=== PATIENT | female | born 1960 | race Caucasian/White ===

== ENCOUNTER → 2020-04-06 10:29 | Outpatient (BNVA) | payer OTHER, SELFPAY | PROVIDERS: PCP Nurse Practitioner Family; Referring Provider Nurse Practitioner Family; Visit Provider Internal Medicine Endocrinology, Diabetes & Metabolism | DX: E11.65 Type 2 diabetes mellitus with hyperglycemia (principal); E11.3559 Type 2 diabetes mellitus with stable proliferative diabetic retinopathy, unspecified eye; E11.21 Type 2 diabetes mellitus with diabetic nephropathy; I10 Essential (primary) hypertension; E78.5 Hyperlipidemia, unspecified; E66.9 Obesity, unspecified; E55.9 Vitamin D deficiency, unspecified; Z79.4 Long term (current) use of insulin | CPT/HCPCS: 99212 ==

== ENCOUNTER → 2020-04-19 14:17 | Outpatient (BNVA) | payer OTHER, SELFPAY | PROVIDERS: PCP Nurse Practitioner Family; Referring Provider Nurse Practitioner Family; Visit Provider Dietitian, Registered | DX: Z76.89 Persons encountering health services in other specified circumstances (principal) ==

== ENCOUNTER 2020-06-28 13:34 | Outpatient (REF) | payer OTHER, SELFPAY ==
--- NOTE | 2020-06-28 13:38 | XR_ITS ---
EXAMINATION: XR ELBOW, LEFT CLINICAL INFORMATION: Trauma, pain left elbow. COMPARISON: Radiographs left elbow 04/16/2013 TECHNIQUE: AP, lateral, and oblique views of the left elbow. FINDINGS: There is no fracture, dislocation, or elbow capsular effusion. Normal bony mineralization. No joint narrowing or erosive change. There is borderline lateral epicondylar spur and a punctate mineralization near triceps insertion olecranon similar to prior study. XR/XR elbow LT min 3V IMPRESSION: 1. No fracture, effusion, or joint narrowing. 2. Borderline lateral epicondylar spur. 3. Punctate mineralization distal triceps similar to 2013.
== END 2020-06-28 13:35 | disposition home or self-care (01) ==
LOC: HO.HMGCX 13:34
PROVIDERS: PCP Nurse Practitioner Family; Visit Provider Nurse Practitioner Family
DX: S59.902A Unspecified injury of left elbow, initial encounter (principal); X58.XXXA Exposure to other specified factors, initial encounter; Y93.9 Activity, unspecified; Y92.9 Unspecified place or not applicable; Y99.8 Other external cause status
CPT/HCPCS: 73080

== ENCOUNTER → 2020-07-03 13:36 | Outpatient (BNVA) | payer OTHER, SELFPAY | PROVIDERS: PCP Nurse Practitioner Family; Visit Provider Internal Medicine Cardiovascular Disease | DX: I25.10 Atherosclerotic heart disease of native coronary artery without angina pectoris (principal) | CPT/HCPCS: 93005; 99212 ==

== ENCOUNTER → 2020-10-22 13:47 | Outpatient (BNVA) | payer OTHER, SELFPAY | PROVIDERS: PCP Nurse Practitioner Family; Visit Provider Dietitian, Registered | DX: E11.21 Type 2 diabetes mellitus with diabetic nephropathy (principal) | CPT/HCPCS: 97803 ==

== ENCOUNTER → 2020-12-07 10:30 | Outpatient (BNVA) | payer OTHER, SELFPAY | PROVIDERS: PCP Nurse Practitioner Family; Visit Provider Internal Medicine Endocrinology, Diabetes & Metabolism | DX: E11.65 Type 2 diabetes mellitus with hyperglycemia (principal); E11.3559 Type 2 diabetes mellitus with stable proliferative diabetic retinopathy, unspecified eye; E11.21 Type 2 diabetes mellitus with diabetic nephropathy; E78.5 Hyperlipidemia, unspecified; E66.9 Obesity, unspecified; E55.9 Vitamin D deficiency, unspecified; Z79.4 Long term (current) use of insulin | CPT/HCPCS: 82947; 99212 ==

== ENCOUNTER 2021-01-22 | Outpatient (REF) | payer OTHER, SELFPAY | END 2021-01-22 00:01 | disposition home or self-care (01) | LOC: HO.LNP | PROVIDERS: Visit Provider Nurse Practitioner Family | DX: Z13.89 Encounter for screening for other disorder (principal) ==

== ENCOUNTER 2021-01-23 14:38 | Outpatient (REF) | payer OTHER, SELFPAY | END 2021-01-23 14:39 | disposition home or self-care (01) | LOC: HO.LNP 14:38 | PROVIDERS: Visit Provider Nurse Practitioner Family | DX: R10.9 Unspecified abdominal pain (principal) | CPT/HCPCS: 87086 ==

== ENCOUNTER → 2021-02-27 11:43 | Outpatient (BNVA) | payer OTHER, SELFPAY | PROVIDERS: PCP Nurse Practitioner Family; Visit Provider Dietitian, Registered | DX: E11.21 Type 2 diabetes mellitus with diabetic nephropathy (principal) | CPT/HCPCS: 97803 ==

== ENCOUNTER → 2021-03-27 10:36 | Outpatient (BNVA) | payer OTHER, SELFPAY | PROVIDERS: PCP Nurse Practitioner Family; Visit Provider Nurse Practitioner Gerontology | DX: E11.65 Type 2 diabetes mellitus with hyperglycemia (principal); E11.3559 Type 2 diabetes mellitus with stable proliferative diabetic retinopathy, unspecified eye; E11.21 Type 2 diabetes mellitus with diabetic nephropathy; E78.5 Hyperlipidemia, unspecified; E55.9 Vitamin D deficiency, unspecified; E66.9 Obesity, unspecified; Z79.4 Long term (current) use of insulin | CPT/HCPCS: 82947; 83036; 99212 ==

== ENCOUNTER 2021-03-27 11:42 | Outpatient (REF) | payer OTHER, SELFPAY ==
[2021-03-27 14:32] LABS: Creatinine Urine 78.68 mg/dL; Microalbum/Creatinine Ratio Ur 208.4 ug/mg cr
[2021-03-27 14:49] LABS: Alanine Aminotransferase 27 U/L (0-31); Albumin Level 4.4 g/dL (3.5-5.0); Alkaline Phosphatase 76 U/L (39-117); Anion Gap 13 (12-20); Aspartate Amino Transferase 14 U/L (5-31); Bilirubin Total 0.4 mg/dL (0.0-1.0); Blood Urea Nitrogen 11 mg/dL (9-16); Calcium 9.5 mg/dL (8.4-10.2); Carbon Dioxide 23 mmol/L (22-29); Chloride 105 mmol/L (96-108); Cholesterol 96 mg/dL; Estimated Glomerular Filt Rate > 60; Glucose Fasting 177 mg/dL (60-99); HDL Cholesterol 30 mg/dL; LDL Cholesterol Calculated 47 mg/dl; Potassium 4.2 mmol/L (3.3-5.1); Sodium 137 mmol/L (135-145); Triglycerides 95 mg/dL
[2021-03-27 14:57] LABS: Free T4 (Free Thyroxine) 0.91 ng/dL (0.71-1.85); Vitamin B12 329 pg/mL (200-900); Vitamin D 25-OH Total 34.5 ng/mL (>30)
[2021-03-28 07:56] LABS: LDL Cholesterol Direct 43 mg/dL (<100)
== END 2021-03-27 11:43 | disposition home or self-care (01) ==
LOC: HO.10HDL 11:42
PROVIDERS: Internal Medicine Endocrinology, Diabetes & Metabolism; Absent Provider Nurse Practitioner Family; Visit Provider Nurse Practitioner Gerontology
DX: E11.65 Type 2 diabetes mellitus with hyperglycemia (principal); R10.9 Unspecified abdominal pain; E55.9 Vitamin D deficiency, unspecified
CPT/HCPCS: 36415; 80053; 80061; 82043; 82306; 82607; 83721; 84439; 84443; 87086

== ENCOUNTER 2021-04-05 11:19 | Outpatient (REF) | payer OTHER, SELFPAY ==
--- NOTE | ~2021-04-05 | MM_ITS ---
EXAMINATION: MM SCREENING DIGITAL BREAST TOMOSYNTHESIS, BILATERAL CLINICAL INFORMATION: Screening. Asymptomatic. The lifetime risk of breast cancer based on the Tyrer-Cuzick Model is 4%. COMPARISON: Mammography: 12/07/2018, 11/23/2017, 11/10/2016 TECHNIQUE: Digital breast tomosynthesis is performed in both the craniocaudal and mediolateral oblique views along with computer-aided detection (CAD). Synthesized 2D images are generated from the tomosynthesis. FINDINGS: The breasts are heterogeneously dense, which may obscure small masses (ACR BI-RADS breast composition Category c). There are no significant masses, abnormal calcifications, or other abnormalities. Breast tissue composition borders on average fibroglandular. Parenchymal pattern is similar to prior exams. The skin contours are smooth. No significant changes. MM/MM tomosynthesis screening BI IMPRESSION: No mammographic evidence of malignancy. ASSESSMENT: BI-RADS 2: Benign RECOMMENDATION: Routine annual mammography screening. This patient's information was entered into a reminder system with a target due date for their next mammogram.
== END 2021-04-05 11:20 | disposition home or self-care (01) ==
LOC: HO.MAMMO 11:19
PROVIDERS: PCP Nurse Practitioner Family; Visit Provider Obstetrics & Gynecology
DX: Z12.31 Encounter for screening mammogram for malignant neoplasm of breast (principal)
CPT/HCPCS: 77063; 77067

== ENCOUNTER → 2021-06-04 11:57 | Outpatient (BNVA) | payer OTHER, SELFPAY | PROVIDERS: PCP Nurse Practitioner Family; Visit Provider Dietitian, Registered | DX: E11.21 Type 2 diabetes mellitus with diabetic nephropathy (principal) | CPT/HCPCS: 97803 ==

== ENCOUNTER → 2021-07-09 13:39 | Outpatient (BNVA) | payer OTHER, SELFPAY | PROVIDERS: PCP Nurse Practitioner Family; Referring Provider Nurse Practitioner Family; Visit Provider Internal Medicine Cardiovascular Disease | DX: I25.10 Atherosclerotic heart disease of native coronary artery without angina pectoris (principal); I10 Essential (primary) hypertension; Z79.82 Long term (current) use of aspirin; Z79.899 Other long term (current) drug therapy | CPT/HCPCS: 93005; 99212 ==

== ENCOUNTER → 2021-07-17 11:32 | Outpatient (BNVA) | payer OTHER, SELFPAY | PROVIDERS: PCP Nurse Practitioner Family; Referring Provider Nurse Practitioner Family; Visit Provider Physician Assistant | DX: Z12.11 Encounter for screening for malignant neoplasm of colon (principal); K21.9 Gastro-esophageal reflux disease without esophagitis | CPT/HCPCS: 99202 ==

== ENCOUNTER → 2021-07-19 10:37 | Outpatient (BNVA) | payer OTHER, SELFPAY | PROVIDERS: PCP Nurse Practitioner Family; Visit Provider Nurse Practitioner Gerontology | DX: E11.65 Type 2 diabetes mellitus with hyperglycemia (principal); E11.21 Type 2 diabetes mellitus with diabetic nephropathy; E11.3559 Type 2 diabetes mellitus with stable proliferative diabetic retinopathy, unspecified eye; E78.5 Hyperlipidemia, unspecified; E66.9 Obesity, unspecified; E55.9 Vitamin D deficiency, unspecified; E04.9 Nontoxic goiter, unspecified; Z79.4 Long term (current) use of insulin; Z68.32 Body mass index [BMI] 32.0-32.9, adult | CPT/HCPCS: 82947; 83036; 99212 ==

== ENCOUNTER 2021-08-22 12:20 | Outpatient (REF) | payer OTHER, SELFPAY ==
--- NOTE | ~2021-08-22 | US_ITS ---
EXAMINATION: US THYROID CLINICAL INFORMATION: Nontoxic goiter, unspecified. COMPARISON: Ultrasound soft tissue head/neck 01/06/2017. TECHNIQUE: Linear transducer grayscale and color Doppler examination with attention to the region of the thyroid. FINDINGS: SIZE: Measurements of the thyroid lobes and nodules are given in sagittal, anteroposterior and transverse dimensions respectively. Right Thyroid Lobe: 3.84 x 2.38 x 1.41 cm, volume 6.73 mL. Parenchyma: The gland echotexture is heterogeneous. Thyroid vascularity is normal. Left Thyroid Lobe: 3.69 x 1.20 x 1.21 cm, volume 2.80 mL. Parenchyma: The gland echotexture is homogeneous. Thyroid vascularity is normal. Isthmus: 0.48 cm in maximum AP dimension. Estimated total number of nodules greater than or equal to 1 cm: 0. 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 Location: Right superior. Size: 0.80 x 0.48 x 0.77 cm, volume 0.15 mL. Nodule characteristics: Composition: Spongiform (0). Echogenicity: Anechoic (0). Shape: Not taller than wide (0). Margins: Smooth (0). Echogenic Foci: None (0). ACR TI-RADS total points: 0 ACR TI-RADS category: 1 NODES: Small nodes less than 0.79 cm in transverse dimension in bilateral neck. US/US thyroid IMPRESSION: Enlarged right thyroid gland. Nonsuspicious subcentimeter right upper pole nodule. ACR TI-RADS RECOMMENDATION REFERENCE: Ultrasound-guided fine-needle aspiration, followup ultrasound, no further follow up. * TR1 (0 point) and TR 2 (2 points): No FNA or follow up * TR3 (3 points): FNA if more than or equal to 2.5 cm in maximum dimension, followup ultrasound in 1, 3 and 5 years if 1.5 to 2.4 cm in maximum dimension. * TR4 (4-6 points): FNA if more than or equal to 1.5 cm in maximum dimension, followup ultrasound in 1, 2, 3 and 5 years if 1 to 1.4 cm in maximum dimension. * TR5 (more than or equal to 7 points): FNA if more than or equal to 1 cm in maximum dimension, followup ultrasound every year for 5 years if 0.5 to 0.9 cm in maximum dimension. * TR3, TR4 or TR5 nodules that are below the size threshold for follow up receive no follow up.
== END 2021-08-22 12:21 | disposition home or self-care (01) ==
LOC: HO.HMGCX 12:20
PROVIDERS: PCP Nurse Practitioner Family; Visit Provider Nurse Practitioner Gerontology
DX: E04.9 Nontoxic goiter, unspecified (principal)
CPT/HCPCS: 76536

== ENCOUNTER 2021-11-05 07:15 | Day surgery (SDC) | payer OTHER, SELFPAY ==
[2021-10-30 15:32] VITALS: BMI 32.5
--- NOTE | 2021-11-04 08:15 | HO.ANESPROP2 ---
Documented by User: Alme Dickinson NP 11/04/21 08:18 HPI - Anesthesia Eval Consult details Narrative: 61yo F for Upper Endoscopy and Colonoscopy Stable 07/2021 at yearly routine cardiac visit [facility] Active Problems Active Problems: All Active Problems (Updated 08/27/21 @ 14:29 by Hernán Underwood MD) Rash (Acute) Low back pain (Acute) Goiter (Acute) Chronic GERD (Acute) HTN (hypertension) (Acute) Screening for colon cancer (Acute) Left flank pain (Acute) Strain of cervical portion of trapezius muscle (Acute) CAD (coronary artery disease) (Acute) Elbow injury (Acute) Vitamin D deficiency (Acute) Obesity (BMI 30-39.9) (Acute) Dyslipidemia (Acute) 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 (Acute) Diabetic nephropathy associated with type 2 diabetes mellitus (Acute) Stable proliferative diabetic retinopathy (Acute) Diabetes type 2, uncontrolled (Acute) Dry both ear canals (Acute) Past Medical History Medical History Bursitis of both shoulders CAD (coronary artery disease) Diabetes Diabetes type 2, uncontrolled Diabetic nephropathy associated with type 2 diabetes mellitus Dyslipidemia HPV (human papilloma virus) infection HTN (hypertension) 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 Migraines Obesity (BMI 30-39.9) Osteoarthritis Pulmonary nodules Stable proliferative diabetic retinopathy Strain of cervical portion of trapezius muscle Tobacco abuse Vitamin D deficiency Family History Family History Father Diabetes mellitus Myocardial infarction Mother Unknown family medical history Maternal Grandmother No problems noted. Maternal Grandfather Unknown family medical history Paternal Grandfather Unknown family medical history Paternal Grandmother Unknown family medical history Paternal Aunt Ovarian cancer Surgical History Surgical History H/O colonoscopy History of section History of hysterectomy History of surgery Social History Social History Housing: House Alcohol intake: current Patient Tobacco Use Status: Current everyday Tobacco user Tobacco use type: Cigarette Cigarettes Per Day: 4 e-Cigarette/Vaping Use: Never Used Advance Directives: No Advance Directives Information Provided: Yes Current occupational status: unemployed Meds Allergies Allergy/AdvReac Type Severity Reaction Status Date / Time hydrocortisone Allergy Rash Verified 11/01/21 13:33 Home Medications Medication Instructions Recorded Confirmed Last Taken Type blood-glucose meter (FreeStyle 03/27/21 07/17/21 Unknown History Lite Meter) Exam Exam Date and Time: November 04, 2021 0815 Height,Weight and Vital Signs: Height 5 ft Weight 75.75 kg Pertinent Lab Results Pertinent Lab Results: Laboratory Tests 01/06/20 03/27/21 12:28 12:00 WBC 4.7 L Hgb 12.4 Hct 40.7 Plt Count 148 L Sodium 137 Potassium 4.2 Chloride 105 Carbon Dioxide 23 BUN 11 Creatinine 0.69 Narrative Narrative: EKG 07/2021 normal sinus rhythm normal EKG at 77 beats per minute Assessment and Plan Assessment Anesthesia Assessment: Chart Reviewed Documented by User: Gena Barron MD 11/05/21 08:41 [facility] Past Medical History Medical History Bursitis of both shoulders CAD (coronary artery disease) Diabetes Diabetes type 2, uncontrolled Diabetic nephropathy associated with type 2 diabetes mellitus Dyslipidemia HPV (human papilloma virus) infection HTN (hypertension) 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 Maternal Grandfather Unknown family medical history Paternal Grandfather Unknown family medical history Paternal Grandmother Unknown family medical history Paternal Aunt Ovarian cancer Surgical History Surgical History H/O colonoscopy History of section History of hysterectomy History of surgery History of Problems with Anesthesia: No Social History Social History Housing: House Alcohol intake: current Patient Tobacco Use Status: Current everyday Tobacco user Tobacco use type: Cigarette Cigarettes Per Day: 4 e-Cigarette/Vaping Use: Never Used Advance Directives: No Advance Directives Information Provided: Yes Current occupational status: unemployed Meds Allergies Allergy/AdvReac Type Severity Reaction Status Date / Time hydrocortisone Allergy Rash Verified 11/01/21 13:33 Home Medications Medication Instructions Recorded Confirmed Last Taken Type blood-glucose meter (FreeStyle 03/27/21 07/17/21 Unknown History Lite Meter) Exam Airway Mallampati Class: II TM Dist: >3cm Neck ROM: Full Loose/Missing/Broken Teeth: Yes, Upper and Lower Heart: RRR Lungs: CTA Assessment and Plan Final Anesthetic Review History of Problems with Anesthesia: No NPO: Yes ASA Class: III Final Preanesthetic Review: Meds/Allgs Chart Reviewed, Consent Obtained/Reviewed and Anes Risks/Benef Reviewed Patient Risk: Intermediate Procedure Risk: Intermediate Anesthetic Plan Anesthetic Plan: MAC: Disposition: Standard PACU
[2021-11-05 07:59] LABS: Glucose, Whole Blood 211 mg/dL (60-115)
[2021-11-05 08:01] VITALS: BP 176/69; PULSE 67; RESP 18; TEMP 36.3; O2SAT 97
--- NOTE | 2021-11-05 08:35 | P.HPSUR_ITS ---
Pre-Procedural Eval Section A Date of Service: 11/05/21 Section B Chief Complaint: screening,reflux Relevant Family History (Specify if Yes): No Relevant Social History: Tobacco Use Present Medications: see Short Stay Collaborative assessment Medical History: Significant History (Bursitis of both shoulders CAD (coronary artery disease) Diabetes Diabetes type 2, uncontrolled Diabetic nephropathy associated with type 2 diabetes mellitus Dyslipidemia HPV (human papilloma virus) infection HTN (hypertension) long-term (current) use of insulin Migraines Obesity (BMI 30-39.9) Osteo) History of Previous Operations: Relevant previous surgery/procedure and date(s) (H/O colonoscopy History of section History of hysterectomy History of surgery) Allergies: Allergies Allergy/AdvReac Type Severity Reaction Status Date / Time hydrocortisone Allergy Rash Verified 11/01/21 13:33 Review of Systems Sugical H&P ROS: Negative: Constitution, Cardiovascular, Respiratory, Neurological, Psychiatric, Hem-Onc, Allergic/Immunologic, Gastrointestinal, Genitourinary, Musculoskeletal, Integumentary, Endocrine and Eyes/Ears/Nose/Throat Exam Surgical H&P Exam: Normal: HEENT, Normal: Heart, Normal: Lungs, Normal: Extr emities, Normal: Abdomen, Normal: Skin and Normal: Neurological Plan Diagnosis/Plan: Unchanged I have reviewed the history and physical and performed a pertinent physical examination on my patient. No changes have occurred unless specified.
--- NOTE | 2021-11-05 08:36 | P.BOP_ITS ---
Brief Operative Note Date of Service: 11/05/21 Pre-op diagnosis: GERD Post-op diagnosis: same Procedure: see op note Surgeon: Felipe Tobar MD Anesthesia: MAC Was an Clinical Trial Data Manager used for this Procedure?: No Estimated blood loss (mL): 0 Condition: stable Disposition: PACU
--- NOTE | 2021-11-05 08:37 | W.PM.OPN ---
Operative Note Operative Note Date of Service: 11/05/21 Narrative: Procedure Description: EGD Indication: GERD Anesthesia: MAC FLEXIBLE TRANSORAL UPPER GASTROINTESTINAL ENDOSCOPY UPPER ENDOSCOPY Consent: Indications for the procedure and potential complications of bleeding, perforation, reaction to medications and missed diagnosis were discussed with the patient and informed consent was obtained. Instrument: Olympus GIF H 190 J mid size upper endoscope Monitoring: Vital signs and clinical assessment, continuous EKG monitoring, Pulse oximetry, Carbon Dioxide monitoring and blood pressure monitoring were done throughout the procedure. Procedure: The patient was placed in the left lateral decubitis position and pre-procedure medications were administered and a bite block was placed. The endoscope was inserted into the mouth and advanced under direct vision to the third part of duodenum. A careful inspection was made as the upper endoscope was withdrawn including a retroflexed examination of the proximal stomach; Findings and interventions are described below. Findings: Larynx:normal Esophagus: GE junction at 37 cm, diaphragm hiatus at 37 cm, no varices or esophagitis, possible short segment barretts, bx taken from GEJ and from distal and proximal esophagus in separate jars Stomach: Patchy gastric erythema. Biopsies were obtained. Grade 2 flap valve on retroflexed examination of the cardia. Duodenum: Normal bulb and descending duodenum, bx taken Intervention: Biopsies as noted above Impression/Findings: gastritis, possible H pylori possible barretts PLAN: await bx if h pylori pos then treat
[2021-11-05 09:03] VITALS: BP 123/54; PULSE 66; RESP 16; TEMP 36.2; O2SAT 100
[2021-11-05 09:18] VITALS: BP 117/66; PULSE 70; RESP 16; TEMP 36.4; O2SAT 96
[2021-11-05] MEDS: Lactated Ringers 1,000 ML 100 ML IVCONT (09:28)
== END 2021-11-05 10:27 | disposition home or self-care (01) ==
PROVIDERS: PCP Nurse Practitioner Family; Visit Provider Internal Medicine Gastroenterology
PROC: (CPT 43239; principal; 2021-11-05 08:50)
DX: K21.9 Gastro-esophageal reflux disease without esophagitis (principal); K29.50 Unspecified chronic gastritis without bleeding; K44.9 Diaphragmatic hernia without obstruction or gangrene; I25.10 Atherosclerotic heart disease of native coronary artery without angina pectoris; I10 Essential (primary) hypertension; E78.5 Hyperlipidemia, unspecified; E11.21 Type 2 diabetes mellitus with diabetic nephropathy; E11.3559 Type 2 diabetes mellitus with stable proliferative diabetic retinopathy, unspecified eye; E55.9 Vitamin D deficiency, unspecified; Z79.4 Long term (current) use of insulin; Z79.82 Long term (current) use of aspirin; Z79.899 Other long term (current) drug therapy; Z88.8 Allergy status to other drugs, medicaments and biological substances; F17.210 Nicotine dependence, cigarettes, uncomplicated
CPT/HCPCS: 43239; 82947; 88305; 88342

== ENCOUNTER 2021-11-14 10:21 | Outpatient (REF) | payer OTHER, SELFPAY ==
--- NOTE | ~2021-11-14 | XR_ITS ---
EXAMINATION: XR KNEE, LEFT CLINICAL INFORMATION: Pain left knee. COMPARISON: None TECHNIQUE: Four views of the left knee. FINDINGS: There is loss of tricompartment joint space with periapical spurring in the lateral and patellofemoral compartments. There is mild suprapatellar joint effusion with anterior superior patellar enthesophyte. No visible acute fracture, dislocation or lytic process seen. No bony erosive changes seen. XR/XR knee LT 4V IMPRESSION: Degenerative arthritic changes involving the tricompartment. Mild suprapatellar joint effusion. No acute fracture or dislocation seen.
== END 2021-11-14 10:22 | disposition home or self-care (01) ==
LOC: HO.HMGCX 10:21
PROVIDERS: Visit Provider Nurse Practitioner Family
DX: M25.562 Pain in left knee (principal)
CPT/HCPCS: 73564

== ENCOUNTER → 2021-12-03 12:20 | Outpatient (BNVA) | payer OTHER, SELFPAY | PROVIDERS: PCP Nurse Practitioner Family; Visit Provider Dietitian, Registered | DX: E11.21 Type 2 diabetes mellitus with diabetic nephropathy (principal); Z79.4 Long term (current) use of insulin; Z71.3 Dietary counseling and surveillance | CPT/HCPCS: 97803 ==

== ENCOUNTER 2022-01-23 13:00 | Outpatient (RCR) | payer OTHER, SELFPAY ==
--- NOTE | 2021-12-19 13:48 | MHC.PT.EP ---
[facility] [place] Office [place] Office [place] Office [address] Edgar Osborne [address] [phone] F: [phone] F: [phone] F: [phone] F: [phone] Physical Therapy Plan of Care Date of Evaluation: Date of Surgery: n/a Diagnosis: pain in L knee Assessment: Patient is a 61 year old female presenting to PT with complaints of pain in pain in her L knee. Pt reports onset of pain began 2 years ago due to possibly over stretching it. She presents today with impairments in pain, knee ROM, knee strength, hip strength. Pt's current occupation is none, with baseline physical activities including ADLs, ambulation, and stair negotiation. Pt expresses jail goal of reducing pain, and is motivated to work towards this in PT. Clinical presentation today is most consistent with signs and sx associated with chronic knee pain and pt will benefit from skilled PT to address the following problems and impairments noted upon evaluation: pain, knee ROM, knee strength, hip strength. These problems limit the patient with the following functional activities: ambulation, ADLs, stair negotiation. The prescribed treatment plan of care is medically necessary. Co-morbidities of CAD, T2DM, HTN, hx L hip surgery for leg length discrepancy in [place] at age 7 which is severely limiting her hip ROM were identified and taken into considerations of plan of care. Pt was educated on HEP, role of PT, prognosis, POC. Frequency and Duration: The patient will be seen 2 x week x 4 weeks Short Term Goals: Pt will demonstrate reduced pain to <4/10 in 2 weeks for improved QOL. Pt will demonstrate improved hip strength in abd by 1/3 MMT to 4/5 in 2 weeks for improved lumbopelvic stability. Pt will demonstrate improved knee MMT by 1/3 grade in 2 weeks. Group Home Goals: Pt will demonstrate improved LEFI score by 9 points in 4 weeks for improved functional mobility. Pt will demonstrate ability to negotiate stairs with min pain in 4 weeks for improved access to her home. Pt will demonstrate improved pain with ambulation in 4 weeks for improved access to the community. Treatment Plan: Modalities to reduce pain, spasms and effusion. Manual therapy to restore motion and function. Therapeutic exercise to improve strength and flexibility. Neuromuscular re-education for posture and balance. Therapeutic activities to return to functional activities of daily living. Electronically signed by: Mirna Dukes PT, DPT, ATC Please sign and return to therapist. Thank you for your referral.
--- NOTE | 2022-01-23 13:52 | MHC.PT.DC ---
[facility] [place] Office [place] Office [place] Office [address] Edgar Osborne [address] [phone] F: [phone] F: [phone] F: [phone] F: [phone] Physical Therapy Discharge Report Diagnosis: pain in L knee Date of Surgery: n/a Date of Evaluation: 12/19/21 Date of Discharge: 01/23/22 Treatments to Date: 9 Cancellations to Date: 1 No Shows to Date: 1 Discharge Status: Independent with HEP Recommend MD Follow-up Discharge Summary: Pt continues to be limited by pain more so in the back vs the knee but the knee is also continuing to give her problems. She has made some progress towards her goals but continues with functional limitations especially on the stairs. At this point appears pt has reached a plateau as there has been no new progress recently in terms of the knee. She does have underlying hip problems that are likely contributing to her knee and back pain. Discussed with pt recommendation to follow up with ortho to see if there is anything further they can do for her as we have maximized all benefits of skilled PT at this time. Pt is in agreement with this plan. Advised continuation of HEP as she has made some strength gains to this point. Electronically signed by: Mirna Dukes, PT, DPT, ATC Please sign and return to therapist. Thank you for your referral.
== END 2022-01-23 13:53 | disposition home or self-care (01) ==
LOC: HO.PTCHIC 13:00
PROVIDERS: PCP Nurse Practitioner Family; Visit Provider Nurse Practitioner Family
DX: M25.562 Pain in left knee (principal)
CPT/HCPCS: 97110; 97140; 97162

== ENCOUNTER 2022-02-11 10:50 | Outpatient (REF) | payer OTHER, SELFPAY ==
[2022-02-11 13:45] LABS: MANUAL DIFF FLAG NO
[2022-02-11 13:52] LABS: Appearance Urine Clear; Color Urine Yellow; Glucose Urine UA >=1000 mg/dL (Negative); Leukocyte Esterase Urine Negative (Negative); Nitrite Urine Negative (Negative); PH 6.5 (5.0-9.0); Specific Gravity - Urine 1.025 (1.005-1.025); UMIC TRIGGER UACC YES; Urine Blood Negative (Negative); Urine Ketones Negative (Negative); Urine Protein 30 (1+) mg/dL (Neg-Trace)
[2022-02-11 13:55] LABS: Bacteria Urine Trace (None Seen); Hyaline Casts Urine 0-2 /LPF (0-2); RBC Urine 0-2 /HPF (0-2); WBC Urine 0-5 /HPF (0-5)
[2022-02-11 13:59] LABS: Basophils Percent Auto 0.7 % (0-2); Eosinophils Absolute Auto 0.2 X10*3/uL (0.0-0.4); Eosinophils Percent Auto 3.6 % (0-4); Hematocrit 38.7 % (37.0-47.0); Hemoglobin 12.5 g/dl (12.0-16.0); Lymphocytes Percent Auto 47.1 % (20-40); Mean Corpuscular HGB Conc 32.3 g/dl (31.0-35.0); Mean Corpuscular Hemoglobin 25.8 pg (27.0-33.0); Mean Platelet Volume 12.6 fL (9.4-12.3); Monocytes Absolute Auto 0.4 X10*3/uL (0.1-1.2); Monocytes Percent Auto 8.6 % (2-11); Neutrophils Absolute Auto 1.7 x10*3/uL (2.0-8.3); Platelet Count 168 X10*3/uL (160-400); Red Blood Count 4.84 X10*6/uL (4.20-5.50); Red Cell Distribution Width 13.9 % (11.0-16.0); White Blood Count 4.2 X10*3/uL (4.8-10.8)
[2022-02-11 14:00] LABS: Estimated Average Glucose 243 mg/dL; Hemoglobin A1c % 10.1 %
[2022-02-11 14:04] LABS: Alanine Aminotransferase 32 U/L (0-31); Albumin Level 4.1 g/dL (3.5-5.0); Alkaline Phosphatase 80 U/L (39-117); Anion Gap 12 (12-20); Aspartate Amino Transferase 15 U/L (5-31); Bilirubin Total 0.2 mg/dL (0.0-1.0); Blood Urea Nitrogen 12 mg/dL (9-16); Calcium 9.2 mg/dL (8.4-10.2); Carbon Dioxide 27 mmol/L (22-29); Chloride 104 mmol/L (96-108); Cholesterol 124 mg/dL; Estimated Glomerular Filt Rate > 60; Glucose Fasting 299 mg/dL (60-99); HDL Cholesterol 32 mg/dL; LDL Cholesterol Calculated 64 mg/dl; Sodium 139 mmol/L (135-145); Total Protein 6.7 g/dL (6.5-8.0); Triglycerides 140 mg/dL
[2022-02-11 14:16] LABS: Creatinine Urine 58.68 mg/dL; Microalbum/Creatinine Ratio Ur 247.1 ug/mg cr
[2022-02-11 14:29] LABS: TSH reflex Free T4 2.09 uIU/mL (0.32-4.0)
== END 2022-02-11 10:51 | disposition home or self-care (01) ==
LOC: HO.HMGCLDS 10:50
PROVIDERS: PCP Nurse Practitioner Family; Visit Provider Nurse Practitioner Family
DX: E11.65 Type 2 diabetes mellitus with hyperglycemia (principal)
CPT/HCPCS: 36415; 80053; 80061; 81001; 82043; 83036; 84443; 85025

== ENCOUNTER 2022-04-07 11:30 | Outpatient (REF) | payer OTHER, SELFPAY ==
--- NOTE | ~2022-04-07 | MM_ITS ---
EXAMINATION: MM SCREENING DIGITAL BREAST TOMOSYNTHESIS, BILATERAL CLINICAL INFORMATION: Screening. Asymptomatic. COMPARISON: Mammography: 04/05/2021, 04/09/2019, 11/23/2017 TECHNIQUE: Digital breast tomosynthesis is performed in both the craniocaudal and mediolateral oblique views along with computer-aided detection (CAD). Synthesized 2D images are generated from the tomosynthesis. FINDINGS: The breasts are heterogeneously dense, which may obscure small masses (ACR BI-RADS breast composition Category c). Breast tissue composition borders on average fibroglandular. Parenchymal pattern is similar to prior studies. There are no significant masses, abnormal calcifications, or other abnormalities. Axilla and skin contours are unremarkable. No significant changes. MM/MM tomosynthesis screening BI IMPRESSION: No mammographic evidence of malignancy. ASSESSMENT: BI-RADS 1: Negative RECOMMENDATION: Routine annual mammography screening. This patient's information was entered into a reminder system with a target due date for their next mammogram.
== END 2022-04-07 11:31 | disposition home or self-care (01) ==
LOC: HO.MAMMO 11:30
PROVIDERS: PCP Nurse Practitioner Family; Visit Provider Nurse Practitioner Family
DX: Z12.31 Encounter for screening mammogram for malignant neoplasm of breast (principal)
CPT/HCPCS: 77063; 77067

== ENCOUNTER 2022-04-28 11:00 | Outpatient (RCR) | payer OTHER, SELFPAY ==
--- NOTE | 2022-04-03 11:04 | MHC.PT.EP ---
[facility] [place] Office [place] Office [place] Office [address] Edgar Osborne [address] [phone] F: [phone] F: [phone] F: [phone] F: [phone] Physical Therapy Plan of Care Date of Evaluation: Date of Surgery: none Diagnosis: low back pain Assessment: Patient is a 61 year old R handed female who presents with s/s consistent with low back pain. She does not work but does like to stay active and take care of the house. She does have help with cleaning and food. Patient past medical history includes chronic back pain and hip surgery at 7 yo with significant residual impairment. Current impairments include pain, posture, ROM, strength, activity tolerance and functional mobility. Functional limitations include decreased ability to sleep, walk, stand, transfer and be on feet for more than a few minutes. Patient is motivated with good rehab potential. Skilled PT will address impairments and functional limitations in order to achieve goals. Frequency and Duration: The patient will be seen 2x/week for 5 weeks Short Term Goals: I with HEP - 2 weeks Able to amb with cane - optimal mechanics - 3 weeks Family Practice Doctor Goals: LE strength 4-/5 grossly - 5 weeks Able to walk > 5 minutes without increased pain - 5 weeks Oswestry 50% or less - 5 weeks Treatment Plan: Modalities to reduce pain, spasms and effusion. Manual therapy to restore motion and function. Therapeutic exercise to improve strength and flexibility. Neuromuscular re-education for posture and balance. Therapeutic activities to return to functional activities of daily living. Electronically signed by: Caio Galloway, PT Please sign and return to therapist. Thank you for your referral.
--- NOTE | 2022-08-08 08:29 | MHC.PT.DC ---
[facility] [place] Office [place] Office [place] Office [address] Edgar Osborne [address] [phone] F: [phone] F: [phone] F: [phone] F: [phone] Physical Therapy Discharge Report Diagnosis: low back pain Date of Surgery: none Date of Evaluation: 04/03/22 Date of Discharge: 05/25/22 Treatments to Date: 4 Cancellations to Date: No Shows to Date: Discharge Status: Independent with HEP Discharge Summary: She is very weak in L quads and glutes and fatigues easily with exercises. I educated her that L hip weakness and limitations are causing compensation in low back which is contributing to L sided LBP. I gave her a 3/8 heel lift in L shoe as she has a gel lift/heel cup which I told her was not supportive enough and this made her gait compensations less. Electronically signed by: Caio Galloway PT Please sign and return to therapist. Thank you for your referral.
== END 2022-08-13 09:01 | disposition home or self-care (01) ==
LOC: HO.PTCHIC 11:00
PROVIDERS: PCP Nurse Practitioner Family; Visit Provider Nurse Practitioner Family
DX: M54.50 Low back pain, unspecified (principal)
CPT/HCPCS: 97110; 97116; 97162

== ENCOUNTER 2022-07-02 10:05 | Outpatient (REF) | payer OTHER, SELFPAY ==
--- NOTE | ~2022-07-02 | XR_ITS ---
EXAMINATION: XR KNEE AP STANDING X-ray left knee CLINICAL INFORMATION: Knee pain COMPARISON: X-ray left knee 11/14/2021 TECHNIQUE: AP bilateral standing view of the knees was obtained. 1 skyline view left knee FINDINGS: Left knee: Moderate-severe medial compartment joint space narrowing, marginal osteophytes. Mild degenerative varus. Marginal osteophytes in the lateral compartment. Prominent marginal osteophytes in the patellofemoral compartment with mild joint space loss. No acute fracture or dislocation. Right knee: There is a medial and lateral compartment joint space narrowing, small marginal osteophytes. XR/XR knee standing BI IMPRESSION: Left knee: Tricompartment osteoarthritis. Moderate-severe medial compartment arthritis. Interval worsening from previous. Right knee: Mild osteoarthritis
--- NOTE | ~2022-07-02 | XR_ITS ---
EXAMINATION: XR KNEE AP STANDING X-ray left knee CLINICAL INFORMATION: Knee pain COMPARISON: X-ray left knee 11/14/2021 TECHNIQUE: AP bilateral standing view of the knees was obtained. 1 skyline view left knee FINDINGS: Left knee: Moderate-severe medial compartment joint space narrowing, marginal osteophytes. Mild degenerative varus. Marginal osteophytes in the lateral compartment. Prominent marginal osteophytes in the patellofemoral compartment with mild joint space loss. No acute fracture or dislocation. Right knee: There is a medial and lateral compartment joint space narrowing, small marginal osteophytes. XR/XR knee LT 1V IMPRESSION: Left knee: Tricompartment osteoarthritis. Moderate-severe medial compartment arthritis. Interval worsening from previous. Right knee: Mild osteoarthritis
== END 2022-07-02 10:06 | disposition home or self-care (01) ==
LOC: HO.HOSX 10:05
PROVIDERS: Visit Provider Physician Assistant
DX: M17.12 Unilateral primary osteoarthritis, left knee (principal); M25.561 Pain in right knee
CPT/HCPCS: 20610; 73560; 73565; 99202; J1020

== ENCOUNTER 2022-07-07 09:06 | Outpatient (REF) | payer OTHER, SELFPAY ==
[2022-07-07 11:18] LABS: MANUAL DIFF FLAG NO
[2022-07-07 11:37] LABS: Basophils Percent Auto 0.8 % (0-2); Eosinophils Absolute Auto 0.2 X10*3/uL (0.0-0.4); Eosinophils Percent Auto 2.9 % (0-4); Hematocrit 41.1 % (37.0-47.0); Hemoglobin 12.8 g/dl (12.0-16.0); Imm Gran Abs Auto 0.01 X10*3/uL (0.00-0.03); Imm Gran Pct Auto 0.2 % (0.0-0.4); Lymphocytes Absolute Auto 2.4 X10*3/uL (1.2-4.9); Lymphocytes Percent Auto 45.8 % (20-40); Mean Corpuscular HGB Conc 31.1 g/dl (31.0-35.0); Mean Corpuscular Hemoglobin 25.6 pg (27.0-33.0); Mean Corpuscular Volume 82.2 fL (80.0-98.0); Mean Platelet Volume 12.6 fL (9.4-12.3); Monocytes Absolute Auto 0.5 X10*3/uL (0.1-1.2); Monocytes Percent Auto 8.9 % (2-11); Neutrophils Absolute Auto 2.1 x10*3/uL (2.0-8.3); Neutrophils Percent Auto 41.4 % (45-73); Platelet Count 185 X10*3/uL (160-400); Red Cell Distribution Width 14.3 % (11.0-16.0); White Blood Count 5.2 X10*3/uL (4.8-10.8)
[2022-07-07 12:04] LABS: Estimated Average Glucose 237 mg/dL; Hemoglobin A1c % 9.9 %
[2022-07-07 12:06] LABS: Alanine Aminotransferase 25 U/L (0-31); Albumin Level 4.1 g/dL (3.5-5.0); Alkaline Phosphatase 79 U/L (39-117); Anion Gap 10 (12-20); Aspartate Amino Transferase 16 U/L (5-31); Bilirubin Total 0.3 mg/dL (0.0-1.0); Blood Urea Nitrogen 12 mg/dL (9-16); Calcium 9.1 mg/dL (8.4-10.2); Carbon Dioxide 26 mmol/L (22-29); Chloride 108 mmol/L (96-108); Cholesterol 116 mg/dL; Estimated Glomerular Filt Rate > 60; Glucose Fasting 138 mg/dL (60-99); HDL Cholesterol 35 mg/dL; LDL Cholesterol Calculated 59 mg/dl; Potassium 3.9 mmol/L (3.3-5.1); Sodium 140 mmol/L (135-145); Total Protein 6.6 g/dL (6.5-8.0); Triglycerides 110 mg/dL
[2022-07-07 12:13] LABS: Appearance Urine Clear; Color Urine Yellow; Glucose Urine UA Negative (Negative); Leukocyte Esterase Urine Trace (Negative); Nitrite Urine Negative (Negative); UMIC TRIGGER UACC YES; Urine Blood Negative (Negative); Urine Ketones Negative (Negative); Urine Protein 30 (1+) mg/dL (Neg-Trace)
[2022-07-07 12:19] LABS: Bacteria Urine None Seen (None Seen); Hyaline Casts Urine 0-2 /LPF (0-2); RBC Urine 0-2 /HPF (0-2); WBC Urine 0-5 /HPF (0-5)
[2022-07-07 12:26] LABS: TSH reflex Free T4 3.29 uIU/mL (0.32-4.0)
== END 2022-07-07 09:07 | disposition home or self-care (01) ==
LOC: HO.HMGCLDS 09:06
PROVIDERS: Nurse Practitioner Gerontology; PCP Nurse Practitioner Family; Visit Provider Nurse Practitioner Family
DX: E11.65 Type 2 diabetes mellitus with hyperglycemia (principal); E04.9 Nontoxic goiter, unspecified
CPT/HCPCS: 36415; 80053; 80061; 81001; 81003; 83036; 84443; 85025

== ENCOUNTER → 2022-08-01 10:31 | Outpatient (BNVA) | payer OTHER, SELFPAY | PROVIDERS: PCP Nurse Practitioner Family; Visit Provider Internal Medicine Gastroenterology | DX: Z11.0 Encounter for screening for intestinal infectious diseases (principal); E11.65 Type 2 diabetes mellitus with hyperglycemia; E11.21 Type 2 diabetes mellitus with diabetic nephropathy; E11.3559 Type 2 diabetes mellitus with stable proliferative diabetic retinopathy, unspecified eye; I10 Essential (primary) hypertension; E78.5 Hyperlipidemia, unspecified; E55.9 Vitamin D deficiency, unspecified; F17.210 Nicotine dependence, cigarettes, uncomplicated; Z79.4 Long term (current) use of insulin | CPT/HCPCS: Q3014 ==

== ENCOUNTER 2022-08-15 14:09 | Outpatient (REF) | payer OTHER, SELFPAY ==
--- NOTE | ~2022-08-15 | CT_ITS ---
EXAMINATION: LUNG CANCER SCREENING CT CHEST WITHOUT CONTRAST CLINICAL INFORMATION: Current smoker with 42 pack year history COMPARISON: 05/08/2015 TECHNIQUE: Multidetector volumetric CT imaging of the chest was obtained noncontrast using low dose screening CT technique. Axial thin section 0.625 mm reformations in soft tissue and lung windows were obtained. Sagittal and coronal reformations were obtained. Axial MIP images were also created and reviewed. This CT examination was performed using dose optimization techniques as appropriate, variously including the following: *Automated exposure control *Adjustment of mA and/or kV according to patient size (this includes techniques or standardized protocols for targeted exams where dose is matched to indication/reason for exam; i.e. extremities or head) *Use of iterative reconstruction technique TOTAL EXAM DLP: 50 mGy-cm. FINDINGS: PULMONARY NODULES: No suspicious pulmonary nodules. There are a few stable scattered pulmonary nodules measuring 4 mm or less in mean diameter (see cruz images). LUNGS / PLEURA: Mild emphysema. Diffuse mild bronchial wall thickening without bronchiectasis. No pleural effusion or pneumothorax. MEDIASTINUM / PABLO: Heart normal in size without pericardial effusion. Great vessels normal caliber. No lymphadenopathy. Coronary calcifications present. Imaged thyroid gland unremarkable. CHEST WALL / AXILLA: Unremarkable. UPPER ABDOMEN: Included portions grossly unremarkable allowing for limitations in technique. OSSEOUS STRUCTURES: No acute or suspicious osseous abnormalities. CT/CT lung screening IMPRESSION: * No evidence of pulmonary malignancy. * There are no pulmonary nodules that meet criteria for short interval follow-up at this time. ASSESSMENT: Lung RADS category: 2. Benign appearance or behavior. Nodules with a very low likelihood of becoming a clinically active cancer due to size or lack of growth. Continue annual screening with low-dose CT in 12 months. Probability of malignancy less than 1%. INCIDENTAL FINDINGS (S CATEGORY): None. RECOMMENDATION: Follow up low dose CT chest in 1 year.
== END 2022-08-15 14:10 | disposition home or self-care (01) ==
LOC: HO.CT 14:09
PROVIDERS: Visit Provider Physician Assistant Medical
DX: Z12.2 Encounter for screening for malignant neoplasm of respiratory organs (principal); F17.210 Nicotine dependence, cigarettes, uncomplicated
CPT/HCPCS: 71271; G0296

== ENCOUNTER 2022-09-11 12:25 | Outpatient (REF) | payer OTHER, SELFPAY ==
[2022-09-13 15:22] LABS: H Pylori Breath Test Positive (Negative)
== END 2022-09-11 12:26 | disposition home or self-care (01) ==
LOC: HO.LNP 12:25
PROVIDERS: Visit Provider Internal Medicine Gastroenterology
DX: Z01.810 Encounter for preprocedural cardiovascular examination (principal); I10 Essential (primary) hypertension; I25.10 Atherosclerotic heart disease of native coronary artery without angina pectoris; M17.12 Unilateral primary osteoarthritis, left knee; E11.9 Type 2 diabetes mellitus without complications; F17.210 Nicotine dependence, cigarettes, uncomplicated; Z11.0 Encounter for screening for intestinal infectious diseases; Z79.899 Other long term (current) drug therapy
CPT/HCPCS: 83013; 93005; 99211; 99212

== ENCOUNTER → 2022-09-29 11:53 | Outpatient (BNVA) | payer OTHER, SELFPAY | PROVIDERS: PCP Nurse Practitioner Family; Visit Provider Dietitian, Registered | DX: E11.21 Type 2 diabetes mellitus with diabetic nephropathy (principal) | CPT/HCPCS: 97803 ==

== ENCOUNTER 2022-11-06 08:54 | Outpatient (REF) | payer OTHER, SELFPAY ==
[2022-11-07 12:26] LABS: H Pylori Breath Test Positive (Negative)
== END 2022-11-06 08:55 | disposition home or self-care (01) ==
LOC: HO.LNP 08:54
PROVIDERS: PCP Nurse Practitioner Family; Referring Provider Nurse Practitioner Family; Visit Provider Internal Medicine Gastroenterology
DX: Z11.0 Encounter for screening for intestinal infectious diseases (principal)
CPT/HCPCS: 83013; 99211

== ENCOUNTER 2022-11-13 10:22 | Outpatient (REF) | payer OTHER, SELFPAY ==
--- NOTE | ~2022-11-13 | XR_ITS ---
EXAMINATION: XR SHOULDER, RIGHT CLINICAL INFORMATION: Pain COMPARISON: None available. TECHNIQUE: Three views of the right shoulder. FINDINGS: Bone alignment is normal. No fracture or dislocation. Mild arthritis at the acromioclavicular joint. The humeral joint is normal. Small osteophyte and soft tissue calcification at the greater tuberosity. XR/XR shoulder RT min 2V IMPRESSION: Degenerative changes.
== END 2022-11-13 10:23 | disposition home or self-care (01) ==
LOC: HO.HOSX 10:22
PROVIDERS: PCP Nurse Practitioner Family; Visit Provider Physician Assistant
DX: M19.011 Primary osteoarthritis, right shoulder (principal); M75.81 Other shoulder lesions, right shoulder
CPT/HCPCS: 20610; 73030; 99202; J1020

== ENCOUNTER 2023-04-02 09:49 | Outpatient (AMB) | payer OTHER, SELFPAY ==
--- NOTE | 2023-04-02 10:00 | A.OFFPC_ITS ---
Vital Signs 04/02/23 10:02 Height 5 ft Weight 167 lb BMI 32.6 BP 148/74 H Blood Pressure Location Lt brachial Position Sitting Pulse 98 Pulse Source Pulse Oximeter Pulse Oximetry (%) 97 Oxygen Delivery Method Room Air Intake Visit Reasons: 3-4M follow up Allergies hydrocortisone Allergy (Verified 04/02/23 10:05) Rash Tobacco use date assessed: 04/02/23 Dental Screening Dental Screen Date: 04/02/23 Did you have a dental visit in the last 12 months?: Yes Did you have a dental problem in the last 6 months where you did not have access to dental care?: No Was dental information given to patient?: Patient has dentist HPI 3-4M follow up HPI Details Pt is a diabetic, on a statin. Due for A1C and microalbumin. Denies polyuria, polydipsia, and neuropathy. Pt denies any signs and symptoms of hypoglycemia and does know how to correct it. Pt reports that her blood sugar has been around 130. Labs have been ordered, highly encouraged pt to have these drawn. Pt has an upcoming appointment with endo. Will start irbesartan due to elevated BP and renal protection. 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 Maternal Grandfather Unknown family medical history Paternal Grandfather Unknown family medical history Paternal Grandmother Unknown family medical history Paternal Aunt Ovarian cancer Social History Housing: House Alcohol intake: current Patient Tobacco Use Status: Current everyday Tobacco user Tobacco use type: Cigarette Cigarettes Per Day: 6 Years Smoked: (onset 30yo, 1ppd x 32yrs, now 6-7cig/day, 30pyh) e-Cigarette/Vaping Use: Never Used Second Hand Smoke Exposure: No Current occupational status: unemployed Cognitive needs: No Hearing needs: No Vision needs: No Questionnaire Thrive Questionnaire Date Thrive assessed: 07/03/22 AUDIT C Alcohol Use Questionnaire (AUDIT-C) 1. How often do you have a drink containing alcohol?: Never 3. How often do you have six or more drinks on one occasion?: Never Total Score: 0 Score Reviewed/Action Taken: Yes RUDOLPH-7 AMB Questionnaire RUDOLPH-7 Date RUDOLPH - 7 assessed: 07/03/22 Source: Developed by Drs. Bryson Roca, Siri Ray, Jay Simms and colleagues, with an educational toby from [employer]. Review of Systems Const Reports as per HPI Physical exam (Primary Care) Vital Signs: Last Vital Signs Pulse 98 04/02/23 10:02 BP 148/74 H 04/02/23 10:02 Pulse Ox 79 L 04/02/23 10:02 Oxygen Delivery Method Room Air 04/02/23 10:02 BMI result Body Mass Index 32.6 Tobacco/Smoking Status: Tobacco use Status Tobacco use date assessed 04/02/23 04/02/23 10:06 Patient Tobacco Use Status Current everyday Tobacco 04/02/23 10:06 Tobacco use type Cigarette 04/02/23 10:06 e-Cigarette/Vaping Use Never Used 04/02/23 10:06 Thrive Assessment: Date of Thrive Assessment Date Thrive assessed 07/03/22 04/02/23 10:06 Const General: cooperative Nutritional Appearance: obese Orientation/consciousness: patient oriented x3 Resp Effort & Inspection: normal respiratory effort Auscultation: clear to auscultation bilaterally Cardio Rate: regular rate Rhythm: regular rhythm Heart sounds: S1 normal heart sound present and S2 normal heart sound present Neuro General: patient oriented x3 Extrem Other: bilat feet: + sensation with use of monofilament, feet intact Psych Appearance: grossly normal Mental Status: mental status grossly normal Speech and movement: Normal speech and movement present Affect: normal affect Attitude: cooperative Thought process: Normal thought process present Thought content: Normal thought content present Insight: Good insight present (Psych) Judgement: Good judgement present (Psych) Immunizations pneumoc 20-prabhu conj-dip cr(PF) 0.5 mL IM syringe Performing Provider: REGINA Ibrahim Performing Location: [facility] Administered by: PIETRO Toledo on 04/02/23 10:41 Dose Route Admin Location Dispensed Lot Number Expiration Date NDC Audio Engineer 0.5 mL IM Left Deltoid 0.5 mL [id number] 12/31/23 [employer] VIS Given Date VIS Provided VIS Publication Date 04/02/23 Single Vaccine 21 Eligibility Eligibility Date Funding Source Not VFC Eligible 04/02/23 Private Assessment and Plan Assessment & Plan (1) Diabetes type 2, uncontrolled: Comment: (IDDM2 - nephropathy, retinopathy) Code(s): E11.65 - Type 2 diabetes mellitus with hyperglycemia Plan: Labs ordered Plan The patient agreed to the use of a medical records field technician for this encounter. Scribed for REGINA Sotelo by Marybeth Queen medical records field technician, on 04/02/2023 at 10:10 EST. Orders: Orders Microalbumin, Random (w Creat) Today E11.65 - Type 2 diabetes mellitus with hyperglycemia Pneumococcal 20 Immunization Today Z23 - Encounter for immunization Medications: New irbesartan 75 mg PO DAILY 90 tabs 0RF Coding Level of Care Code Est Pt Level 3 (78453) Diagnoses Diabetes type 2, uncontrolled E11.65
[2023-04-02 10:02] VITALS: BP 148/74; PULSE 98; O2SAT 97; BMI 32.6
== END 2023-04-02 11:22 | disposition home or self-care (01) ==
PROVIDERS: PCP Nurse Practitioner Family; Visit Provider Nurse Practitioner Family
DX: Z23 Encounter for immunization (principal); E11.65 Type 2 diabetes mellitus with hyperglycemia
CPT/HCPCS: 90471; 90677; 99213

== ENCOUNTER 2023-04-07 10:20 | Outpatient (REF) | payer OTHER, SELFPAY ==
[2023-04-07 13:22] LABS: Appearance Urine Clear; Color Urine Yellow; Glucose Urine UA Negative (Negative); Leukocyte Esterase Urine Negative (Negative); Nitrite Urine Negative (Negative); PH 7.5 (5.0-9.0); Urine Blood Negative (Negative); Urine Ketones Negative (Negative); Urine Protein Trace mg/dL (Neg-Trace)
[2023-04-07 13:30] LABS: MANUAL DIFF FLAG NO
[2023-04-07 13:43] LABS: Basophils Percent Auto 0.9 % (0-2); Eosinophils Absolute Auto 0.2 X10*3/uL (0.0-0.4); Eosinophils Percent Auto 4.4 % (0-4); Hematocrit 40.1 % (37.0-47.0); Hemoglobin 12.4 g/dl (12.0-16.0); Imm Gran Abs Auto 0.01 X10*3/uL (0.00-0.03); Imm Gran Pct Auto 0.2 % (0.0-0.4); Lymphocytes Absolute Auto 2.1 X10*3/uL (1.2-4.9); Lymphocytes Percent Auto 46.8 % (20-40); Mean Corpuscular HGB Conc 30.9 g/dl (31.0-35.0); Mean Corpuscular Hemoglobin 25.5 pg (27.0-33.0); Mean Corpuscular Volume 82.3 fL (80.0-98.0); Mean Platelet Volume 12.2 fL (9.4-12.3); Monocytes Absolute Auto 0.3 X10*3/uL (0.1-1.2); Neutrophils Absolute Auto 1.9 x10*3/uL (2.0-8.3); Neutrophils Percent Auto 40.7 % (45-73); Platelet Count 185 X10*3/uL (160-400); Red Blood Count 4.87 X10*6/uL (4.20-5.50); White Blood Count 4.6 X10*3/uL (4.8-10.8)
[2023-04-07 13:59] LABS: Estimated Average Glucose 189 mg/dL; Hemoglobin A1c % 8.2 % (<6.0)
[2023-04-07 14:07] LABS: Alanine Aminotransferase 29 U/L (0-31); Alkaline Phosphatase 74 U/L (39-117); Anion Gap 11 (12-20); Aspartate Amino Transferase 16 U/L (5-31); Bilirubin Total 0.3 mg/dL (0.0-1.0); Blood Urea Nitrogen 12 mg/dL (9-16); Calcium 9.5 mg/dL (8.4-10.2); Carbon Dioxide 27 mmol/L (22-29); Chloride 108 mmol/L (96-108); Cholesterol 111 mg/dL (<200); Estimated Glomerular Filt Rate > 60; Glucose Fasting 130 mg/dL (60-99); HDL Cholesterol 30 mg/dL (>40); LDL Cholesterol Calculated 55 mg/dL (<100); Potassium 4.1 mmol/L (3.3-5.1); Sodium 142 mmol/L (135-145); Total Protein 7.1 g/dL (6.5-8.0); Triglycerides 132 mg/dL (<150)
[2023-04-07 14:12] LABS: TSH reflex Free T4 1.84 uIU/mL (0.32-4.0)
[2023-04-07 14:21] LABS: Creatinine Urine 69.71 mg/dL
== END 2023-04-07 10:21 | disposition home or self-care (01) ==
LOC: HO.HMGCLDS 10:20
PROVIDERS: PCP Nurse Practitioner Family; Visit Provider Nurse Practitioner Family
DX: E11.65 Type 2 diabetes mellitus with hyperglycemia (principal)
CPT/HCPCS: 36415; 80053; 80061; 81003; 82043; 82570; 83036; 84443; 85025

== ENCOUNTER 2023-04-09 11:09 | Outpatient (AMB) | payer OTHER, SELFPAY ==
[2023-04-09 11:20] VITALS: BMI 31.2
--- NOTE | 2023-04-09 11:20 | A.OFFVIS_ITS ---
Intake VS Expanded 04/09/23 11:20 Height 5 ft Weight 159 lb 13.362 oz BMI 31.2 Intake Visit Reasons: T2DM Allergies hydrocortisone Allergy (Verified 04/02/23 10:05) Rash HPI Nutrition Presentation Details Pt presents for MNT follow up for T2DM A1c at 8.2% (04/2023) Pt reports needing new glucometer and complains of pain in finger tips when monitoring glucose Meal pattern 11- 12 coffee with cream and diet sugar with 5 crackers and tuna fish with light jones 4-6 pm : chicken and potatoes or salad and chicken with olive oil and vinegar, water 8 pm snack on banana or yogurt Pt has questions regarding carbohydrates sources of foods food frequency fruits: 1-2/d vegetables: 3 x/wk protein : 6-8 oz/d dairy: 0-1/d starches > 15 /d fluids:water, coffee, diet soda : 32 oz/d MVI: taking Vit D DMMeds: metformin 1000 mg twice/d Lantus 40 units/d Trulicity 1.5mg/wk Most Recent Diabetes Results: Microalb/Creat Ratio 76.0 ug/mg cr (<30) H 04/07/23 Cholesterol 111 mg/dL (<200) 04/07/23 HDL Cholesterol 30 mg/dL (>40) L 04/07/23 Triglycerides 132 mg/dL (<150) 04/07/23 Creatinine 0.61 mg/dL (0.5-1.4) 04/07/23 Blood Urea Nitrogen 12 mg/dL (9-16) 04/07/23 Sodium 142 mmol/L (135-145) 04/07/23 Potassium 4.1 mmol/L (3.3-5.1) 04/07/23 Chloride 108 mmol/L (96-108) 04/07/23 Carbon Dioxide 27 mmol/L (22-29) 04/07/23 Calcium 9.5 mg/dL (8.4-10.2) 04/07/23 AST 16 U/L (5-31) 04/07/23 ALT 29 U/L (0-31) 04/07/23 Total Protein 7.1 g/dL (6.5-8.0) 04/07/23 Albumin 4.0 g/dL (3.5-5.0) 04/07/23 [facility] Medical History Cataracts, bilateral Nicotine dependence, cigarettes, uncomplicated History of endometrial cancer CAD (coronary artery disease) Vitamin D deficiency Obesity (BMI 30-39.9) Dyslipidemia [facility]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 Maternal Grandfather Unknown family medical history Paternal Grandfather Unknown family medical history Paternal Grandmother Unknown family medical history Paternal Aunt Ovarian cancer Social History Housing: House Alcohol intake: current Patient Tobacco Use Status: Current everyday Tobacco user Tobacco use type: Cigarette Cigarettes Per Day: 6 Years Smoked: (onset 30yo, 1ppd x 32yrs, now 6-7cig/day, 30pyh) e-Cigarette/Vaping Use: Never Used Second Hand Smoke Exposure: No Current occupational status: unemployed Cognitive needs: No Hearing needs: No Vision needs: No Assessment & Plan Assessment & Plan (1) Diabetic nephropathy associated with type 2 diabetes mellitus: Code(s): E11.21 - Type 2 diabetes mellitus with diabetic nephropathy Plan: Review diabetic meal planning concepts, carbohydrates sources of foods and its relationship to BG Pt will benefit from glucose sensor for self assessment, may recommend freestyle bill 3 kit. BW: 78 kg est kcal needs as per 25 kcal/kg bw: : 1950 -500 =1450 kcal/d (40% carb, 30% fat, 30% prot) est fluid needs as per 25 ml/kg bw: 1950 ml/d. Rec fiber: increase to 8-10 g per day and gradually increase to 25 g/d 35 g as tolerated Rec Na: < 1500 2000 mg /d Educate patient on: (R= Reviewed, V = verbalizes understanding N/R= Needs review N/A= not applicable) * Food sources of carbohydrates and serving adequate serving sizes : R V * Difference between complex carbohydrates and simple carbohydrates, role of fiber: R V * lean protein sources of foods: R * Differences between fats (MUFA/PUFA/saturated fats, trans fats) and food sources of various fats: R * Food sources of sodium and salt and healthy modifications for heart health and kidney health: R * How to interpret food labels: R * Healthy Plate method concept: R,V * Physical activity: benefits and precaution: R * Review chronic complications of uncontrolled diabetes : R Patient Instructions: Work on reducing your carbs at meal to 30-45g following healthy plate method Reduce on carb as snack to 15 g instead of 30 g , example 1 fruit with peanut butter instead of 2 fruits with peanut butter keep a food record and bring to your follow up Coding Level of Care Code Nutr Indiv Subseq (40102) Diagnoses Diabetic nephropathy associated with type 2 diabetes mellitus E11.21 Time Spent (min) 30
== END 2023-04-09 11:42 | disposition home or self-care (01) ==
PROVIDERS: PCP Nurse Practitioner Family; Visit Provider Dietitian, Registered
DX: E11.21 Type 2 diabetes mellitus with diabetic nephropathy (principal)

== ENCOUNTER → 2023-04-09 11:09 | Outpatient (BNVA) | payer OTHER, SELFPAY | PROVIDERS: PCP Nurse Practitioner Family; Visit Provider Dietitian, Registered | DX: E11.21 Type 2 diabetes mellitus with diabetic nephropathy (principal) | CPT/HCPCS: 97803 ==

== ENCOUNTER 2023-04-10 10:43 | Outpatient (REF) | payer OTHER, SELFPAY ==
--- NOTE | ~2023-04-10 | MM_ITS ---
EXAMINATION: MM SCREENING DIGITAL BREAST TOMOSYNTHESIS, BILATERAL CLINICAL INFORMATION: Screening. Asymptomatic. COMPARISON: Mammography: 04/07/2022, 04/05/2021, 04/09/2019, 11/23/2017 TECHNIQUE: Digital breast tomosynthesis is performed in both the craniocaudal and mediolateral oblique views along with computer-aided detection (CAD). Synthesized 2D images are generated from the tomosynthesis. FINDINGS: The breasts are heterogeneously dense, which may obscure small masses (ACR BI-RADS breast composition Category c). There are no suspicious masses, suspicious grouped calcifications, or areas of architectural distortion in either breast. The parenchymal pattern is stable from prior exams. MM/MM tomosynthesis screening BI IMPRESSION: No mammographic evidence of malignancy. ASSESSMENT: BI-RADS BI-RADS 1 - Negative RECOMMENDATION: Routine annual mammography screening. 1 year F/U This examination should not preclude the clinical evaluation of a suspicious palpable abnormality. This patient's information was entered into a reminder system with a target due date for their next mammogram.
== END 2023-04-10 10:44 | disposition home or self-care (01) ==
LOC: HO.MAMMO 10:43
PROVIDERS: PCP Nurse Practitioner Family; Visit Provider Nurse Practitioner Family
DX: Z12.31 Encounter for screening mammogram for malignant neoplasm of breast (principal)
CPT/HCPCS: 77063; 77067

== ENCOUNTER → 2023-04-10 11:45 | Outpatient (BNV) | payer OTHER, SELFPAY | PROVIDERS: PCP Nurse Practitioner Family; Visit Provider Radiology Diagnostic Radiology | DX: Z12.31 Encounter for screening mammogram for malignant neoplasm of breast (principal) | CPT/HCPCS: 77063; 77067 ==

== ENCOUNTER 2023-04-20 08:55 | Outpatient (AMB) | payer OTHER, SELFPAY ==
--- NOTE | 2023-04-20 08:59 | A.OFFVIS_ITS ---
Intake Intake Visit Reasons: ov- left knee pain Intake Note: Areli is a 62 year old female who presents today for a follow up of left knee, last injection 07/02/22. Patient reports last injection provided her some relief and is requesting to repeat injection. Finds little relief with Tylenol and Motrin. States glucose level is 104. Allergies hydrocortisone Allergy (Verified 04/20/23 09:14) Rash HPI ov- left knee pain HPI Details 62-year-old female [facility] knee pain. She had her last injection on 07/02/22 which provided her relief for about 3 months. She is interested in repeating the injection. She finds mild relief with Tylenol and Motrin. She has a history of diabetes. Her sugar level is 104 this morning. 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 Maternal Grandfather Unknown family medical history Paternal Grandfather Unknown family medical history Paternal Grandmother Unknown family medical history Paternal Aunt Ovarian cancer Housing: House Alcohol intake: current Patient Tobacco Use Status: Current everyday Tobacco user Tobacco use type: Cigarette Cigarettes Per Day: 6 Years Smoked: (onset 30yo, 1ppd x 32yrs, now 6-7cig/day, 30pyh) e-Cigarette/Vaping Use: Never Used Second Hand Smoke Exposure: No Current occupational status: unemployed Cognitive needs: No Hearing needs: No Vision needs: No Review of Systems Const All systems reviewed & are unremarkable except as noted in HPI and below Physical Exam Extrem Other: Left knee: Skin intact, no erythema or joint effusion. Tenderness along the medial and lateral joint line. Full ROM with crepitus. Negative Augustine?s. No ligamentous laxity. NVI. Office Procedures Joint Injection/Drain Joint Injection/Drain Primary Site: left knee Prep: site was prepped using aseptic technique, ethochloride spray was applied and injection warnings given Injected: 40 mg of, 80 mg of, with 8 mL of, 1% plain lidocaine and in the joint Approach Used: anterolateral Procedure: The patient tolerated the procedure well and there was some relief with the local anesthesia Coding 85007 - Glenohumeral/Tronchanteric Bursa/Intraarticular Procedure code (CPT) selection complete Assessment & Plan Assessment & Plan (1) Osteoarthritis of left knee: Code(s): M17.12 - Unilateral primary osteoarthritis, left knee Qualifiers: Osteoarthritis type: primary Qualified Code(s): M17.12 - Unilateral primary osteoarthritis, left knee Plan We discussed options today which include steroid injection. They did consent to move forward with the left knee injection, which was tolerated well. I recommended rest, ice and elevation and OTC anti-inflammatories PRN for discomfort. We also discussed their diabetes and the effect the steroid can have on their blood glucose levels; therefore, they will continue to monitor these very closely over the next 72 hours. If there are any concerns, they should report to the ED immediately. Patient Instructions: Scribed for Michaelle Block PA-C, by Matty Moore chief medical officer, on 04/20/2023 at 10:45 AM LISANDRO. Michaelle Bridges PA-C, have personally reviewed and agree with the information entered by the scribe. Coding Level of Care Code Est Pt Level 3 (49325) Diagnoses Primary osteoarthritis of left knee M17.12 Osteoarthritis type: primary CPT Codes Coding - Joint 7: 58574 - Glenohumeral/Tronchanteric Bursa/Intraarticular ([id number])
== END 2023-04-20 09:28 | disposition home or self-care (01) ==
PROVIDERS: PCP Nurse Practitioner Family; Visit Provider Physician Assistant
DX: M17.12 Unilateral primary osteoarthritis, left knee (principal)
CPT/HCPCS: 20610; 99213

== ENCOUNTER → 2023-04-20 08:55 | Outpatient (BNVA) | payer OTHER, SELFPAY | PROVIDERS: PCP Nurse Practitioner Family; Visit Provider Physician Assistant | DX: M17.12 Unilateral primary osteoarthritis, left knee (principal) | CPT/HCPCS: 20610; 99212; J1020 ==

== ENCOUNTER 2023-05-14 09:03 | Outpatient (AMB) | payer OTHER, SELFPAY ==
[2023-05-14 10:35] VITALS: BMI 33.2
--- NOTE | 2023-05-14 10:35 | MHC.AMNUTRGE ---
Intake VS Expanded 05/14/23 10:35 Height 5 ft Weight 169 lb 15.622 oz BMI 33.2 Intake Visit Reasons: 4 WEEKS/CONFIRMED Allergies hydrocortisone Allergy (Verified 04/20/23 09:14) Rash HPI Nutrition Presentation Details Pt present for MNT f/u for T2DM Pt brought her glucometer and her 14 day BG average at 128 mg/dL. Patient is monitoring in the fasting state only and fasting blood glucose ranges from 94 to 189 mg/dL. Patient reports choosing soft foods, typically starchy foods. Pt has dental screws in place but no denture snapped in place. Searches incorporating in diet: rice/pastas/mashed potatoes, root vegetables: fritters with ground beef/pork added , cereals (hot/cold) with 1% milk ,pancakes made with eggs protein foods: eggs, ground beef/pork added in fritters, beans (mixed in rice) fruits: 0-1/d dairy: in coffee , not including cheese/yogurt/ice cream vegetables: 0-1 serving/d beverages: water, diet sodas/reg soda/soup physical activity: none additional to daily life activities etoh: denies smoking: denies TXP-Mtdnuat-Dw.Jeor Equation Height 5 ft Weight 170 lb Resting Metabolic Rate 1251.88 Calculated Activity Level Sedentary Calories Needed to Maintain Weight 1502.26 Most Recent Diabetes Results: Microalb/Creat Ratio 76.0 ug/mg cr (<30) H 04/07/23 Cholesterol 111 mg/dL (<200) 04/07/23 HDL Cholesterol 30 mg/dL (>40) L 04/07/23 Triglycerides 132 mg/dL (<150) 04/07/23 Creatinine 0.61 mg/dL (0.5-1.4) 04/07/23 Blood Urea Nitrogen 12 mg/dL (9-16) 04/07/23 Sodium 142 mmol/L (135-145) 04/07/23 Potassium 4.1 mmol/L (3.3-5.1) 04/07/23 Chloride 108 mmol/L (96-108) 04/07/23 Carbon Dioxide 27 mmol/L (22-29) 04/07/23 Calcium 9.5 mg/dL (8.4-10.2) 04/07/23 AST 16 U/L (5-31) 04/07/23 ALT 29 U/L (0-31) 04/07/23 Total Protein 7.1 g/dL (6.5-8.0) 04/07/23 Albumin 4.0 g/dL (3.5-5.0) 04/07/23 [facility] Medical History Cataracts, bilateral Nicotine dependence, cigarettes, uncomplicated History of endometrial cancer CAD (coronary artery disease) Vitamin D deficiency Obesity (BMI 30-39.9) Dyslipidemia [facility] (current) use of insulin Diabetic nephropathy associated with type 2 diabetes mellitus Stable proliferative diabetic retinopathy Diabetes type 2, uncontrolled Osteoarthritis HPV (human papilloma virus) infection HTN (hypertension) Surgical History History of colonoscopy History of esophagogastroduodenoscopy (EGD) History of hysterectomy History of section History of surgery Family History Father Diabetes mellitus Myocardial infarction Mother Unknown family medical history Maternal Grandmother No problems noted. Maternal Grandfather Unknown family medical history Paternal Grandfather Unknown family medical history Paternal Grandmother Unknown family medical history Paternal Aunt Ovarian cancer Social History Housing: House Alcohol intake: current Patient Tobacco Use Status: Current everyday Tobacco user Tobacco use type: Cigarette Cigarettes Per Day: 6 Years Smoked: (onset 30yo, 1ppd x 32yrs, now 6-7cig/day, 30pyh) e-Cigarette/Vaping Use: Never Used Second Hand Smoke Exposure: No Current occupational status: unemployed Cognitive needs: No Hearing needs: No Vision needs: No Assessment & Plan Assessment & Plan (1) Diabetic nephropathy associated with type 2 diabetes mellitus: Code(s): E11.21 - Type 2 diabetes mellitus with diabetic nephropathy Plan: wt: 77 kg Est kcal needs as per MSJ: 1500- 250 = 1250 (40% carb, 30% protein/fat) Est fluid needs as per 30 ml/d: 2300 ml/d Est prot per day as per 1 g/kg bw: 77g/d Recommend fiber intake : 8-10 g per day and gradually increase to 25-28 g per day for women and 35-38 g for men or as tolerated Recommend sodium intake per day : less than 2000 mg Educated patient on: ( R = reviewed V = verbalizes understanding N/R = needs review N/A = not applicable Food sources of carbohydrate, adequate serving sizes and its role in various health conditions: R ,V Differences between complex carbohydrates a simple carbohydrates, role of fiber in diet: R ,V Differences between types of fats and role in diet (mono on saturated fat fatty acids, saturated fatty acids, trans fats): R V Food sources of sodium in salt and healthy modifications for heart health in kidney health: NR Healthy plate method concept: R V Physical activity: Benefits a precaution: R V Hypoglycemia protocol (rule of 15): V Dietary prevention of Hyperglycemia: R V monitor your blood sugar 2 hours after a meal (blood sugar goal less than 180 , 2 hours after the meal ): V Patient Instructions: Reduce on portion of starches and combine with protein foods - choose soft protein foods 2- 3 oz serving at meal (3 meals/day) (eggs, cottage cheese, fish, ground poultry/beef, protein shakes ) Drink water with meals, keep hydrated Coding Level of Care Code Nutr Indiv Subseq (54285) Diagnoses Diabetic nephropathy associated with type 2 diabetes mellitus E11.21 Time Spent (min) 30
[2023-05-19 12:06] VITALS: BMI 33.2
== END 2023-05-14 11:04 | disposition home or self-care (01) ==
PROVIDERS: PCP Nurse Practitioner Family; Visit Provider Dietitian, Registered
DX: E11.21 Type 2 diabetes mellitus with diabetic nephropathy (principal)

== ENCOUNTER → 2023-05-14 09:03 | Outpatient (BNVA) | payer OTHER, SELFPAY | PROVIDERS: PCP Nurse Practitioner Family; Visit Provider Dietitian, Registered | DX: E11.21 Type 2 diabetes mellitus with diabetic nephropathy (principal) | CPT/HCPCS: 97803 ==

== ENCOUNTER 2023-06-24 08:28 | Outpatient (AMB) | payer OTHER, SELFPAY ==
--- NOTE | 2023-06-24 08:30 | A.OFFVIS_ITS ---
Intake Vital Signs 06/24/23 08:36 Height 5 ft Weight 170 lb BMI 33.2 Intake Visit Reasons: ov- left knee Euflexxa #1 Intake Note: Areli a 63 year old female presents today for a left knee Euflexxa injection #1. Allergies hydrocortisone Allergy (Verified 06/24/23 08:36) Rash HPI ov- left knee Euflexxa #1 HPI Details 63-year-old female who returns to the [facility] today for left knee Euflexxa gel injection #1. 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 Maternal Grandfather Unknown family medical history Paternal Grandfather Unknown family medical history Paternal Grandmother Unknown family medical history Paternal Aunt Ovarian cancer Social History Housing: House Alcohol intake: current Patient Tobacco Use Status: Current everyday Tobacco user Tobacco use type: Cigarette Cigarettes Per Day: 6 Years Smoked: (onset 30yo, 1ppd x 32yrs, now 6-7cig/day, 30pyh) e-Cigarette/Vaping Use: Never Used Second Hand Smoke Exposure: No Current occupational status: unemployed Cognitive needs: No Hearing needs: No Vision needs: No Review of Systems Const All systems reviewed & are unremarkable except as noted in HPI and below Physical Exam Vital Signs: BMI result Body Mass Index 33.2 Extrem Other: Left knee: Skin intact, no erythema or joint effusion. Tenderness along the medial and lateral joint line. Full ROM with crepitus. Negative Augustine?s. No ligamentous laxity. NVI. Office Procedures Joint Injection/Drain Joint Injection/Drain Details: euflexxa left knee Primary Site: left knee Prep: site was prepped using aseptic technique, ethochloride spray was applied and injection warnings given Injected: in the joint Approach Used: anterolateral Procedure: The patient tolerated the procedure well Coding 17388 - Glenohumeral/Tronchanteric Bursa/Intraarticular Procedure code (CPT) selection complete Assessment & Plan Assessment & Plan (1) Osteoarthritis of left knee: Code(s): M17.12 - Unilateral primary osteoarthritis, left knee Qualifiers: Osteoarthritis type: primary Qualified Code(s): M17.12 - Unilateral primary osteoarthritis, left knee Plan We discussed options today which include Euflexxa gel injection. They did consent to move forward with the left knee Euflexxa gel injection #1, which was tolerated well. I recommended rest, ice and elevation and OTC anti- inflammatories PRN for discomfort. She will follow-up in 1 week for Euflexxa gel injection #2. Patient Instructions: Scribed for Michaelle Block PA-C, by Matty Moore certified medical records coder, on 06/24/2023 at 9:45 AM EST. I, Michaelle Block PA-C, have personally reviewed and agree with the information entered by the scribe. Coding Level of Care Code Procedure Only Diagnoses Primary osteoarthritis of left knee M17.12 Osteoarthritis type: primary CPT Codes Coding - Joint 7: 84564 - Glenohumeral/Tronchanteric Bursa/Intraarticular ([id number])
[2023-06-24 08:36] VITALS: BMI 33.2
== END 2023-06-24 09:17 | disposition home or self-care (01) ==
PROVIDERS: PCP Nurse Practitioner Family; Visit Provider Physician Assistant
DX: M17.12 Unilateral primary osteoarthritis, left knee (principal)
CPT/HCPCS: 20610

== ENCOUNTER → 2023-06-24 08:28 | Outpatient (BNVA) | payer OTHER, SELFPAY | PROVIDERS: PCP Nurse Practitioner Family; Visit Provider Physician Assistant | DX: M17.12 Unilateral primary osteoarthritis, left knee (principal) | CPT/HCPCS: 20610; J7323 ==

== ENCOUNTER 2023-07-01 09:03 | Outpatient (AMB) | payer OTHER, SELFPAY ==
--- NOTE | 2023-07-01 09:07 | A.OFFVIS_ITS ---
Intake Intake Visit Reasons: ov- left knee Euflexxa #2 Intake Note: Pt presents to the office today for a left knee euflexxa injection. Pt states the last injection helped a little bit with the pain. Pt states she does get occasional swelling but elevates her leg as much as she can. Allergies hydrocortisone Allergy (Verified 07/01/23 09:07) Rash HPI ov- left knee Euflexxa #2 HPI Details 63-year-old female who returns to the [facility] today for left knee Euflexxa gel injection #2. 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 Maternal Grandfather Unknown family medical history Paternal Grandfather Unknown family medical history Paternal Grandmother Unknown family medical history Paternal Aunt Ovarian cancer Social History Housing: House Alcohol intake: current Patient Tobacco Use Status: Current everyday Tobacco user Tobacco use type: Cigarette Cigarettes Per Day: 6 Years Smoked: (onset 30yo, 1ppd x 32yrs, now 6-7cig/day, 30pyh) e-Cigarette/Vaping Use: Never Used Second Hand Smoke Exposure: No Current occupational status: unemployed Cognitive needs: No Hearing needs: No Vision needs: No Review of Systems Const All systems reviewed & are unremarkable except as noted in HPI and below Physical Exam Extrem Other: Left knee: Skin intact, no erythema or joint effusion. Tenderness along the medial and lateral joint line. Full ROM with crepitus. Negative Augustine?s. No ligamentous laxity. NVI. Office Procedures Joint Injection/Drain Joint Injection/Drain Details: euflexxa left knee Primary Site: left knee Prep: site was prepped using aseptic technique, ethochloride spray was applied and injection warnings given Injected: in the joint Approach Used: anterolateral Procedure: The patient tolerated the procedure well Coding 07697 - Glenohumeral/Tronchanteric Bursa/Intraarticular Procedure code (CPT) selection complete Assessment & Plan Assessment & Plan (1) Osteoarthritis of left knee: Code(s): M17.12 - Unilateral primary osteoarthritis, left knee Qualifiers: Osteoarthritis type: primary Qualified Code(s): M17.12 - Unilateral primary osteoarthritis, left knee Plan We discussed options today which include Euflexxa gel injection. They did consent to move forward with the left knee Euflexxa gel injection #2, which was tolerated well. I recommended rest, ice and elevation and OTC anti- inflammatories PRN for discomfort.She will see us back in 1 week for Euflexxa gel injection #3. Patient Instructions: Scribed for Michaelle Block PA-C, by Matty Moore medical field representative, on 07/01/2023 at 9:30 AM EST. IMichaelle PA-C, have personally reviewed and agree with the information entered by the scribe. Coding Level of Care Code Procedure Only Diagnoses Primary osteoarthritis of left knee M17.12 Osteoarthritis type: primary CPT Codes Coding - Joint 7: 02530 - Glenohumeral/Tronchanteric Bursa/Intraarticular ([id number])
== END 2023-07-01 09:19 | disposition home or self-care (01) ==
PROVIDERS: PCP Nurse Practitioner Family; Visit Provider Physician Assistant
DX: M17.12 Unilateral primary osteoarthritis, left knee (principal)
CPT/HCPCS: 20610

== ENCOUNTER → 2023-07-01 09:03 | Outpatient (BNVA) | payer OTHER, SELFPAY | PROVIDERS: PCP Nurse Practitioner Family; Visit Provider Physician Assistant | DX: M17.12 Unilateral primary osteoarthritis, left knee (principal) | CPT/HCPCS: 20610; J7323 ==

== ENCOUNTER 2023-07-23 07:32 | Outpatient (AMB) | payer OTHER, SELFPAY ==
[2023-07-23 07:35] VITALS: BP 136/76; PULSE 81; O2SAT 97; BMI 33.4
--- NOTE | 2023-07-23 07:35 | MHC.PC.OV ---
Vital Signs 07/23/23 07:35 Height 5 ft Weight 171 lb BMI 33.4 BP 136/76 Blood Pressure Location Lt brachial Position Sitting Pulse 81 Pulse Source Pulse Oximeter Pulse Oximetry (%) 97 Oxygen Delivery Method Room Air Intake Visit Reasons: PE Intake Note: Pt is here today for PE. Allergies hydrocortisone Allergy (Verified 07/23/23 07:48) Rash Medication List - Last Reconciled 07/23/23 by Nahum Camarena, CAR [employer]- albuterol sulfate 90 mcg/actuation (Ventolin HFA) 2 puffs inhalation Q4-6H PRN 30 days Alcohol Pads (alcohol swabs) 1 pad topically; NS aspirin 81 mg PO DAILY blood sugar diagnostic (FreeStyle Lite Strips) As directed 3 times a day blood-glucose meter (FreeStyle Lite Meter kit) diabetes tid testing blood-glucose sensor (FreeStyle Kaveh 3 Sensor device) tid testing cetirizine (All Day Allergy (cetirizine)) 10 mg PO DAILY 30 days cholecalciferol (vitamin D3) (Vitamin D3) 50 mcg PO DAILY dulaglutide (Trulicity) 1.5 mg (0.5 mL) subcut QWEEK ibuprofen 800 mg PO TID PRN insulin glargine (Lantus Solostar U-100 Insulin) 40 units (0.4 mL) subcut QPM irbesartan 75 mg PO DAILY metformin 1,000 mg PO BID metoprolol succinate ER 50 mg PO DAILY omeprazole 20 mg PO BID 30 days peg-electrolyte soln 420 gram 240 mL PO Q10M pen needle, diabetic (BD Ultra-Fine Elise Pen Needle) As directed to inject insulin daily rosuvastatin 40 mg PO DAILY Tobacco use date assessed: 07/23/23 Dental Screening Dental Screen Date: 07/23/23 Did you have a dental visit in the last 12 months?: No Did you have a dental problem in the last 6 months where you did not have access to dental care?: No Was dental information given to patient?: Patient declined HPI PE HPI Details Pt is here for a PE. Will order labs. Colon screen is scheduled. Mammo is up to date. Pt is a diabetic, on an ARB and a statin. Last A1C was 8.2, due for repeat. Microalbumin is up to date. Denies polyuria, polydipsia, and neuropathy. Pt denies any signs and symptoms of hypoglycemia and does know how to correct it. She reports that her blood sugar recently was 117. Pt will be seeing endo. Pt has been referred to nephrology due to elevated microalbumin. Pt c/o left hand and wrist pain. Will order XRs. Pt has lung crackles on exam. Will order chest XR. Pt follows up with podiatry. 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 Maternal Grandfather Unknown family medical history Paternal Grandfather Unknown family medical history Paternal Grandmother Unknown family medical history Paternal Aunt Ovarian cancer Social History Housing: House Alcohol intake: current Patient Tobacco Use Status: Current everyday Tobacco user Tobacco use type: Cigarette Cigarettes Per Day: 6 Years Smoked: (onset 30yo, 1ppd x 32yrs, now 6-7cig/day, 30pyh) e-Cigarette/Vaping Use: Never Used Second Hand Smoke Exposure: No Current occupational status: unemployed Cognitive needs: No Hearing needs: No Vision needs: No Questionnaire PHQ-9 Over the last 2 weeks, how often have you been bothered by any of the following problems? 1. Little interest or pleasure in doing things: several days 2. Feeling down, depressed, or hopeless: not at all 3. Trouble falling or staying asleep, or sleeping too much: not at all 4. Feeling tired or having little energy: not at all 5. Poor appetite or overeating: not at all 6. Feeling bad about yourself - or that you are a failure or have let yourself or your family down: not at all 7. Trouble concentrating on things, such as reading the newspaper or watching television: not at all 8. Moving or speaking so slowly that other people could have noticed. Or the opposite - being so fidgety or restless that you have been moving around a lot more than usual: not at all 9. Thoughts that you would be better off or of hurting yourself in some way: not at all Total score: 1 Depression Screening Interpretation: Negative Depression Screening Done: Yes 27462 - PHQ-9 Billing: Yes Source: Developed by Drs. Bryson Roca, Siri Ray, Jay Simms and colleagues, with an educational toby from [employer]. Thrive Questionnaire Date Thrive assessed: 07/23/23 I am a: Patient What is your living situation today?: I have a steady place to live Within the past 12 months, did the food you bought not last and you didn't have the money to get more?: Never true Within the past 12 months, did you worry whether your food would run out before you got money to buy more?: Never true Do you have trouble paying for medicines?: No Do you have trouble getting transportation to medical appointments?: No Do you have trouble paying your heating and electricity bill?: No Do you have trouble taking care of your child, family member or friend?: No Do you have trouble with day-to-day activities such as bathing, preparing meals, shopping, managing finances, etc.?: No Are you currently unemployed and looking for a job?: No Are you interested in more education?: No Currently or been in a relationship where the following occur: no concerns reported THRIVE Score: 0 AUDIT C Alcohol Use Questionnaire (AUDIT-C) 1. How often do you have a drink containing alcohol?: Never 3. How often do you have six or more drinks on one occasion?: Never Total Score: 0 RUDOLPH-7 AMB Questionnaire RUDOLPH-7 Date RUDOLPH - 7 assessed: 07/23/23 Feeling nervous, anxious, or on edge: 0 = Not at all Not being able to stop or control worryin = Not at all Worrying too much about different things: 0 = Not at all Trouble relaxin = Not at all Being so restless that it is hard to sit still: 0 = Not at all Becoming easily annoyed or irritable: 0 = Not at all Feeling afraid as if something awful might happen: 0 = Not at all Total RUDOLPH-7 score (0-4 normal; 5-9 mild; 10-14 moderate; 15-21 severe): 0 Source: Developed by Drs. Bryson Roca, Siri Ray, Jay Simms and colleagues, with an educational toby from [employer]. RUDOLPH-7 Assessment Billing RUDOLPH-7 Assessment Tool: RUDOLPH-7 Assessment 57136 Review of Systems Const Denies chills and Denies fever(s) Eyes Denies blurry vision ENT Denies vertigo, Denies dizziness and Denies sore throat Card Denies chest pain at rest, Denies chest pain with activity, Denies diaphoresis, Denies dyspnea and Denies dyspnea on exertion Resp Denies cough, Denies dyspnea, Denies dyspnea on exertion and Denies wheezing GI Denies abdominal pain, Denies melena, Denies hematochezia, Denies constipation, Denies diarrhea and Denies loose stools Denies hematuria Musc Denies numbness and Denies tingling Skin/Breast Denies lesions Neuro Denies vertigo, Denies dizziness, Denies numbness and Denies tingling Psych Denies anxiety, Denies depression, Denies homicidal ideation, Denies suicidal ideation and Denies other (substance abuse) Aller/Immun Denies wheezing Physical exam (Primary Care) Vital Signs: Last Vital Signs Pulse 81 07/23/23 07:35 BP 136/76 07/23/23 07:35 Pulse Ox 97 07/23/23 07:35 Oxygen Delivery Method Room Air 07/23/23 07:35 BMI result Body Mass Index 33.4 Tobacco/Smoking Status: Tobacco use Status Tobacco use date assessed 07/23/23 07/23/23 07:38 Patient Tobacco Use Status Current everyday Tobacco 07/23/23 07:38 Tobacco use type Cigarette 07/23/23 07:38 e-Cigarette/Vaping Use Never Used 07/23/23 07:38 Depression Screening Interpretation: Negative Thrive Assessment: Date of Thrive Assessment Date Thrive assessed 07/03/22 07/23/23 07:38 Currently or been in a relationship where the following occur: no concerns reported Const General: cooperative Nutritional Appearance: obese Orientation/consciousness: patient oriented x3 HENMT Head: Yes normal to inspection, Yes normocephalic and Yes atraumatic Ears: TM's normal bilaterally Eyes General: appearance normal, both eyes and all related structures Alignment and Position: alignment normal and position normal Neck Neck: Yes normal visual inspection and Yes no lymphadenopathy Thyroid: Thyroid normal Resp Effort & Inspection: normal respiratory effort Auscultation: crackles on the right (faint) at the base and wheezes throughout Cardio Rate: regular rate Rhythm: regular rhythm Heart sounds: S1 normal heart sound present, S2 normal heart sound present and no murmurs GI Palpation (GI): Soft to palpation and nontender Auscultation: normal bowel sounds Skin Rashes: no rashes Neuro General: patient oriented x3, moves all extremities, no focal motor deficits and deep tendon reflexes 2+ bilaterally Romberg Test: Negative Extrem Other: left hand 3rd finger PIP joint slightly swollen with more distal finger deviation, bilat feet: + sensation with use of monofilament, oncyhomycosis to right big toenail, feet intact, generalized left wrist discomfort with radial and ulnar deivation, no pain with wrist flexion and extension Psych Appearance: grossly normal Mental Status: mental status grossly normal Speech and movement: Normal speech and movement present Affect: normal affect Attitude: cooperative Thought process: Normal thought process present Thought content: Normal thought content present Insight: Good insight present (Psych) Judgement: Good judgement present (Psych) Assessment and Plan Assessment & Plan (1) Diabetes type 2, uncontrolled: Code(s): E11.65 - Type 2 diabetes mellitus with hyperglycemia Plan: Labs ordered, including a1c (2) Encounter for routine adult physical exam with abnormal findings: Code(s): Z00.01 - Encounter for general adult medical examination with abnormal findings Plan: Labs ordered (3) Left hand pain: Code(s): M79.642 - Pain in left hand Plan: XR ordered (4) Left wrist pain: Code(s): M25.532 - Pain in left wrist Plan: XR ordered (5) Lung crackles: Code(s): R09.89 - Other specified symptoms and signs involving the circulatory and respiratory systems Plan: Chest XR ordered (6) Vitamin D deficiency: Code(s): E55.9 - Vitamin D deficiency, unspecified Plan: Labs ordered Plan The patient agreed to the use of a medical support specialist for this encounter. Scribed for Nahum Camarena, [facility]- by Marybeth Queen medical support specialist, on 07/23/2023 at 07:45 EST. Orders: Orders Complete Blood Count Auto Diff Today E11.65 - Type 2 diabetes mellitus with hyperglycemia, Z00.00 - Encounter for general adult medical examination without abnormal findings TSH reflex Free T4 Today E11.65 - Type 2 diabetes mellitus with hyperglycemia, Z00.00 - Encounter for general adult medical examination without abnormal findings UA CC w/rflx Micro + Cult Today E11.65 - Type 2 diabetes mellitus with hyperglycemia, Z00.00 - Encounter for general adult medical examination without abnormal findings XR hand LT 2V Today M25.532 - Pain in left wrist, M79.642 - Pain in left hand Comprehensive [place]. Panel Fast Today E11.65 - Type 2 diabetes mellitus with hyperglycemia, Z00.00 - Encounter for general adult medical examination without abnormal findings Lipid Panel Today E11.65 - Type 2 diabetes mellitus with hyperglycemia, Z00.00 - Encounter for general adult medical examination without abnormal findings XR wrist LT 2V Today M25.532 - Pain in left wrist, M79.642 - Pain in left hand XR chest 2V Today R09.89 - Other specified symptoms and signs involving the circulatory and respiratory systems XR DEXA axial skeleton Today E55.9 - Vitamin D deficiency, unspecified Vitamin D 25-OH Total Today E55.9 - Vitamin D deficiency, unspecified Medications: New prednisone 40 mg (2 x 20 mg) PO DAILY 5 days 10 tabs 0RF Refilled blood sugar diagnostic (FreeStyle Lite Strips) As directed 3 times a day 100 ea 11RF E11.65 - Type 2 diabetes mellitus with hyperglycemia cholecalciferol (vitamin D3) (Vitamin D3) 50 mcg PO DAILY 90 caps 1RF E55.9 - Vitamin D deficiency, unspecified Coding Level of Care Code Est Pt Prev Care 40-64y(22940) Diagnoses Diabetes type 2, uncontrolled E11.65 Encounter for routine adult physical exam with abnormal findings Z00.01 Left hand pain M79.642 Left wrist pain M25.532 Lung crackles R09.89 Vitamin D deficiency E55.9 Additional Codes RUDOLPH-7 Assessment Billing - RUDOLPH-7 Assessment Tool: RUDOLPH-7 Assessment 59301 ([id number])
== END 2023-07-23 08:13 | disposition home or self-care (01) ==
PROVIDERS: Visit Provider Nurse Practitioner Family
DX: Z00.01 Encounter for general adult medical examination with abnormal findings (principal); E11.65 Type 2 diabetes mellitus with hyperglycemia; M79.642 Pain in left hand; M25.532 Pain in left wrist; R09.89 Other specified symptoms and signs involving the circulatory and respiratory systems; E55.9 Vitamin D deficiency, unspecified
CPT/HCPCS: 99214; 99396

== ENCOUNTER 2023-07-23 08:16 | Outpatient (REF) | payer OTHER, SELFPAY ==
--- NOTE | ~2023-07-23 | XR_ITS ---
EXAMINATION: XR CHEST CLINICAL INFORMATION: Other specified symptoms and signs involving the circulatory system. COMPARISON: Chest x-ray March 01, 2018 TECHNIQUE: 2 views of the chest were obtained. FINDINGS: Cardiac silhouette is normal in size. The lungs are well aerated. There is no lobar consolidation. No pleural effusion or pneumothorax. Mild degenerative changes of the spine. XR/XR chest 2V IMPRESSION: No acute pulmonary pathology.
--- NOTE | ~2023-07-23 | XR_ITS ---
EXAMINATION: XR HAND/WRIST, LEFT CLINICAL INFORMATION: Pain. COMPARISON: Radiographs dated 09/12/2015. TECHNIQUE: PA, lateral, and oblique views of the left hand and wrist. FINDINGS: Bony alignment and mineralization are normal. There is a neutral ulnar variance. There is very mild osteoarthritic change of the interphalangeal joint of the thumb. There is mild osteoarthritic change of the second and fourth distal interphalangeal joints, and there is moderate osteoarthritic change of the third and fifth distal interphalangeal joints. There is mild osteoarthritic change of the first carpometacarpal joint. No fracture or dislocation is seen. The proximal and distal carpal rows are intact. No focal soft tissue swelling, gas or foreign body is seen. XR/XR hand wrist LT IMPRESSION: There are multi-focal osteolytic changes of the left hand and wrist, as detailed. No fracture or dislocation is seen. There is no abnormal bone erosion.
[2023-07-23 11:18] LABS: MANUAL DIFF FLAG NO
[2023-07-23 11:31] LABS: Basophils Percent Auto 0.2 % (0-2); Eosinophils Absolute Auto 0.2 X10*3/uL (0.0-0.4); Eosinophils Percent Auto 3.8 % (0-4); Hemoglobin 11.7 g/dl (12.0-16.0); Imm Gran Abs Auto 0.01 X10*3/uL (0.00-0.03); Imm Gran Pct Auto 0.2 % (0.0-0.4); Lymphocytes Absolute Auto 2.1 X10*3/uL (1.2-4.9); Lymphocytes Percent Auto 50.1 % (20-40); Mean Corpuscular HGB Conc 30.8 g/dl (31.0-35.0); Mean Corpuscular Hemoglobin 25.6 pg (27.0-33.0); Mean Corpuscular Volume 83.2 fL (80.0-98.0); Mean Platelet Volume 12.6 fL (9.4-12.3); Monocytes Absolute Auto 0.4 X10*3/uL (0.1-1.2); Monocytes Percent Auto 8.5 % (2-11); Neutrophils Absolute Auto 1.6 x10*3/uL (2.0-8.3); Neutrophils Percent Auto 37.2 % (45-73); Platelet Count 151 X10*3/uL (160-400); Red Blood Count 4.57 X10*6/uL (4.20-5.50); Red Cell Distribution Width 14.5 % (11.0-16.0); White Blood Count 4.2 X10*3/uL (4.8-10.8)
[2023-07-23 11:38] LABS: Appearance Urine Clear; Color Urine Yellow; Glucose Urine UA Negative (Negative); Leukocyte Esterase Urine Negative (Negative); Nitrite Urine Negative (Negative); Specific Gravity - Urine >= 1.030 (1.005-1.025); UMIC TRIGGER UACC YES; Urine Blood Negative (Negative); Urine Ketones Trace mg/dL (Negative); Urine Protein 30 (1+) mg/dL (Neg-Trace)
[2023-07-23 11:44] LABS: Bacteria Urine Trace (None Seen); Hyaline Casts Urine 0-2 /LPF (0-2); RBC Urine 0-2 /HPF (0-2); WBC Urine 0-5 /HPF (0-5)
[2023-07-23 11:55] LABS: Alanine Aminotransferase 26 U/L (0-31); Alkaline Phosphatase 75 U/L (39-117); Anion Gap 11 (12-20); Aspartate Amino Transferase 14 U/L (5-31); Bilirubin Total 0.3 mg/dL (0.0-1.0); Blood Urea Nitrogen 17 mg/dL (9-16); Calcium 8.9 mg/dL (8.4-10.2); Carbon Dioxide 25 mmol/L (22-29); Chloride 108 mmol/L (96-108); Cholesterol 115 mg/dL (<200); Estimated Glomerular Filt Rate > 60; Glucose Fasting 111 mg/dL (60-99); HDL Cholesterol 28 mg/dL (>40); LDL Cholesterol Calculated 60 mg/dL (<100); Potassium 3.8 mmol/L (3.3-5.1); Sodium 140 mmol/L (135-145); Total Protein 6.8 g/dL (6.5-8.0); Triglycerides 139 mg/dL (<150)
[2023-07-23 12:12] LABS: TSH reflex Free T4 2.67 uIU/mL (0.32-4.0); Vitamin D 25-OH Total 44.5 ng/mL (>30)
== END 2023-07-23 08:17 | disposition home or self-care (01) ==
LOC: HO.HMGCX 08:16
PROVIDERS: PCP Nurse Practitioner Family; Visit Provider Nurse Practitioner Family
DX: Z00.00 Encounter for general adult medical examination without abnormal findings (principal); E11.65 Type 2 diabetes mellitus with hyperglycemia; E55.9 Vitamin D deficiency, unspecified; R09.89 Other specified symptoms and signs involving the circulatory and respiratory systems; M25.532 Pain in left wrist; M79.642 Pain in left hand; D64.9 Anemia, unspecified
CPT/HCPCS: 36415; 71046; 73110; 73130; 80053; 80061; 81001; 82306; 84443; 85025

== ENCOUNTER 2023-07-27 11:46 | Outpatient (AMB) | payer OTHER, SELFPAY ==
[2023-07-27 11:59] VITALS: BMI 33.4
--- NOTE | 2023-07-27 11:59 | A.OFFVIS_ITS ---
Intake Vital Signs 07/27/23 11:59 Height 5 ft Weight 171 lb BMI 33.4 Intake Visit Reasons: ov- Left knee Euflexxa injection #3 Intake Note: Areli a 63 year old female presents today for bilateral knee Euflexxa injection #3. Allergies hydrocortisone Allergy (Verified 07/27/23 11:59) Rash HPI ov- Left knee Euflexxa injection #3 HPI Details 63-year-old female who returns to the [facility] today for left knee Euflexxa gel injection #3. 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 Maternal Grandfather Unknown family medical history Paternal Grandfather Unknown family medical history Paternal Grandmother Unknown family medical history Paternal Aunt Ovarian cancer Social History Housing: House Alcohol intake: current Patient Tobacco Use Status: Current everyday Tobacco user Tobacco use type: Cigarette Cigarettes Per Day: 6 Years Smoked: (onset 30yo, 1ppd x 32yrs, now 6-7cig/day, 30pyh) e-Cigarette/Vaping Use: Never Used Second Hand Smoke Exposure: No Current occupational status: unemployed Cognitive needs: No Hearing needs: No Vision needs: No Review of Systems Const All systems reviewed & are unremarkable except as noted in HPI and below Physical Exam Vital Signs: BMI result Body Mass Index 33.4 Extrem Other: Left knee: Skin intact, no erythema or joint effusion. Tenderness along the medial and lateral joint line. Full ROM with crepitus. Negative Augustine?s. No ligamentous laxity. NVI. Office Procedures Joint Injection/Drain Joint Injection/Drain Details: left knee euflexxa Primary Site: left knee Prep: site was prepped using aseptic technique, ethochloride spray was applied and injection warnings given Injected: in the joint Approach Used: anterolateral Procedure: The patient tolerated the procedure well and there was some relief with the local anesthesia Coding 20289 - Glenohumeral/Tronchanteric Bursa/Intraarticular Procedure code (CPT) selection complete Assessment & Plan Assessment & Plan (1) Osteoarthritis of left knee: Code(s): M17.12 - Unilateral primary osteoarthritis, left knee Qualifiers: Osteoarthritis type: primary Qualified Code(s): M17.12 - Unilateral primary osteoarthritis, left knee Plan We discussed options today which include Euflexxa gel injection. They did consent to move forward with the left knee Euflexxa gel injection #3, which was tolerated well. I recommended rest, ice and elevation and OTC anti- inflammatories PRN for discomfort. If symptoms persist or worsens over the next 6-8 weeks, patient will contact the office, otherwise follow-up as needed. Patient Instructions: Scribed for Michaelle Block PA-C, by Matty Moore medical appointment clerk, on 07/27/2023 at 12:45 PM EST. I, Michaelle Block PA-C, have personally reviewed and agree with the information entered by the scribe. Coding Level of Care Code Procedure Only Diagnoses Primary osteoarthritis of left knee M17.12 Osteoarthritis type: primary CPT Codes Coding - Joint 7: 74768 - Glenohumeral/Tronchanteric Bursa/Intraarticular ([id number])
== END 2023-07-27 13:01 | disposition home or self-care (01) ==
PROVIDERS: PCP Nurse Practitioner Family; Visit Provider Physician Assistant
DX: M17.12 Unilateral primary osteoarthritis, left knee (principal)
CPT/HCPCS: 20610

== ENCOUNTER → 2023-07-27 11:46 | Outpatient (BNVA) | payer OTHER, SELFPAY | PROVIDERS: PCP Nurse Practitioner Family; Visit Provider Physician Assistant | DX: M17.12 Unilateral primary osteoarthritis, left knee (principal) | CPT/HCPCS: 20610; J7323 ==

== ENCOUNTER 2023-08-11 10:42 | Outpatient (REF) | payer OTHER, SELFPAY ==
--- NOTE | ~2023-08-11 | MM_ITS ---
EXAMINATION: BONE DENSITOMETRY CLINICAL INDICATION: Vitamin D deficiency, unspecified. COMPARISON: This is the patient's baseline examination. TECHNIQUE: Using a [employer] DXA System (software version: 13.1) manufactured by [employer], dual-energy x-ray absorptiometry was performed of the lumbar spine and right hip. The images are of good technical quality. Summary results are attached. FINDINGS: RIGHT FEMUR, NECK: BMD 1.035 g/cm2, Z-score 1.1, T-score 0.0, normal. RIGHT FEMUR, TOTAL: BMD 1.095 g/cm2, Z-score 1.5, T-score 0.7, normal. AP SPINE L1-L4: BMD 1.215 g/cm2, Z-score 1.1, T-score 0.3, normal. IDENTIFIED RISK FACTORS: Early menopause, bilateral oophorectomy, osteoporosis, secondary osteoporosis, tobacco use (current smoker). HISTORY OF FRACTURE: None listed. MEDICATIONS: Vitamin D. MM/XR DEXA axial skeleton IMPRESSION: 1. DIAGNOSIS: Normal bone density based on the lowest T-score value of 0.0 in the femoral neck applying World Health Organization criteria. 2. 10-YEAR FRACTURE RISK PREDICTION, FRAX: According to the guidelines, FRAX calculation should only be performed on patients in the osteopenia bone density category. Therefore, FRAX was not performed on this patient. 3. Treatment Recommendations: NOF guidelines recommend consideration for treatment in postmenopausal women and men age 50 and older presenting with the following: -A hip or vertebral (clinical or morphometric) fracture. -T-score less than or equal to -2.5 at the femoral neck or spine after appropriate evaluation to exclude secondary causes. -Low bone mass at the hip or spine and a 10-year fracture probability by FRAX of greater than or equal to 3% for hip fracture or greater than or equal to 20% for major osteoporotic fracture based on the [place] adapted WHO algorithm. 4. Other Recommendations: All treatment decisions require clinical judgment and consideration of individual patient factors, including patient preferences, comorbidities, previous drug use, risk factors not captured in the FRAX model (e.g. frailty, falls, vitamin D deficiency, increased bone turnover, interval significant decline in bone density) and possible under or overestimation of fracture risk by FRAX. FUTURE SCAN RECOMMENDATION: People with diagnosed cases of osteoporosis or at high risk for fracture should have regular bone mineral density tests. For patients eligible for Medicare, routine testing is allowed once every 2 years. The testing frequency can be increased to one year for patients who have rapidly progressing disease, those who are receiving or discontinuing medical therapy to restore bone mass, or have additional risk factors.
== END 2023-08-11 10:43 | disposition home or self-care (01) ==
LOC: HO.MAMMO 10:42
PROVIDERS: PCP Nurse Practitioner Family; Visit Provider Nurse Practitioner Family
DX: Z13.820 Encounter for screening for osteoporosis (principal); Z78.0 Asymptomatic menopausal state; E55.9 Vitamin D deficiency, unspecified
CPT/HCPCS: 77080

== ENCOUNTER 2023-08-13 06:15 | Day surgery (SDC) | payer OTHER, SELFPAY ==
[2023-06-23 15:17] VITALS: BMI 32.6
[2023-08-13 06:59] VITALS: BP 147/73; PULSE 77; TEMP 36.2; O2SAT 96; BMI 33.2
[2023-08-13 07:11] LABS: Glucose, Whole Blood 125 mg/dL (60-115)
[2023-08-13] MEDS: Lactated Ringers 1,000 ML 50 ML IVCONT (07:49)
--- NOTE | 2023-08-13 08:11 | P.HPSUR_ITS ---
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 Migraines Obesity (BMI 30-39.9) Osteo) History of Previous Operations: Relevant previous surgery/procedure and date(s) ( H/O colonoscopy History of section History of hysterectomy History of surgery) Allergies: Allergies Allergy/AdvReac Type Severity Reaction Status Date / Time hydrocortisone Allergy Rash Verified 07/27/23 11:59 Review of Systems Sugical H&P ROS: Negative: Constitution, Cardiovascular, Respiratory, Neurological, Psychiatric, Hem-Onc, Allergic/Immunologic, Gastrointestinal, Genitourinary, Musculoskeletal, Integumentary, Endocrine and Eyes/Ears/Nose/Throat Exam Surgical H&P Exam: Normal: HEENT, Normal: Heart, Normal: Lungs, Normal: Extremities, Normal: Abdomen, Normal: Skin and Normal: Neurological Plan Diagnosis/Plan: Unchanged I have reviewed the history and physical and performed a pertinent physical examination on my patient. No changes have occurred unless specified. Time Spent With Patient Time: Total time managing care of this patient today ____ minutes.
--- NOTE | 2023-08-13 08:12 | P.OP_ITS ---
Operative Note Operative Note Date of Service: 08/13/23 Narrative: Operative Information Procedure Description: Colonoscopy Indication: screening Anesthesia: MAC COLONOSCOPY Instrument: Olympus variable stiffness pediatric scope 190L Colonoscopy Monitoring: Vital signs and clinical assessment, continuous EKG monitoring, Pulse oximetry, Carbon Dioxide monitoring and blood pressure monitoring were done throughout the procedure. Colon withdrawal time was 8 minutes. Procedure: The patient was placed in the left lateral decubitis position and pre-procedure medications were administered. After a digital rectal examination of the ano-rectum, the video colonoscope was inserted into the rectum and advanced through the colon to the cecum/TI. The colonoscope was slowly withdrawn in a retrograde panoramic fashion and the colon mucosa was carefully examined including a retroflexed view of the rectum. Findings and interventions are described below. Procedure Difficulty: easy Findings: Terminal Ileum-normal Cecum:normal Ascending Colon: normal Transverse Colon -normal Descending Colon:normal Sigmoid Colon: normal Rectum: Retroflexion with small internal hemorrhoids seen, grade I Anorectum - normal Intervention: none Colon preparation: [place] Bowel Preparation Scale Right colon; 2 Transverse colon: 2 Left colon; 2 (0 = Unprepared colon segment with mucosa not seen due to solid stool that cannot be cleared. 1 = Portion of mucosa of the colon segment seen, but other areas of the colon segment not well seen due to staining, residual stool and/or opaque liquid. 2 = Minor amount of residual staining, small fragments of stool and/or opaque liquid, but mucosa of colon segment seen well. 3 = Entire mucosa of colon segment seen well with no residual staining, small fragments of stool or opaque liquid) Impression and Post Procedure Diagnosis: internal hemorrhoids Plan: High fiber diet leaflet Avoid straining at stool, epsom salts and sitz bath, anusol supps or cream Repeat Colonoscopy in 10 years or earlier if clinically indicated Above findings were reviewed with the patient and relevant handouts were provided if indicated.
--- NOTE | 2023-08-13 08:16 | HO.ANESPROP2 ---
HPI - Anesthesia Eval Consult details Narrative: 63 yo female patient for Colonoscopy Anesthesia Pre-Procedure Meds Is the patient on any of the following meds?: Dulaglutide (Trulicity) (Last dose 2 weeks ago) If Yes to any meds - educate patient: Pt education - increased risk of aspiration PMFSH Active Problems Active Problems: All Active Problems (Updated 08/13/23 @ 08:17 by Alissa Whalen MD) Hand arthritis (Acute) Arthritis, wrist (Acute) Anemia (Acute) Lung crackles (Acute) Left hand pain (Acute) Left wrist pain (Acute) Encounter for routine adult physical exam with abnormal findings (Acute) Physical exam (Acute) Tendinitis of right rotator cuff (Acute) Osteoarthritis of right acromioclavicular joint (Acute) Sprain of cervical neck (Acute) Postmenopausal (Acute) CAD (coronary artery disease) (Acute) HTN (hypertension) (Acute) Dyslipidemia (Acute) Diabetes type 2, uncontrolled (Acute) Diabetic nephropathy associated with type 2 diabetes mellitus (Acute) 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 (Acute) Stable proliferative diabetic retinopathy (Acute) Nicotine dependence, cigarettes, uncomplicated (Acute) History of endometrial cancer (Acute) Chronic GERD (Acute) Goiter (Acute) Microalbuminuria (Acute) Leukopenia (Acute) Osteoarthritis of left knee (Acute) Migraines (Acute) Vitamin D deficiency (Acute) Obesity (BMI 30-39.9) (Acute) Past Medical History Medical History Cataracts, bilateral Nicotine dependence, cigarettes, uncomplicated History of endometrial cancer CAD (coronary artery disease) Vitamin D deficiency Obesity (BMI 30-39.9) 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 Maternal Grandfather Unknown family medical history Paternal Grandfather Unknown family medical history Paternal Grandmother Unknown family medical history Paternal Aunt Ovarian cancer Family history of problems with anesthesia: No Surgical History Surgical History History of colonoscopy History of esophagogastroduodenoscopy (EGD) History of hysterectomy History of section History of surgery History of Problems with Anesthesia: No Social History Social History Housing: House Alcohol intake: current Patient Tobacco Use Status: Current everyday Tobacco user Tobacco use type: Cigarette Cigarettes Per Day: 2 Years Smoked: (onset 30yo, 1ppd x 32yrs, now 6-7cig/day, 30pyh) e-Cigarette/Vaping Use: Never Used Second Hand Smoke Exposure: No Current occupational status: unemployed Cognitive needs: No Hearing needs: No Vision needs: No Meds Allergies Allergy/AdvReac Type Severity Reaction Status Date / Time hydrocortisone Allergy Rash Verified 07/27/23 11:59 Active Medications: Current Medications Lactated Ringer's (Lr) 1,000 mls @ 50 mls/hr IVCONT .Q20H [place] Last Admin: 08/13/23 07:49 Dose: 50 mls/hr Home Medications Medication Instructions Recorded Confirmed Last Taken Type peg-electrolyte solution 420 gram 240 ml PO Q10M 09/11/22 08/13/23 Unknown History oral solution Exam Height,Weight and Vital Signs: Height 5 ft Weight 77.111 kg Last Vital Signs Temp 97.2 F 08/13/23 06:59 Pulse 77 08/13/23 06:59 BP 147/73 H 08/13/23 06:59 Pulse Ox 96 08/13/23 06:59 O2 Del Method Room Air 08/13/23 06:59 Pertinent Lab Results Pertinent Lab Results: Laboratory Tests 08/13/23 06:58 POC Glucose 125 H Airway Mallampati Class: II TM Dist: >3cm Neck ROM: Full Loose/Missing/Broken Teeth: Yes (Edentulous. Posts in place but teeth not in) Heart: RRR Lungs: CTAB Assessment and Plan Assessment Anesthesia Assessment: Anesthesia Plan Discussed and Chart Reviewed Final Anesthetic Review Family History of Problems with Anesthesia: No History of Problems with Anesthesia: No NPO: Yes ASA Class: III Final Preanesthetic Review: No Changes in Pt Med Stat, Meds/Allgs Chart Reviewed, Consent Obtained/Reviewed and Anes Risks/Benef Reviewed Patient Risk: Intermediate Procedure Risk: Low Assessment/Block/Sedation in SS: Assess/Block/Sedation-SS Anesthetic Plan Anesthetic Plan: MAC: and TIVA Disposition: Standard PACU
[2023-08-13 08:50] VITALS: BP 104/53; PULSE 73; RESP 16; TEMP 36.1; O2SAT 98
[2023-08-13 09:05] VITALS: BP 151/58; PULSE 83; RESP 18; TEMP 36.1; O2SAT 98
== END 2023-08-13 09:28 | disposition home or self-care (01) ==
PROVIDERS: PCP Nurse Practitioner Family; Visit Provider Internal Medicine Gastroenterology
PROC: 0DJD8ZZ Inspection of Lower Intestinal Tract, Via Natural or Artificial Opening Endoscopic (ICD-10-PCS; CPT 45378; principal; 2023-08-13 08:30)
DX: Z12.11 Encounter for screening for malignant neoplasm of colon (principal); K64.0 First degree hemorrhoids; I10 Essential (primary) hypertension; E78.5 Hyperlipidemia, unspecified; I25.10 Atherosclerotic heart disease of native coronary artery without angina pectoris; E55.9 Vitamin D deficiency, unspecified; E11.21 Type 2 diabetes mellitus with diabetic nephropathy; E11.3599 Type 2 diabetes mellitus with proliferative diabetic retinopathy without macular edema, unspecified eye; Z85.42 Personal history of malignant neoplasm of other parts of uterus; Z90.710 Acquired absence of both cervix and uterus; Z79.4 Long term (current) use of insulin; Z79.85 Long-term (current) use of injectable non-insulin antidiabetic drugs; Z79.899 Other long term (current) drug therapy; Z88.8 Allergy status to other drugs, medicaments and biological substances; F17.210 Nicotine dependence, cigarettes, uncomplicated; Z98.890 Other specified postprocedural states
CPT/HCPCS: G0121; 82947; J2704

== ENCOUNTER → 2023-08-13 06:15 | Outpatient (BNV) | payer OTHER, SELFPAY | PROVIDERS: PCP Nurse Practitioner Family; Visit Provider Internal Medicine Gastroenterology | DX: Z12.11 Encounter for screening for malignant neoplasm of colon (principal); K64.0 First degree hemorrhoids | CPT/HCPCS: G0121 ==

== ENCOUNTER 2023-08-17 12:58 | Outpatient (AMB) | payer OTHER, SELFPAY ==
--- NOTE | 2023-08-17 13:08 | A.OFFVIS_ITS ---
Intake VS Expanded 08/17/23 13:09 Height 5 ft Weight 170 lb 13.732 oz BMI 33.4 Intake Visit Reasons: T1DM Allergies hydrocortisone Allergy (Verified 07/27/23 11:59) Rash HPI Nutrition Presentation Details Pt presents for MNT for T2M Pt did not bring glucometer to this appt, Pt reports her bg in the fasting state ranges from 100-140 mg/dl , not monitoring after meals. food frequency fruit: 1-2/d fish: 0-2x/m ve-1x/wk- reports often times going to waste milk: cheese mostly fried foods: using air fryer fluids: water 16 oz/d, coffee 1 x/d, seldom soda reg physical activity: daily life activities smoking: denies etoh: denies RAW-Nyyatrj-Jc.Jeor Equation Height 5 ft Weight 171 lb Resting Metabolic Rate 1256.41 Calculated Activity Level Sedentary Calories Needed to Maintain Weight 1507.69 Diagnosis Nutrition problem #1 overweight/obesity As related to (etiology) #1 diagnosis As evidenced by (sign/symptom) #1 high BMI (33.4 on 07/2023) Most Recent Diabetes Results: Cholesterol 115 mg/dL (<200) 07/23/23 HDL Cholesterol 28 mg/dL (>40) L 07/23/23 Triglycerides 139 mg/dL (<150) 07/23/23 Creatinine 0.64 mg/dL (0.5-1.4) 07/23/23 Blood Urea Nitrogen 17 mg/dL (9-16) H 07/23/23 Sodium 140 mmol/L (135-145) 07/23/23 Potassium 3.8 mmol/L (3.3-5.1) 07/23/23 Chloride 108 mmol/L (96-108) 07/23/23 Carbon Dioxide 25 mmol/L (22-29) 07/23/23 Calcium 8.9 mg/dL (8.4-10.2) 07/23/23 AST 14 U/L (5-31) 07/23/23 ALT 26 U/L (0-31) 07/23/23 Total Protein 6.8 g/dL (6.5-8.0) 07/23/23 Albumin 4.0 g/dL (3.5-5.0) 07/23/23 [facility] Medical History Cataracts, bilateral Nicotine dependence, cigarettes, uncomplicated History of endometrial cancer CAD (coronary artery disease) Vitamin D deficiency Obesity (BMI 30-39.9) Dyslipidemia 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 Maternal Grandfather Unknown family medical history Paternal Grandfather Unknown family medical history Paternal Grandmother Unknown family medical history Paternal Aunt Ovarian cancer Social History Housing: House Alcohol intake: current Patient Tobacco Use Status: Current everyday Tobacco user Tobacco use type: Cigarette Cigarettes Per Day: 2 Years Smoked: (onset 30yo, 1ppd x 32yrs, now 6-7cig/day, 30pyh) e-Cigarette/Vaping Use: Never Used Second Hand Smoke Exposure: No Current occupational status: unemployed Cognitive needs: No Hearing needs: No Vision needs: No Assessment & Plan Assessment & Plan (1) Diabetic nephropathy associated with type 2 diabetes mellitus: Code(s): E11.21 - Type 2 diabetes mellitus with diabetic nephropathy Plan: wt: 77 kg (07/2023) Est kcal needs as per MSJ: 1500- (40% carb, 30% protein/fat) Est fluid needs as per 30 ml/d: 2300 ml/d Est prot per day as per 1 g/kg bw: 77g/d Recommend fiber intake : 8-10 g per day and gradually increase to 25-28 g per day for women and 35-38 g for men or as tolerated Recommend sodium intake per day : less than 2000 mg Educated patient on: ( R = reviewed V = verbalizes understanding N/R = needs review N/A = not applicable * Food sources of carbohydrate, adequate serving sizes and its role in various health conditions: R ,V * Differences between complex carbohydrates a simple carbohydrates, role of fiber in diet: R ,V * Differences between types of fats and role in diet (mono on saturated fat fatty acids, saturated fatty acids, trans fats): R V * Food sources of sodium in salt and healthy modifications for heart health in kidney health: R * Healthy plate method concept: R V * Physical activity: Benefits a precaution: R V * Hypoglycemia protocol (rule of 15): V * Dietary prevention of Hyperglycemia: R V * monitor your blood sugar 2 hours after a meal (blood sugar goal less than 180 , 2 hours after the meal ): V Patient Instructions: Reduce foods high in salt (pastries/chips/highly processed foods - sausages/bologna and similar) Have salad ( spinach, peppers, cucumbers, carrots, Kale, asparagus beets , at lunch 4 times a week with 3-4 oz lean protein, with applecider vinegar and olive oil monitor your blood sugar fasting and 2 hours after a meal - ADA goal 80-130 in the fasting schwarz and 2 hours after eating 80-180, unless otherwise specified by your Dr., discuss results with your doctor Coding Level of Care Code Nutr Indiv Subseq (26712) Diagnoses Diabetic nephropathy associated with type 2 diabetes mellitus E11.21 Time Spent (min) 30
[2023-08-17 13:09] VITALS: BMI 33.4
[2023-08-19 09:12] VITALS: BMI 33.4
== END 2023-08-17 13:43 | disposition home or self-care (01) ==
PROVIDERS: PCP Nurse Practitioner Family; Visit Provider Dietitian, Registered
DX: E11.21 Type 2 diabetes mellitus with diabetic nephropathy (principal)

== ENCOUNTER → 2023-08-17 12:58 | Outpatient (BNVA) | payer OTHER, SELFPAY | PROVIDERS: PCP Nurse Practitioner Family; Visit Provider Dietitian, Registered | DX: E11.21 Type 2 diabetes mellitus with diabetic nephropathy (principal); I10 Essential (primary) hypertension | CPT/HCPCS: 97803 ==

== ENCOUNTER 2023-08-24 09:32 | Outpatient (AMB) | payer OTHER, SELFPAY ==
[2023-08-24 11:08] VITALS: BP 138/62; PULSE 82; TEMP 36.4; O2SAT 98; BMI 33.1
--- NOTE | 2023-08-24 11:08 | AM.OFFWIN_ITS ---
Intake Vital Signs 08/24/23 11:08 Height 5 ft Weight 169 lb 4 oz BMI 33.1 BP 138/62 Blood Pressure Location Lt brachial Position Sitting Pulse 82 Pulse Source Pulse Oximeter Temp 97.6 F Temp Source Oral Pulse Oximetry (%) 98 Oxygen Delivery Method Room Air Intake Visit Reasons: EP Back Spasm, LT hand swelling Intake Note: Pt presents to the office today for back spasms and left hand swelling. Pt states she has been having left hand sweeling for the past 2 weeks with no known injury and she states her back spasms started in her lower back a few days ago. She states she did have a colnoscopy on 08/20/23 and isnt sure if that has been causing her back spasms since she hasnt had a bowel movement since then. Patient Tobacco Use Status: Current everyday Tobacco user Allergies hydrocortisone Allergy (Verified 08/24/23 11:13) Rash HPI HPI Comments History of Present Illness Details Patient presents to the walk-in today for sick visit Reports 2 days of bilateral lower back pain, denies inciting injury or trauma Pain worse with movement bending, twisting Denies symptoms PFSH Medical History Cataracts, bilateral Nicotine dependence, cigarettes, uncomplicated History of endometrial cancer CAD (coronary artery disease) Vitamin D deficiency Obesity (BMI 30-39.9) Dyslipidemia FCI (current) use of insulin Diabetic nephropathy associated with type 2 diabetes mellitus Stable proliferative diabetic retinopathy Diabetes type 2, uncontrolled Osteoarthritis HPV (human papilloma virus) infection HTN (hypertension) Surgical History History of colonoscopy History of esophagogastroduodenoscopy (EGD) History of hysterectomy History of section History of surgery Family History Father Diabetes mellitus Myocardial infarction Mother Unknown family medical history Maternal Grandmother No problems noted. Maternal Grandfather Unknown family medical history Paternal Grandfather Unknown family medical history Paternal Grandmother Unknown family medical history Paternal Aunt Ovarian cancer Social History Housing: House Alcohol intake: current Patient Tobacco Use Status: Current everyday Tobacco user Tobacco use type: Cigarette Cigarettes Per Day: 2 Years Smoked: (onset 30yo, 1ppd x 32yrs, now 6-7cig/day, 30pyh) e-Cigarette/Vaping Use: Never Used Second Hand Smoke Exposure: No Current occupational status: unemployed Cognitive needs: No Hearing needs: No Vision needs: No Review of Systems Const All systems reviewed & are unremarkable except as noted in HPI and below Physical Exam Vital Signs: Last Vital Signs Temp 97.6 F 08/24/23 11:08 Pulse 82 08/24/23 11:08 BP 138/62 08/24/23 11:08 Pulse Ox 98 08/24/23 11:08 Oxygen Delivery Method Room Air 08/24/23 11:08 BMI result Body Mass Index 33.1 General: awake, alert, oriented. Answers questions appropriately. Fully engaged in examination. Skin: warm, dry, intact HEENT: Normocephalic. Hearing intact. Cardiac: External chest normal in appearance. Respiratory: No cough, audible wheezing or stridor. Abdomen: without gross distension. MS: No obvious swelling or deformities. Able to transition from sit to stand unassisted. Ambulates with bilaterally normal heel strike and toe off Facet loading positive Tenderness to palpation bilateral lumbar musculature Decreased range of motion with reported pain increase SLR negative bilaterally Neurological: Oriented to person, place, time and situation. Thought process intact. Psychiatric: Appropriate mood and affect. Good judgment and insight. Results Reviewed Results Reviewed: X-ray lumbar spine independently reviewed: Negative for fracture. (patient with known left hip fusion performed at the age of 77 years old) Assessment & Plan Assessment & Plan (1) Strain of lumbar paraspinal muscle: Code(s): S39.012A - Strain of muscle, fascia and tendon of lower back, initial encounter (2) Lumbar spondylosis: Code(s): M47.816 - Spondylosis without myelopathy or radiculopathy, lumbar region Plan X-ray lumbar spine independently reviewed, negative for fracture History, physical exam and provocative testing consistent with lumbar muscle strain and lumbar spondylosis Ibuprofen 600 mg p.o. q.8 hours as needed Cyclobenzaprine 5 mg p.o. 3 times daily as needed, patient advised on cautions for use Follow up with primary care doctor or return to the walk-in for any new or worse madai symptoms All questions and concerns were answered, patient agrees with the plan Orders: Orders XR lumbar spine 4V min Today M54.9 - Dorsalgia, unspecified Medications: New ibuprofen 600 mg PO Q8H PRN 45 tabs 0RF pain cyclobenzaprine 5 mg PO TID PRN 30 tabs 0RF muscle spasm Coding Level of Care Code Est Pt Level 3 (20228) Diagnoses Strain of lumbar paraspinal muscle S39.012A Lumbar spondylosis M47.816
== END 2023-08-24 14:56 | disposition home or self-care (01) ==
PROVIDERS: PCP Nurse Practitioner Family; Visit Provider Registered Nurse Emergency
DX: S39.012A Strain of muscle, fascia and tendon of lower back, initial encounter (principal); M47.816 Spondylosis without myelopathy or radiculopathy, lumbar region
CPT/HCPCS: 99213

== ENCOUNTER 2023-08-24 12:26 | Outpatient (REF) | payer OTHER, SELFPAY ==
--- NOTE | ~2023-08-24 | XR_ITS ---
EXAMINATION: XR LUMBOSACRAL SPINE WITH OBLIQUES CLINICAL INFORMATION: Back pain. COMPARISON: CT abdomen and pelvis of 09/28/2014. MR lumbar spine 02/15/2014. Comparison made with report only for radiographs of the pelvis of 09/08/2013. TECHNIQUE: 5 views of the lumbar spine. FINDINGS: Mild leftward curvature of the lumbar spine. Degenerative changes in the imaged lower thoracic spine. Surgical clips in the pelvis. Severe deformity of the only partially imaged left hip. Similar findings present on CT scan of 09/28/2014 and pelvic radiographs of 09/08/2013 characteristic of diffuse left hip joint. Moderate degenerative changes in the bilateral sacroiliac joints. Facet arthritis in the lower lumbar spine. Atherosclerotic aortoiliac calcifications. Grade 1 anterolisthesis of L3 on L4. Moderate multilevel lumbar spondylosis was moderate loss of disc space height at L3-L4, and L4-L5. Straightening of the normal lumbar lordosis. XR/XR lumbar spine 4V min IMPRESSION: 1. Moderate multilevel lumbar spondylosis with grade 1 anterolisthesis of L3 on L4. 2. Facet arthritis in the lower lumbar spine. 3. Severe deformity of the partially imaged left hip. Similar findings present on CT scan of 09/28/2014 and pelvic radiographs of 09/08/2013 characteristic of fusion of left hip joint and could be evaluated with dedicated images if there was clinical indication. This study was presented today 08/24/2023 for interpretation. Stat results provided at this time as requested by referring provider.
== END 2023-08-24 12:27 | disposition home or self-care (01) ==
LOC: HO.HMGCX 12:26
PROVIDERS: PCP Nurse Practitioner Family; Visit Provider Registered Nurse Emergency
DX: M54.9 Dorsalgia, unspecified (principal)
CPT/HCPCS: 72110

== ENCOUNTER 2023-09-23 09:00 | Outpatient (AMB) | payer OTHER, SELFPAY ==
--- NOTE | 2023-09-23 09:21 | A.OFFVIS_ITS ---
Vital Signs 09/23/23 09:42 Height 5 ft Weight 165 lb BMI 32.2 Intake Visit Reasons: Newprob-Left wrist/hand pain Intake Note: Shakira is a 63 year old hand dominant female who presents today for a evaluation of her left wrist/hand pain. Patient reports ongoing pain for a month. She states that she doesn't have any strength in her left hand. Patient expresses having swelling. Pain is worse at night. She describes when she has her hand down she feels a tingling sensation. Allergies hydrocortisone Allergy (Verified 09/23/23 09:42) Rash Medication List - Last Reconciled 09/23/23 by Angelina Pepe MD albuterol sulfate 90 mcg/actuation (Ventolin HFA) 2 puffs inhalation Q4-6H PRN 30 days Alcohol Pads (alcohol swabs) 1 pad topically; NS aspirin 81 mg PO DAILY blood sugar diagnostic (FreeStyle Lite Strips) As directed 3 times a day blood-glucose meter (FreeStyle Lite Meter kit) diabetes tid testing blood-glucose sensor (FreeStyle Kaveh 3 Sensor device) tid testing cetirizine (All Day Allergy (cetirizine)) 10 mg PO DAILY 30 days cholecalciferol (vitamin D3) (Vitamin D3) 50 mcg PO DAILY cyclobenzaprine 5 mg PO TID PRN dulaglutide (Trulicity) 1.5 mg (0.5 mL) subcut QWEEK ibuprofen 600 mg PO Q8H PRN ibuprofen 800 mg PO TID PRN insulin glargine (Lantus Solostar U-100 Insulin) 40 units (0.4 mL) subcut QPM irbesartan 75 mg PO DAILY metformin 1,000 mg PO BID metoprolol succinate ER 50 mg PO DAILY omeprazole 20 mg PO BID 30 days peg-electrolyte soln 420 gram 240 mL PO Q10M pen needle, diabetic (BD Ultra-Fine Elise Pen Needle) As directed to inject insulin daily rosuvastatin 40 mg PO DAILY HPI Comments Details: Left wrist pain for one month only. Didn't fall. With finger swelling bilateral, finger pain. Worse with actvities. Described as throbbing. Denies muchn numbness. Can't open the door due to pain. Tingling left hand at night. ROS - knee pain Rash on legs, hands itchy - used OTC hydrocortisone History of osteoporosis. Family history of arthritis, cannot recall if RA. Cousin of lupus. Treatment done so far: NSAIDs, tylenol PFSH Medical History Cataracts, bilateral Nicotine dependence, cigarettes, uncomplicated History of endometrial cancer CAD (coronary artery disease) Vitamin D deficiency Obesity (BMI 30-39.9) Dyslipidemia correction (current) use of insulin Diabetic nephropathy associated with type 2 diabetes mellitus Stable proliferative diabetic retinopathy Diabetes type 2, uncontrolled Osteoarthritis HPV (human papilloma virus) infection HTN (hypertension) Surgical History History of colonoscopy History of esophagogastroduodenoscopy (EGD) History of hysterectomy History of section History of surgery Family History Father Diabetes mellitus Myocardial infarction Mother Unknown family medical history Maternal Grandmother No problems noted. Maternal Grandfather Unknown family medical history Paternal Grandfather Unknown family medical history Paternal Grandmother Unknown family medical history Paternal Aunt Ovarian cancer Social History Housing: House Alcohol intake: current Patient Tobacco Use Status: Current everyday Tobacco user Tobacco use type: Cigarette Cigarettes Per Day: 2 Years Smoked: (onset 30yo, 1ppd x 32yrs, now 6-7cig/day, 30pyh) e-Cigarette/Vaping Use: Never Used Second Hand Smoke Exposure: No Current occupational status: unemployed Cognitive needs: No Hearing needs: No Vision needs: No Review of Systems Const All systems reviewed & are unremarkable except as noted in HPI and below Physical Exam Vital Signs: BMI result Body Mass Index 32.2 Constitutional: Patient appears to be in no acute distress, well nourished and well developed. MSK: Inspection reveals appropriate head and neck positioning. No pain with palpation over the neck musculature. Cervical ROM was full. Spurling's sign negative. Bilateral shoulder ROM WNL. No ligamentous laxity or crepitance. No increased effusion. Hawkin's test is negative. No deformity noted. Finger swelling all digits, bilateral. Tender left wrist. Tender left 1st IP joint and rest of PIP joints. No intrinsic hand weakness noted. No atrophy noted. Pinky test negative. Carpal compression test negative. Tinel sign negative. Strength is 5/5 in all muscle groups tested. No increased tone noted. Neurological: Neurologic examination of the upper and lower extremities was nonfocal with intact sensation, muscle stretch reflexes and without focal motor deficits . Rausch?s negative bilaterally. Gait is non-antalgic without loss of balance. Results Reviewed Results Reviewed: I independently reviewed the results of the following: Left hand x-ray did not show erosions that I could see. Lucency noted. Ordering Physician: Nahum Caamrena Date of Service: 07/23/23 Procedure(s): XR hand wrist LT Accession Number(s): [id number] cc: Nahum Camraena~ EXAMINATION: XR HAND/WRIST, LEFT CLINICAL INFORMATION: Pain. COMPARISON: Radiographs dated 09/12/2015. TECHNIQUE: PA, lateral, and oblique views of the left hand and wrist. FINDINGS: Bony alignment and mineralization are normal. There is a neutral ulnar variance. There is very mild osteoarthritic change of the interphalangeal joint of the thumb. There is mild osteoarthritic change of the second and fourth distal interphalangeal joints, and there is moderate osteoarthritic change of the third and fifth distal interphalangeal joints. There is mild osteoarthritic change of the first carpometacarpal joint. No fracture or dislocation is seen. The proximal and distal carpal rows are intact. No focal soft tissue swelling, gas or foreign body is seen. XR/XR hand wrist LT IMPRESSION: There are multi-focal osteolytic changes of the left hand and wrist, as detailed. No fracture or dislocation is seen. There is no abnormal bone erosion. I reviewed records from the following: Pain management sees her for back pain PCP notes Orthopedic notes, sees her for left knee pain status post Euflexxa injection Assessment & Plan Assessment & Plan (1) Joint pain: Code(s): M25.50 - Pain in unspecified joint Category: Medical (2) Finger swelling: Code(s): M79.89 - Other specified soft tissue disorders Category: Medical Plan I am concerned that finger swelling is out of proportion for just osteoarthrit is. We will check lab work specifically TUAN and RF. Considering Rheumatology referral if any of those are positive. We will refer her to OT. We will provide left wrist splint today. To wear mostly at night. We will schedule EMG to rule out Carpal Tunnel Syndrome although low suspicion. Assessment and plan discussed with patient, and patient was agreeable. All questions were answered thoroughly. Angelina Pepe MD, LUCIO Board Certified, [place] Board of Physical Medicine and Rehabilitation (ABPMR) Board Certified, [place] Board of Electrodiagnostic Medicine (ABEM) Orders: Orders Rheumatoid Factor Today M25.50 - Pain in unspecified joint NE nerve conduction velocity Today M25.50 - Pain in unspecified joint TUAN Reflex Titer and Pattern Today M25.50 - Pain in unspecified joint NE electromyogram (EMG) Today M25.50 - Pain in unspecified joint OT Evaluation and Treatment Today M25.50 - Pain in unspecified joint Coding Level of Care Code New Pt Level 4 (95450) Diagnoses Joint pain M25.50 Finger swelling M79.89
[2023-09-23 09:42] VITALS: BMI 32.2
== END 2023-09-23 10:12 | disposition home or self-care (01) ==
PROVIDERS: PCP Nurse Practitioner Family; Visit Provider Physical Medicine & Rehabilitation
DX: M25.50 Pain in unspecified joint (principal); M79.89 Other specified soft tissue disorders
CPT/HCPCS: 99204

== ENCOUNTER → 2023-09-23 09:00 | Outpatient (BNVA) | payer OTHER, SELFPAY | PROVIDERS: PCP Nurse Practitioner Family; Visit Provider Physical Medicine & Rehabilitation | DX: M25.50 Pain in unspecified joint (principal); M79.89 Other specified soft tissue disorders | CPT/HCPCS: 99202 ==

== ENCOUNTER 2023-09-28 09:14 | Outpatient (REF) | payer OTHER, SELFPAY ==
--- NOTE | ~2023-09-28 | XR_ITS ---
EXAMINATION: XR WRIST, LEFT CLINICAL INFORMATION: Pain. COMPARISON: Radiographs dated 07/23/2023. TECHNIQUE: PA, lateral, and oblique views of the left wrist. FINDINGS: Bony alignment and mineralization are normal. The proximal and distal carpal rows are intact. No acute fracture or dislocation is seen. There is no unusual degenerative change. A small round, well-corticated ossific density is noted anterior to the radiocarpal joint on the lateral view, consistent with a tendon or bursal calcifications (normal variant). No abnormal bone erosion is seen. There is no focal soft tissue swelling, gas or foreign body. XR/XR wrist LT min 3V IMPRESSION: Unremarkable left wrist.
[2023-09-28 10:20] LABS: MANUAL DIFF FLAG NO
[2023-09-28 10:40] LABS: Basophils Percent Auto 0.7 % (0-2); Eosinophils Absolute Auto 0.1 X10*3/uL (0.0-0.4); Eosinophils Percent Auto 3.1 % (0-4); Hematocrit 38.9 % (37.0-47.0); Hemoglobin 12.4 g/dl (12.0-16.0); Imm Gran Abs Auto 0.01 X10*3/uL (0.00-0.03); Imm Gran Pct Auto 0.2 % (0.0-0.4); Lymphocytes Percent Auto 46.9 % (20-40); Mean Corpuscular HGB Conc 31.9 g/dl (31.0-35.0); Mean Corpuscular Hemoglobin 26.3 pg (27.0-33.0); Mean Corpuscular Volume 82.4 fL (80.0-98.0); Mean Platelet Volume 12.4 fL (9.4-12.3); Monocytes Absolute Auto 0.3 X10*3/uL (0.1-1.2); Monocytes Percent Auto 7.3 % (2-11); Neutrophils Absolute Auto 1.8 x10*3/uL (2.0-8.3); Neutrophils Percent Auto 41.8 % (45-73); Platelet Count 173 X10*3/uL (160-400); Red Blood Count 4.72 X10*6/uL (4.20-5.50); Red Cell Distribution Width 13.5 % (11.0-16.0); White Blood Count 4.3 X10*3/uL (4.8-10.8)
[2023-09-28 10:48] LABS: Appearance Urine Cloudy; Color Urine Yellow; Glucose Urine UA Negative (Negative); Leukocyte Esterase Urine Moderate (2+) (Negative); Nitrite Urine Negative (Negative); UMIC TRIGGER UACC YES; Urine Blood Negative (Negative); Urine Ketones Trace mg/dL (Negative); Urine Protein 30 (1+) mg/dL (Neg-Trace)
[2023-09-28 10:55] LABS: Bacteria Urine 3+ (None Seen); Hyaline Casts Urine 0-2 /LPF (0-2); RBC Urine 0-2 /HPF (0-2); UACC Culture Trigger YES
[2023-09-28 11:19] LABS: Iron 60 mcg/dL (30-160); Percent Iron Saturation 21 % (15-50); Total Iron Binding Capacity 283 mcg/dL (228-428); Unsaturated Iron Binding 223 ug/dL
[2023-09-28 11:36] LABS: Ferritin 83 ng/mL (10-250); Rheumatoid Factor < 13.0 IU/mL (<15.0)
[2023-09-28 11:59] LABS: Folate 10.9 ng/mL (> or = 4.0); Vitamin B12 413 pg/mL (200-900)
[2023-09-29 14:49] LABS: Hematocrit 38.2 % (35.0-45.0); Hemoglobin 12.2 g/dL (11.7-15.5); MCH 25.9 pg (27.0-33.0); MCV 81.1 fL (80.0-100.0); RBC 4.71 Million/uL (3.80-5.10); RDW 13.6 % (11.0-15.0)
[2023-10-01 15:44] LABS: Anti Nuclear Antibody Screen POSITIVE (NEGATIVE)
== END 2023-09-28 09:15 | disposition home or self-care (01) ==
LOC: HO.HMGCX 09:14
PROVIDERS: Physical Medicine & Rehabilitation; PCP Nurse Practitioner Family; Visit Provider Nurse Practitioner Family
DX: D64.9 Anemia, unspecified (principal); M25.532 Pain in left wrist; M79.642 Pain in left hand; E11.65 Type 2 diabetes mellitus with hyperglycemia; R82.90 Unspecified abnormal findings in urine
CPT/HCPCS: 36415; 73110; 81001; 82607; 82728; 82746; 83020; 83540; 85014; 85018; 85025; 85041; 86038; 86039; 86431; 87086

== ENCOUNTER 2023-10-28 12:32 | Outpatient (REF) | payer OTHER, SELFPAY ==
--- NOTE | 2023-10-28 12:36 | EMG_ITS ---
Chief complaint: Left wrist pain, finger swelling Reason for referral: Evaluate for Carpal Tunnel Syndrome Procedure done: Left upper extremity NCS/EMG Precautions and/or limitations: None The limb temperature was monitored continuously and remained between 32-36 degrees C during the performance of the NCS. Nerve Conduction Studies Anti Sensory Summary Table ?Stim Site NR Onset (ms) Norm Onset (ms) Peak (ms) Norm Peak (ms) O-P Amp (?V) Norm O-P Amp Site1 Site2 Delta-0 (ms) Dist (cm) Sarbjit (m/s) Norm Sarbjit (m/s) Left Median Anti Sensory (2nd Digit) Wrist NR <3.6 >10 Wrist 2nd Digit 14.0 Left Radial Anti Sensory (Thumb) Forearm ? 1.5 2.1 <3.1 4.5 Forearm Thumb 1.5 0.0 Left Ulnar Anti Sensory (5th Digit) Wrist ? 2.2 2.7 <3.7 5.4 >15.0 Wrist 5th Digit 2.2 14.0 64 Motor Summary Table ?Stim Site NR Onset (ms) Norm Onset (ms) O-P Amp (mV) Norm O-P Amp iAmp (mV) Amp (1st) (%) Site1 Site2 Delta-0 (ms) Dist (cm) Sarbjit (m/s) Norm Sarbjit (m/s) Left Median Motor (Abd Poll Brev) Wrist NR <3.9 >4.5 Elbow Wrist 0.0 >45 Elbow NR Left Ulnar Motor (Abd Dig Minimi) Wrist ? 2.5 <3.0 5.7 >5 6.2 100.0 B Elbow Wrist 3.0 17.0 57 >45 B Elbow ? 5.5 4.7 5.4 82.5 A Elbow B Elbow 1.9 10.0 53 >45 A Elbow ? 7.4 4.5 5.3 78.9 EMG ?Side Muscle Nerve Root Ins Act Fibs Psw Amp Dur Poly Recrt Int Pat Comment Left 1stDorInt Ulnar C8-T1 Nml Nml Nml Nml Nml 0 Nml Complete Left FlexCarRad Median C6-7 Nml Nml Nml Nml Nml 0 Nml Complete Left Biceps Musculocut C5-6 Nml Nml Nml Nml Nml 0 Nml Complete Left Triceps Radial C6-7-8 Nml Nml Nml Nml Nml 0 Nml Complete Left Deltoid Axillary C5-6 Nml Nml Nml Nml Nml 0 Nml Complete FINDINGS: Left median motor and sensory nerves showed absent response. All other nerves tested were within normal. Concentric needle EMG was performed in selected muscles of the left upper extremity. Study did not reveal signs of electric abnormalities as shown in the table below. IMPRESSION: 1. This is an abnormal study. 2. There is electrodiagnostic evidence for left severe median neuropathy at the wrist, consistent with carpal tunnel syndrome. 3. There is no electrodiagnostic evidence for ulnar neuropathy, brachial plexopathy, or cervical radiculopathy. CLINICAL COMMENT: Referring to Dr. Leyva for consideration of surgery. Also positive TUAN, has upcoming appointment with Rheumatology. Thank you for your kind referral. Angelina Pepe MD, LUCIO Board Certified, [place] Board [employer] Physical [employer] and Rehabilitation (ABPMR) Board Certified, [place] Board of Electrodiagnostic Medicine (ABEM) CODIN [id number] MTDD
== END 2023-10-28 12:33 | disposition home or self-care (01) ==
LOC: HO.NEURO 12:32
PROVIDERS: PCP Nurse Practitioner Family; Visit Provider Physical Medicine & Rehabilitation
DX: M79.601 Pain in right arm (principal); M79.602 Pain in left arm
CPT/HCPCS: 95886; 95909

== ENCOUNTER → 2023-10-28 12:36 | Outpatient (BNV) | payer OTHER, SELFPAY | PROVIDERS: PCP Nurse Practitioner Family; Visit Provider Physical Medicine & Rehabilitation | DX: G56.02 Carpal tunnel syndrome, left upper limb (principal) | CPT/HCPCS: 95886; 95909 ==

== ENCOUNTER 2023-11-10 10:00 | Outpatient (RCR) | payer OTHER, SELFPAY ==
--- NOTE | 2023-10-20 11:47 | MHC.OT.EP ---
[address] [phone] Occupational Therapy Plan of Care Patient Name: Areli Melgar Date of Evaluation: 10/20/23 Diagnosis: Left hand and finger pain Pain Location: 6-10 Left hand and wrist . MF and RF , volar wrist . shooting Pain Score: 10 Pain Scale Used: Numeric (0 - 10) Aggravating Factors: Left hand use, Alleviating Factors: Motrin 600 mg Assessment: Areli is a 63 yo female with a 2 month ho or worsening left hand and wrist pain primarily at MF, RF and distal volar forearm. Today she presents with S+S consistent with a diagnosis for flexor tendon tenosynovitis. Hand Gluer And Slicer strength , hand AROM and left hand function are limited by pain. She will benefit from OT to improve left hand pain , strength and dexterity for increased ease with daily activities Frequency and Duration: The patient will be seen 2x wk x 5 wks Short Term Goals: Demo indep with HEP Demo active digit flexion to palm Left hand use with light bimanual activities Special Procedure Technologist Goals: Report pain free with left hand and wrist AROM Left service station helper to > 25 lb Indep with light ADL and light IADL at prior level of function Quick DASH to < 30 pts with modifications as needed. Treatment Plan: Therapeutic Exercise Therapeutic Activity Home Exercise Program Splinting Patient Education Ultrasound NMES Fluidotherapy Soft Tissue Mobilization Kinesiotaping Electronically Signed By: Rosanna Martino OT CHT CLT Please Sign and return to therapist. Thank you once again for your referral.
--- NOTE | 2023-11-10 10:34 | MHC.OT.DC ---
[address] [phone] F: [phone] Occupational Therapy Discharge Note Patient Name: Areli Melgar Provider: Angelina Pepe Diagnosis: Left hand and finger pain Date of Surgery: Date of Evaluation: 10/20/23 Date of Discharge: 11/10/23 Treatments to Date: 6 Cancellations to Date: 0 No Shows to Date: 1 Discharge Status: Patient Elected to Stop Recommend MD Follow-up Discharge Summary: Pt reports no change in pain, continued high distal ulnar forearm and wrist pain with sub max active digit flexion and with passive D3 passive flexion to DPC. Passive D3 digit flexion to DPC, AROM limited by pain Positive Tinels at carpal wrist and reports of CTS sx improved with night wrist orthosis . Pt also wearing and D3 MCPj flexion block at night for trigger finger sx She reports no significant change in left hand pain or hand use She is independent with her HEP Continued skilled OT not recommended at this time Electronically Signed By: Rosanna Martino OT CHT CLT Reviewed/agree with student documentation: Therapist: Please Sign and return to therapist, thank you for your referral.
== END 2023-11-10 10:35 | disposition home or self-care (01) ==
LOC: HO.OT 10:00
PROVIDERS: PCP Nurse Practitioner Family; Visit Provider Physical Medicine & Rehabilitation
DX: M25.50 Pain in unspecified joint (principal)
CPT/HCPCS: 97035; 97110; 97140; 97166

== ENCOUNTER 2023-12-01 09:39 | Outpatient (AMB) | payer OTHER, SELFPAY ==
--- NOTE | 2023-12-01 10:02 | MHC.OFFVIS ---
Vital Signs 12/01/23 10:25 Height 5 ft Weight 162 lb BMI 31.6 Handedness Right Intake Visit Reasons: OV-CTS, left upper limb-discuss surgery Intake Note: Areli is a 63 year old right hand dominant female who presents today for a new problem visit with complaints of left wrist Carpal Tunnel Syndrome. EMG done on 10/28/23. Patient reports she had past issues with her fingers but about 3 to 4 months ago her symptoms have worsened. She is unable to make a closed fist or bend her fingers, when she does this is causes sharp pain that goes from her finger tips down to the volar aspect of her wrist. She says her numbness and tingling is in the left ring finger, middle finger, and index finger. Her pain worsens at night causing her to be unable to sleep. 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 Her left hand appears swollen today. Denies past surgeries and injuries to the left hand. She would like to discuss possible injection or surgery today. Hx of DM Type 2. Allergies hydrocortisone Allergy (Verified 12/01/23 10:32) Rash HPI HPI OV-CTS, left upper limb-discuss surgery: Details: Areli is a 63 year old right hand dominant Diabetic woman who presents for a NCS review of her left hand numbness. She complains of dense numbness in the left index, middle, and ring fingers. Symptoms worse at night & accompanied by a burning pain. She denies any numbness in her thumb or small finger. She also complains of pain, stiffness, & swelling in her fingers which radiates from her fingertips down into her wrist. her pain is worse with gripping or grasping activities. She says she cannot perform daily activities without her pain & swelling worsening. She says she has been doing OT hand therapy for her stiffness, but this has not been helpful for her. She became tearful when discussing her stiffness & pain today. She smokes cigarettes and has a hx of CAD & DM. She is currently not working. She is TUAN positive and has an appointment with Rheumatology to discuss her results. She denies a recent HgA1c [facility] Medical History (Updated 12/01/23 @ 11:20 by Suhas Hernandez) Carpal tunnel syndrome of left wrist Cataracts, bilateral Nicotine dependence, cigarettes, uncomplicated History of endometrial cancer CAD (coronary artery disease) Vitamin D deficiency Obesity (BMI 30-39.9) Dyslipidemia residential (current) use of insulin Diabetic nephropathy associated with type 2 diabetes mellitus Stable proliferative diabetic retinopathy Diabetes type 2, uncontrolled Osteoarthritis HPV (human papilloma virus) infection HTN (hypertension) Surgical History History of colonoscopy History of esophagogastroduodenoscopy (EGD) History of hysterectomy History of section History of surgery Family History Father Diabetes mellitus Myocardial infarction Mother Unknown family medical history Maternal Grandmother No problems noted. Maternal Grandfather Unknown family medical history Paternal Grandfather Unknown family medical history Paternal Grandmother Unknown family medical history Paternal Aunt Ovarian cancer Social History (Updated 12/01/23 @ 10:34 by PIETRO Stern) Housing: House Alcohol intake: current Patient Tobacco Use Status: Current everyday Tobacco user Tobacco use type: Cigarette Cigarettes Per Day: 2 Years Smoked: (onset 30yo, 1ppd x 32yrs, now 6-7cig/day, 30pyh) e-Cigarette/Vaping Use: Never Used Second Hand Smoke Exposure: No Current occupational status: unemployed and retired Cognitive needs: No Hearing needs: No Vision needs: No Review of Systems Const All systems reviewed & are unremarkable except as noted in HPI and below Physical Exam Vital Signs: BMI result Body Mass Index 31.6 Const General: cooperative, healthy appearing and no acute distress Orientation/consciousness: patient oriented x3 HEENT Head: Yes normocephalic and Yes atraumatic Eyes EOM: EOMs intact bilaterally Resp Effort & Inspection: normal respiratory effort and able to speak in complete sentences Cardio Jugular venous distension: no JVD Skin General skin exam: turgor normal Rashes: no rashes Neuro General: patient oriented x3 Extrem Other: Evaluation of Left Upper Extremity: The patient is alert, oriented, and in no acute distress Neuro: Dense numbness in the index, middle, and ring fingers. Normal sensation to the thumb & small fingers Early thenar wasting No intrinsic wasting Weak APB muscle belly firing Good finger cross Vascular: Cap refill brisk ROM: She could place her hand flat on the table Initially she could bring her fingertips to ~7-8cm from her palm We worked on ROM exercises for more than 15 minutes today in clinic Before leaving clinic she could actively bring her fingers to ~1-2cm from her palm, and passively she could be brought down to touch her palm Skin: No lacerations or abrasions. General: No Ecchymosis. No Erythema or evidence of infection. Nerve Conduction Study: Left-side only IMPRESSION: 1. This is an abnormal study. 2. There is electrodiagnostic evidence for left severe median neuropathy at the wrist, consistent with carpal tunnel syndrome. 3. There is no electrodiagnostic evidence for ulnar neuropathy, brachial plexopathy, or cervical radiculopathy. Angelina Pepe MD, LUCIO 10/28/23 Psych Appearance: grossly normal Affect: normal affect Attitude: cooperative Assessment & Plan Assessment & Plan (1) Stiffness of left hand joint: Code(s): M25.642 - Stiffness of left hand, not elsewhere classified Category: Medical (2) Carpal tunnel syndrome of left wrist: Code(s): G56.02 - Carpal tunnel syndrome, left upper limb Category: Medical (3) Diabetes type 2, uncontrolled: Code(s): E11.65 - Type 2 diabetes mellitus with hyperglycemia Category: Medical Plan Assessment & Plan: 1. Left hand stiffness In all digits I educated her about this condition We worked on ROM exercises for more than 15 minutes today in clinic She will work on ROM exercises at home, 20x daily She reports no improvement from attending OT hand therapy and does not want a new referral for therapy. She became tearful when discussing this and says she did not want to attend hand therapy. She felt like she tried hand therapy and they put her hand in the sand in that it was not helpful. 2. Left carpal tunnel syndrome, severe With dense numbness in the index, middle, and ring fingers Symptoms worse at night, with pain in the volar wrist & forearm I educated her about this condition I discussed operative and non-operative treatment options The patient would like to proceed with surgery. I explained that I am hesitant to proceed with surgery due to the severity of her hand stiffness. I explained that I may cancel this surgery if she has not sufficiently improved her ROM prior to surgery. She expressed understanding The risks and benefits of operative treatment were discussed with the patient and the patient wishes to proceed with surgery. These risks include, but are not limited to risk of damage to blood vessels, nerves, tendons, infection, recurrence, incomplete relief of preoperative symptoms, persistent pain, possible need for further surgery and the risks associated with regional blocks and anesthesia. The plan is to take the patient to the operating room sometime in the next few months for the following procedures: 1. Left carpal tunnel release, under local All of the preoperative paperwork including the consent was reviewed today. All the patient's questions were answered. The patient understands that they will be contacted by our pharmacy scheduler soon to schedule this procedure She denies blood thinners, asthma, lung, kidney issues She has CAD, is a smoker, and is a Diabetic. She does not know her most recent HgA1c. They will need an updated HgA1c that is <8.1% in order to proceed with surgery, and they expressed understanding Scribed for Lisa Leyva MD by Suhas Hernandez, medical sonographer, on 12/01/23 at 11:20 AM, EST. Coding Level of Care Code Est Pt Level 4 (65871) Diagnoses Stiffness of left hand joint M25.642 Carpal tunnel syndrome of left wrist G56.02 Diabetes type 2, uncontrolled E11.65
[2023-12-01 10:25] VITALS: BMI 31.6
== END 2023-12-01 11:28 | disposition home or self-care (01) ==
PROVIDERS: PCP Nurse Practitioner Family; Visit Provider Orthopaedic Surgery
DX: M25.642 Stiffness of left hand, not elsewhere classified (principal); G56.02 Carpal tunnel syndrome, left upper limb; E11.65 Type 2 diabetes mellitus with hyperglycemia
CPT/HCPCS: 99214

== ENCOUNTER → 2023-12-01 09:39 | Outpatient (BNVA) | payer OTHER, SELFPAY | PROVIDERS: PCP Nurse Practitioner Family; Visit Provider Orthopaedic Surgery | DX: M25.642 Stiffness of left hand, not elsewhere classified (principal); G56.02 Carpal tunnel syndrome, left upper limb; E11.65 Type 2 diabetes mellitus with hyperglycemia | CPT/HCPCS: 99212 ==

== ENCOUNTER 2023-12-14 08:01 | Outpatient (REF) | payer OTHER, SELFPAY ==
[2023-12-14 10:06] LABS: MANUAL DIFF FLAG NO
[2023-12-14 10:14] LABS: Appearance Urine Clear; Color Urine Yellow; Glucose Urine UA Negative (Negative); Leukocyte Esterase Urine Small (1+) (Negative); Nitrite Urine Negative (Negative); PH 5.5 (5.0-9.0); UMIC TRIGGER UACC YES; Urine Blood Negative (Negative); Urine Ketones Negative (Negative); Urine Protein Trace mg/dL (Neg-Trace)
[2023-12-14 10:18] LABS: Basophils Percent Auto 0.5 % (0-2); Eosinophils Absolute Auto 0.2 X10*3/uL (0.0-0.4); Hematocrit 38.7 % (37.0-47.0); Imm Gran Abs Auto 0.01 X10*3/uL (0.00-0.03); Imm Gran Pct Auto 0.2 % (0.0-0.4); Lymphocytes Absolute Auto 2.9 X10*3/uL (1.2-4.9); Lymphocytes Percent Auto 46.6 % (20-40); Mean Corpuscular Hemoglobin 25.9 pg (27.0-33.0); Mean Corpuscular Volume 83.6 fL (80.0-98.0); Mean Platelet Volume 12.8 fL (9.4-12.3); Monocytes Absolute Auto 0.5 X10*3/uL (0.1-1.2); Neutrophils Absolute Auto 2.6 x10*3/uL (2.0-8.3); Neutrophils Percent Auto 41.7 % (45-73); Platelet Count 201 X10*3/uL (160-400); Red Blood Count 4.63 X10*6/uL (4.20-5.50); Red Cell Distribution Width 14.4 % (11.0-16.0); White Blood Count 6.3 X10*3/uL (4.8-10.8)
[2023-12-14 10:32] LABS: Bacteria Urine 1+ (None Seen); Hyaline Casts Urine 0-2 /LPF (0-2); RBC Urine 0-2 /HPF (0-2); UACC Culture Trigger YES; WBC Urine 0-5 /HPF (0-5)
[2023-12-14 10:37] LABS: Alanine Aminotransferase 23 U/L (0-31); Albumin Level 4.2 g/dL (3.5-5.0); Alkaline Phosphatase 73 U/L (39-117); Anion Gap 14 (12-20); Aspartate Amino Transferase 16 U/L (5-31); Bilirubin Total 0.3 mg/dL (0.0-1.0); Blood Urea Nitrogen 11 mg/dL (9-16); Calcium 9.1 mg/dL (8.4-10.2); Carbon Dioxide 22 mmol/L (22-29); Chloride 110 mmol/L (96-108); Cholesterol 107 mg/dL (<200); Estimated Glomerular Filt Rate > 60; Glucose Fasting 123 mg/dL (60-99); HDL Cholesterol 30 mg/dL (>40); LDL Cholesterol Calculated 54 mg/dL (<100); Potassium 3.7 mmol/L (3.3-5.1); Sodium 142 mmol/L (135-145); Triglycerides 116 mg/dL (<150)
[2023-12-14 10:56] LABS: TSH reflex Free T4 1.85 uIU/mL (0.32-4.0)
[2023-12-14 11:04] LABS: Estimated Average Glucose 200 mg/dL; Hemoglobin A1c % 8.6 % (<6.0)
== END 2023-12-14 08:02 | disposition home or self-care (01) ==
LOC: HO.HMGCLDS 08:01
PROVIDERS: PCP Nurse Practitioner Family; Visit Provider Nurse Practitioner Family
DX: E11.21 Type 2 diabetes mellitus with diabetic nephropathy (principal); N28.9 Disorder of kidney and ureter, unspecified
CPT/HCPCS: 36415; 80053; 80061; 81001; 81003; 83036; 84443; 85025; 87086

== ENCOUNTER 2023-12-14 14:40 | Outpatient (AMB) | payer OTHER, SELFPAY ==
--- NOTE | 2023-12-14 15:29 | A.OFFPC_ITS ---
Vital Signs 12/14/23 15:30 Height 5 ft 2 in Weight 165 lb BMI 30.2 BP 130/78 Blood Pressure Location Rt brachial Position Sitting Pulse 68 Pulse Source Pulse Oximeter Pulse Oximetry (%) 98 Oxygen Delivery Method Room Air Intake Visit Reasons: 5 month Follow up Intake Note: Patient here for DM f/u. pt would like to know how A1c is still elevated as she has made life style changes. Allergies hydrocortisone Allergy (Verified 12/14/23 15:38) Rash Tobacco use date assessed: 07/23/23 Dental Screening Dental Screen Date: 07/23/23 HPI 5 month Follow up HPI Details diabetes: pt reports morning sugars are around 100. A1C is 8.6, will have her check her sugars BID, randomly throughout the day to see where she is spiking. Pt reports taking all her meds regularly. Will change meds according to other values. Pt is scheduled for a eye exam in December. Pt denies any polyuria, polydipsia, or neuropathy. She understands the s/s of hypoglycemia and how to correct it. 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[facility] Medical History (Updated 12/14/23 @ 15:58 by Nahum Camarena [facility]) Carpal tunnel syndrome of left wrist Cataracts, bilateral Nicotine dependence, cigarettes, uncomplicated History of endometrial cancer CAD (coronary artery disease) Vitamin D deficiency Obesity (BMI 30-39.9) Dyslipidemia 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 Diabetic nephropathy associated with type 2 diabetes mellitus Stable proliferative diabetic retinopathy Diabetes type 2, uncontrolled Osteoarthritis HPV (human papilloma virus) infection HTN (hypertension) Surgical History History of colonoscopy History of esophagogastroduodenoscopy (EGD) History of hysterectomy History of section History of surgery Family History Father Diabetes mellitus Myocardial infarction Mother Unknown family medical history Maternal Grandmother No problems noted. Maternal Grandfather Unknown family medical history Paternal Grandfather Unknown family medical history Paternal Grandmother Unknown family medical history Paternal Aunt Ovarian cancer Social History Housing: House Alcohol intake: current Patient Tobacco Use Status: Current everyday Tobacco user Tobacco use type: Cigarette Cigarettes Per Day: 2 Years Smoked: (onset 30yo, 1ppd x 32yrs, now 6-7cig/day, 30pyh) e-Cigarette/Vaping Use: Never Used Second Hand Smoke Exposure: No Current occupational status: unemployed and retired Cognitive needs: No Hearing needs: No Vision needs: No Questionnaire PHQ-9 Over the last 2 weeks, how often have you been bothered by any of the following problems? 1. Little interest or pleasure in doing things: not at all 2. Feeling down, depressed, or hopeless: not at all 3. Trouble falling or staying asleep, or sleeping too much: several days 4. Feeling tired or having little energy: not at all 5. Poor appetite or overeating: not at all 6. Feeling bad about yourself - or that you are a failure or have let yourself or your family down: not at all 7. Trouble concentrating on things, such as reading the newspaper or watching television: not at all 8. Moving or speaking so slowly that other people could have noticed. Or the opposite - being so fidgety or restless that you have been moving around a lot more than usual: not at all 9. Thoughts that you would be better off or of hurting yourself in some way : not at all Total score: 1 Depression Screening Interpretation: Negative Depression Screening Done: Yes 04266 - PHQ-9 Billing: Yes Source: Developed by Drs. Bryson Roca, Siri Ray, Jay Simms and colleagues, with an educational toby from [employer]. Thrive Questionnaire Date Thrive assessed: 07/23/23 I am a: Patient What is your living situation today?: I have a steady place to live Within the past 12 months, did the food you bought not last and you didn't have the money to get more?: Never true Within the past 12 months, did you worry whether your food would run out before you got money to buy more?: Never true Do you have trouble paying for medicines?: No Do you have trouble getting transportation to medical appointments?: No Do you have trouble paying your heating and electricity bill?: No Do you have trouble taking care of your child, family member or friend?: No Do you have trouble with day-to-day activities such as bathing, preparing meals, shopping, managing finances, etc.?: No Are you currently unemployed and looking for a job?: No Are you interested in more education?: No Please select the resources that you would like help with: Housing/[facility] Currently or been in a relationship where the following occur: No concerns reported THRIVE Score: 0 AUDIT C Alcohol Use Questionnaire (AUDIT-C) 1. How often do you have a drink containing alcohol?: Never Total Score: 0 RUDOLPH-7 AMB Questionnaire RUDOLPH-7 Date RUDOLPH - 7 assessed: 07/23/23 Feeling nervous, anxious, or on edge: 0 = Not at all Not being able to stop or control worryin = Not at all Worrying too much about different things: 0 = Not at all Trouble relaxin = Not at all Being so restless that it is hard to sit still: 0 = Not at all Becoming easily annoyed or irritable: 0 = Not at all Feeling afraid as if something awful might happen: 0 = Not at all Total RUDOLPH-7 score (0-4 normal; 5-9 mild; 10-14 moderate; 15-21 severe): 0 Source: Developed by Drs. Bryson Roca, Siri Rya, Jay Simms and colleagues, with an educational toby from [employer]. RUDOLPH-7 Assessment Billing RUDOLPH-7 Assessment Tool: RUDOLPH-7 Assessment 79811 Physical exam (Primary Care) Vital Signs: Last Vital Signs Pulse 68 12/14/23 15:30 BP 130/78 12/14/23 15:30 Pulse Ox 98 12/14/23 15:30 Oxygen Delivery Method Room Air 12/14/23 15:30 BMI result Body Mass Index 30.2 Tobacco/Smoking Status: Tobacco use Status Tobacco use date assessed 07/23/23 12/14/23 15:30 Patient Tobacco Use Status Current everyday Tobacco 12/14/23 15:30 Tobacco use type Cigarette 12/14/23 15:30 e-Cigarette/Vaping Use Never Used 12/14/23 15:30 PHQ-9: PHQ-9 Score PHQ-9: Total score 1 12/14/23 15:32 Depression Screening Interpretation: Negative Thrive Assessment: Date of Thrive Assessment Date Thrive assessed 07/23/23 12/14/23 15:30 Currently or been in a relationship where the following occur: No concerns reported Const General: cooperative, healthy appearing, comfortable, no acute distress and well developed Resp Effort & Inspection: normal respiratory effort Auscultation: clear to auscultation bilaterally Cardio Rate: regular rate Rhythm: regular rhythm Heart sounds: S1 normal heart sound present and S2 normal heart sound present Extrem Other: + sensation with use of monofilament to feet Psych Appearance: grossly normal Mental Status: mental status grossly normal Speech and movement: Normal speech and movement present Affect: normal affect Attitude: cooperative Thought process: Normal thought process present Insight: Good insight present (Psych) Judgement: Good judgement present (Psych) Assessment and Plan Assessment & Plan (1) Diabetes type 2, uncontrolled: Code(s): E11.65 - Type 2 diabetes mellitus with hyperglycemia Plan: increase trulicity from 3mg to 4.5mg weekly. Will have her take her sugars more often throughout each day to see where she is spiking up. Medications: Changed From dulaglutide 3 mg (0.5 mL) subcut QWEEK 2 mL 1RF E11.65 - Type 2 diabetes mellitus with hyperglycemia To dulaglutide 4.5 mg (0.5 mL) subcut QWEEK 2 mL 1RF E11.65 - Type 2 diabetes mellitus with hyperglycemia Coding Level of Care Code Est Pt Level 3 (89293) Diagnoses Diabetes type 2, uncontrolled E11.65 Additional Codes RUDOLPH-7 Assessment Billing - RUDOLPH-7 Assessment Tool: RUDOLPH-7 Assessment [id number] ([id number])
[2023-12-14 15:30] VITALS: BP 130/78; PULSE 68; O2SAT 98; BMI 30.2
== END 2023-12-14 16:24 | disposition home or self-care (01) ==
PROVIDERS: PCP Nurse Practitioner Family; Visit Provider Nurse Practitioner Family
DX: E11.65 Type 2 diabetes mellitus with hyperglycemia (principal)
CPT/HCPCS: 99213

== ENCOUNTER 2024-01-19 12:07 | Outpatient (AMB) | payer OTHER, SELFPAY ==
--- NOTE | 2024-01-19 12:09 | AM.OFFWIN_ITS ---
Intake Vital Signs 01/19/24 12:10 Height 5 ft 2 in Weight 165 lb BMI 30.2 BP 120/68 Blood Pressure Location Rt brachial Position Sitting Pulse 74 Pulse Source Pulse Oximeter Pulse Oximetry (%) 94 Oxygen Delivery Method Room Air Intake Visit Reasons: EP- Sinus congestion, pressure in nose, sneezing Intake Note: patient here for sinus pressure, cough that have been present for 3-4 days. Patient Tobacco Use Status: Current everyday Tobacco user Allergies hydrocortisone Allergy (Verified 01/19/24 12:11) Rash Do you need a note to return to daycare/school/sports/work: No HPI HPI Comments History of Present Illness Details 63 y/o female patient who presents to [facility] walk in clinic with c/o URI symptoms x 4 days now. Denies fevers, chills, nausea or vomiting. [facility] Medical History (Updated 12/17/23 @ 09:09 by Diana Montiel PA-C) CAD (coronary artery disease) HTN (hypertension) Dyslipidemia Diabetes type 2, uncontrolled Diabetic nephropathy associated with type 2 diabetes mellitus longterm (current) use of insulin Stable proliferative diabetic retinopathy History of endometrial cancer HPV (human papilloma virus) infection Nicotine dependence, cigarettes, uncomplicated Carpal tunnel syndrome of left wrist Cataracts, bilateral Osteoarthritis Vitamin D deficiency Obesity (BMI 30-39.9) Surgical History History of colonoscopy History of esophagogastroduodenoscopy (EGD) History of hysterectomy History of section History of surgery Family History Father Diabetes mellitus Myocardial infarction Mother Unknown family medical history Maternal Grandmother No problems noted. Maternal Grandfather Unknown family medical history Paternal Grandfather Unknown family medical history Paternal Grandmother Unknown family medical history Paternal Aunt Ovarian cancer Social History Housing: House Alcohol intake: current Patient Tobacco Use Status: Current everyday Tobacco user Tobacco use type: Cigarette Cigarettes Per Day: 2 Years Smoked: (onset 30yo, 1ppd x 32yrs, now 6-7cig/day, 30pyh) e-Cigarette/Vaping Use: Never Used Second Hand Smoke Exposure: No Current occupational status: unemployed and retired Cognitive needs: No Hearing needs: No Vision needs: No Review of Systems Const All systems reviewed & are unremarkable except as noted in HPI and below Physical Exam Vital Signs: Last Vital Signs Pulse 74 01/19/24 12:10 BP 120/68 01/19/24 12:10 Pulse Ox 94 01/19/24 12:10 Oxygen Delivery Method Room Air 01/19/24 12:10 BMI result Body Mass Index 30.2 Const General: comfortable and no acute distress Nutritional Appearance: obese Orientation/consciousness: patient oriented x3 HEENT Head: Yes normocephalic Ears: external ears normal and TM abnormal bulging bilateral and with fluid behind the TM bilateral; not erythematous, not perforated and not retracted General nose exam: Abnormal mucous membranes and turbinates present boggy and erythematous and Nasal discharge present Face and sinus: Yes sinuses nontender Mouth: moist mucous membranes Throat: Yes posterior oropharynx normal Resp Effort & Inspection: normal respiratory effort and able to speak in complete sentences Auscultation: clear to auscultation bilaterally, no crackles, no rales, no rhonchi and no wheezes Cardio Heart sounds: S1 normal heart sound present and S2 normal heart sound present Neuro General: patient oriented x3 Assessment & Plan Assessment & Plan (1) Upper respiratory infection: Code(s): J06.9 - Acute upper respiratory infection, unspecified Qualifiers: URI type: unspecified viral URI Qualified Code(s): J06.9 - Acute upper respiratory infection, unspecified Plan: Ordered SARs Rest and hydrate well with fluids Acetaminophen for pain relief Cold and Flu OTC remedies. Orders: Orders SARS-CoV2/FLU/RSV Today J06.9 - Acute upper respiratory infection, unspecified Medications: New oxymetazoline 0.05% (Afrin (oxymetazoline)) 2 sprays intranasal Q12H 3 days PRN 15 mL 0RF nasal congestion J06.9 - Acute upper respiratory infection, unspecified acetaminophen 1,000 mg (2 x 500 mg) PO Q6H PRN 30 caps 0RF pain J06.9 - Acute upper respiratory infection, unspecified Coding Level of Care Code Est Pt Level 3 (02951) Diagnoses Viral upper respiratory tract infection J06.9 URI type: unspecified viral URI Time Spent (min) 15
[2024-01-19 12:10] VITALS: BP 120/68; PULSE 74; O2SAT 94; BMI 30.2
== END 2024-01-19 12:55 | disposition home or self-care (01) ==
PROVIDERS: PCP Nurse Practitioner Family; Visit Provider Nurse Practitioner Family
DX: J06.9 Acute upper respiratory infection, unspecified (principal)
CPT/HCPCS: 99213

== ENCOUNTER 2024-01-19 12:27 | Outpatient (REF) | payer OTHER, SELFPAY ==
[2024-01-19 18:06] LABS: Influenza A PCR NEGATIVE (Negative); Influenza B PCR NEGATIVE (Negative); Resp Syncy Virus RNA Qual PCR NEGATIVE (Negative); SARS COV2 PCR INHOUSE NEGATIVE (Negative)
== END 2024-01-19 12:28 | disposition home or self-care (01) ==
LOC: HO.LAB 12:27
PROVIDERS: Visit Provider Nurse Practitioner Family
DX: J06.9 Acute upper respiratory infection, unspecified (principal)
CPT/HCPCS: 0241U

== ENCOUNTER 2024-03-15 12:38 | Outpatient (AMB) | payer OTHER, SELFPAY ==
--- NOTE | 2024-03-15 12:40 | A.OFFVIS_ITS ---
Vital Signs 03/15/24 12:44 Height 5 ft Weight 165 lb 5.547 oz BMI 32.3 BP 120/78 Blood Pressure Location Rt brachial Position Sitting Pulse 71 Pulse Source Pulse Oximeter Pulse Oximetry (%) 94 Oxygen Delivery Method Room Air Intake Visit Reasons: +TUAN/cm Intake Note: Patient presents for +TUAN. Allergies hydrocortisone Allergy (Verified 01/19/24 12:11) Rash Medication List - Last Reconciled 03/15/24 by Verito Yin MD acetaminophen 1,000 mg (2 x 500 mg) PO Q6H PRN albuterol sulfate 90 mcg/actuation (Ventolin HFA) 2 puffs inhalation Q4-6H PRN 30 days Alcohol Pads (alcohol swabs) 1 pad topically; NS aspirin 81 mg PO DAILY blood sugar diagnostic (FreeStyle Lite Strips) As directed 3 times a day blood-glucose meter (FreeStyle Lite Meter kit) diabetes tid testing blood-glucose sensor (FreeStyle Kaveh 3 Sensor device) tid testing cetirizine (All Day Allergy (cetirizine)) 10 mg PO DAILY 30 days cholecalciferol (vitamin D3) (Vitamin D3) 50 mcg PO DAILY cyclobenzaprine 5 mg PO TID PRN dulaglutide 4.5 mg (0.5 mL) subcut QWEEK ibuprofen 600 mg PO Q8H PRN ibuprofen 800 mg PO TID PRN insulin glargine (Lantus Solostar U-100 Insulin) 40 units (0.4 mL) subcut QPM irbesartan 75 mg PO DAILY metformin 1,000 mg PO BID metoprolol succinate ER 50 mg PO DAILY omeprazole 20 mg PO BID oxymetazoline 0.05% (Afrin (oxymetazoline)) 2 sprays intranasal Q12H PRN 3 days peg-electrolyte soln 420 gram 240 mL PO Q10M pen needle, diabetic (BD Ultra-Fine Elise Pen Needle) As directed to inject insulin daily rosuvastatin 40 mg PO DAILY HPI Comments Details: This is a 63-year-old female who presents for evaluation of bilateral hand pain, more severe on the left and associated positive TUAN. States that he has been having bilateral hand pain, especially at the PIP is and DIP is, especially the left hand most specifically the left 3rd PIP. She was referred by physiatry. She also had EMG/NCV which showed carpal tunnel syndrome. She was referred to hand surgery and surgery was discussed. Patient denies any skin rashes. Denies any unintentional fevers. She is unaware of any family history of an autoimmune rheumatic disease. She is unaware of any history of DVT/PE. Denies history of recurrent miscarriages. 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 Maternal Grandfather Unknown family medical history Paternal Grandfather Unknown family medical history Paternal Grandmother Unknown family medical history Paternal Aunt Ovarian cancer Social History Housing: House Alcohol intake: current Patient Tobacco Use Status: Current everyday Tobacco user Tobacco use type: Cigarette Cigarettes Per Day: 2 Years Smoked: (onset 30yo, 1ppd x 32yrs, now 6-7cig/day, 30pyh) e-Cigarette/Vaping Use: Never Used Second Hand Smoke Exposure: No Current occupational status: unemployed and retired Cognitive needs: No Hearing needs: No Vision needs: No Female Reproductive History Menstrual Total pregnancies: 2 Full term: 2 Review of Systems Const Denies fever(s) GI Reports heartburn Musc Reports arthralgias, Reports joint swelling, Reports limited range of motion and Reports stiffness Physical Exam Vital Signs: Last Vital Signs Pulse 71 03/15/24 12:44 BP 120/78 03/15/24 12:44 Pulse Ox 94 03/15/24 12:44 Oxygen Delivery Method Room Air 03/15/24 12:44 BMI result Body Mass Index 32.3 Const General: cooperative, healthy appearing and comfortable Nutritional Appearance: obese Orientation/consciousness: patient oriented x3 Limitations: no limitations HEENT Head: Yes normocephalic and Yes atraumatic Mouth: moist mucous membranes Resp Effort & Inspection: normal respiratory effort and able to speak in complete sentences Skin General skin exam: no rashes or lesions noted Neuro General: patient oriented x3 Extrem Other: No wrist swelling or tenderness or pain with flexion-extension bilaterally There is mild generalized puffiness of hands and fingers Right hand without any tender or swollen joints Left hand few tender PIP is and DIP is. Especially left 3rd PIP Mildly reduced left finger contraction No flexor tendon tenderness bilaterally Normal nailfold capillaroscopy Assessment & Plan Assessment & Plan (1) Positive TUAN (antinuclear antibody): Code(s): R76.8 - Other specified abnormal immunological findings in serum Category: Medical Plan: This is a 63-year-old female who presents for evaluation of bilateral hand pain and swelling in the context of a positive TUAN 1-80 nucleolar pattern. On exam I think her clinical picture is rather consistent with bilateral hand osteoarthritis with possible superimposed diabetic cheiroarthropathy (diabetic for 30 years) however given positive TUAN nucleolar pattern I will order comprehensive serology to screen for underlying autoimmune rheumatic disease Follow-up in 4 weeks Plan I spent 46 minutes reviewing patient's chart, evaluating patient, ordering diagnostic workup, counseling patient and documenting in the chart Orders: Orders Complement C3 Today M32.9 - Systemic lupus erythematosus, unspecified Erythrocyte Sedimentation Rate Today M32.9 - Systemic lupus erythematosus, unspecified Scleroderma 12 Panel Today M34.9 - Systemic sclerosis, unspecified Anti Extractable Nuclear Ag Today M32.9 - Systemic lupus erythematosus, unspecified Anti DNA DS Antibody Today M32.9 - Systemic lupus erythematosus, unspecified Complement C4 Today M32.9 - Systemic lupus erythematosus, unspecified C Reactive Protein Today M32.9 - Systemic lupus erythematosus, unspecified DNA Double Stranded-Crithidia Today M32.9 - Systemic lupus erythematosus, unspecified Sjogren's Antibodies Today M32.9 - Systemic lupus erythematosus, unspecified Cyclic Citrullinated Peptide Today M25.50 - Pain in unspecified joint Coding Level of Care Code New Pt Level 4 (49934) Diagnoses Positive TUAN (antinuclear antibody) R76.8
[2024-03-15 12:44] VITALS: BP 120/78; PULSE 71; O2SAT 94; BMI 32.3
== END 2024-03-15 13:48 | disposition home or self-care (01) ==
PROVIDERS: PCP Nurse Practitioner Family; Visit Provider Student in an Organized Health Care Education/Training Program
DX: R76.8 Other specified abnormal immunological findings in serum (principal)
CPT/HCPCS: 99204

== ENCOUNTER 2024-03-16 10:53 | Outpatient (AMB) | payer OTHER, SELFPAY ==
[2024-03-16 11:13] VITALS: BMI 32.1
--- NOTE | 2024-03-16 11:13 | MHC.AMNUTRGE ---
VS Expanded 03/16/24 11:13 Height 5 ft Weight 164 lb 3.91 oz BMI 32.1 Intake Visit Reasons: T2DM/CONFIRMED Allergies hydrocortisone Allergy (Verified 01/19/24 12:11) Rash Nutrition Presentation Details: Pt presents for MNT f/u for T2DM Pt reports doing well. Did not bring glucometer to this appt and reports her bg ranges from 120-130s int he fasting state food frequency fruits: 0-1 vex/wk dairy 3-4 x/d fish : 2-3 x/wk starches 18-20 serving/d fried foods 1-2x/m pastries: 0-1/wk physical activity: sedentary etoh/smoking: denies BS Monitoring Most Recent Diabetes Results: Cholesterol 107 mg/dL (<200) 12/14/23 HDL Cholesterol 30 mg/dL (>40) L 12/14/23 Triglycerides 116 mg/dL (<150) 12/14/23 Creatinine 0.64 mg/dL (0.5-1.4) 12/14/23 Blood Urea Nitrogen 11 mg/dL (9-16) 12/14/23 Sodium 142 mmol/L (135-145) 12/14/23 Potassium 3.7 mmol/L (3.3-5.1) 12/14/23 Chloride 110 mmol/L (96-108) H 12/14/23 Carbon Dioxide 22 mmol/L (22-29) 12/14/23 Calcium 9.1 mg/dL (8.4-10.2) 12/14/23 AST 16 U/L (5-31) 12/14/23 ALT 23 U/L (0-31) 12/14/23 Total Protein 7.0 g/dL (6.5-8.0) 12/14/23 Albumin 4.2 g/dL (3.5-5.0) 12/14/23 [facility] Medical History CAD (coronary artery disease) HTN (hypertension) Dyslipidemia Diabetes type 2, uncontrolled Diabetic 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 associated with type 2 diabetes 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 Maternal Grandfather Unknown family medical history Paternal Grandfather Unknown family medical history Paternal Grandmother Unknown family medical history Paternal Aunt Ovarian cancer Social History Housing: House Alcohol intake: current Patient Tobacco Use Status: Current everyday Tobacco user Tobacco use type: Cigarette Cigarettes Per Day: 2 Years Smoked: (onset 30yo, 1ppd x 32yrs, now 6-7cig/day, 30pyh) e-Cigarette/Vaping Use: Never Used Second Hand Smoke Exposure: No Current occupational status: unemployed and retired Cognitive needs: No Hearing needs: No Vision needs: No Assessment & Plan Assessment & Plan (1) Diabetic nephropathy associated with type 2 diabetes mellitus: Code(s): E11.21 - Type 2 diabetes mellitus with diabetic nephropathy Category: Medical Plan: wt: 77 kg (07/2023), 74 kg (03/24) Est kcal needs as per MSJ: 1500- (40% carb, 30% protein/fat) Est fluid needs as per 30 ml/d: 2300 ml/d Est prot per day as per 1 g/kg bw: 77g/d Recommend fiber intake : 8-10 g per day and gradually increase to 25-28 g per day for women and 35-38 g for men or as tolerated Recommend sodium intake per day : less than 2000 mg Educated patient on: ( R = reviewed V = verbalizes understanding N/R = needs review N/A = not applicable Food sources of carbohydrate, adequate serving sizes and its role in various health conditions: R ,V Differences between complex carbohydrates a simple carbohydrates, role of fiber in diet: R ,V Differences between types of fats and role in diet (mono on saturated fat fatty acids, saturated fatty acids, trans fats): R V Food sources of sodium in salt and healthy modifications for heart health in kidney health: R Healthy plate method concept: R V Physical activity: Benefits a precaution: R V Hypoglycemia protocol (rule of 15): V Dietary prevention of Hyperglycemia: R V monitor your blood sugar 2 hours after a meal (blood sugar goal less than 180 , 2 hours after the meal ): V Patient Instructions: Include foods with anti inflammatory properties: seeds, avocado/oats/fruits Continue working on reducing fats (fried foods, amount of butter, creams, pastries Coding Level of Care Code Nutr Indiv Subseq (86447) Diagnoses Diabetic nephropathy associated with type 2 diabetes mellitus E11.21 Time Spent (min) 30
== END 2024-03-16 11:45 | disposition home or self-care (01) ==
PROVIDERS: PCP Nurse Practitioner Family; Visit Provider Dietitian, Registered
DX: E11.21 Type 2 diabetes mellitus with diabetic nephropathy (principal)

== ENCOUNTER → 2024-03-16 10:53 | Outpatient (BNVA) | payer OTHER, SELFPAY | PROVIDERS: PCP Nurse Practitioner Family; Visit Provider Dietitian, Registered | DX: E11.21 Type 2 diabetes mellitus with diabetic nephropathy (principal) | CPT/HCPCS: 97803 ==

== ENCOUNTER 2024-03-24 12:13 | Outpatient (AMB) | payer OTHER, SELFPAY ==
[2024-03-24 12:21] VITALS: BP 130/70; PULSE 79; O2SAT 95; BMI 31.4
--- NOTE | 2024-03-24 12:21 | MHC.PC.OV ---
Vital Signs 03/24/24 12:21 Height 5 ft Weight 161 lb BMI 31.4 BP 130/70 Blood Pressure Location Rt brachial Position Sitting Pulse 79 Pulse Source Pulse Oximeter Pulse Oximetry (%) 95 Intake Visit Reasons: Follow-up Intake Note: pt is here for follow up Online Marketing Strategist Required: No Accompanied by: Self / Same As Patient Allergies hydrocortisone Allergy (Verified 03/24/24 12:21) Rash Tobacco use date assessed: 07/23/23 Dental Screening Dental Screen Date: 07/23/23 HPI Follow-up HPI Details Pt is a diabetic, on an ARB and a statin. A1C in office today is 8.3. Due for microalbumin in the near future, will order. Denies polyuria, polydipsia, and neuropathy. Pt denies any signs and symptoms of hypoglycemia and does know how to correct it. Will increase lantus from 40 units to 45 units. 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 Maternal Grandfather Unknown family medical history Paternal Grandfather Unknown family medical history Paternal Grandmother Unknown family medical history Paternal Aunt Ovarian cancer Social History Housing: House Alcohol intake: current Patient Tobacco Use Status: Current everyday Tobacco user Tobacco use type: Cigarette Cigarettes Per Day: 2 Years Smoked: (onset 30yo, 1ppd x 32yrs, now 6-7cig/day, 30pyh) Packs per year/per ci.00 e-Cigarette/Vaping Use: Never Used Second Hand Smoke Exposure: No Current occupational status: unemployed and retired Cognitive needs: No Hearing needs: No Vision needs: No Questionnaire Thrive Questionnaire Date Thrive assessed: 12/14/23 I am a: Patient What is your living situation today?: I have a steady place to live Within the past 12 months, did the food you bought not last and you didn't have the money to get more?: Never true Within the past 12 months, did you worry whether your food would run out before you got money to buy more?: Never true Do you have trouble paying for medicines?: No Do you have trouble getting transportation to medical appointments?: No Do you have trouble paying your heating and electricity bill?: No Do you have trouble taking care of your child, family member or friend?: No Do you have trouble with day-to-day activities such as bathing, preparing meals, shopping, managing finances, etc.?: No Are you currently unemployed and looking for a job?: No Are you interested in more education?: No Please select the resources that you would like help with: None Currently or been in a relationship where the following occur: No concerns reported THRIVE Score: 0 RUDOLPH-7 AMB Questionnaire RUDOLPH-7 Date RUDOLPH - 7 assessed: 07/23/23 Source: Developed by Drs. Bryson Roca, Siri Ray, Jay Simms and colleagues, with an educational toby from [employer]. Review of Systems Const Reports as per HPI Physical exam (Primary Care) Vital Signs: Last Vital Signs Pulse 79 03/24/24 12:21 BP 130/70 03/24/24 12:21 Pulse Ox 95 03/24/24 12:21 BMI result Body Mass Index 31.4 Tobacco/Smoking Status: Tobacco use Status Tobacco use date assessed 07/23/23 03/24/24 12:22 Patient Tobacco Use Status Current everyday Tobacco 03/24/24 12:22 Tobacco use type Cigarette 03/24/24 12:22 e-Cigarette/Vaping Use Never Used 03/24/24 12:22 Thrive Assessment: Date of Thrive Assessment Date Thrive assessed 12/14/23 03/24/24 12:22 Currently or been in a relationship where the following occur: No concerns reported Const General: cooperative Nutritional Appearance: obese Orientation/consciousness: patient oriented x3 Resp Effort & Inspection: normal respiratory effort Auscultation: clear to auscultation bilaterally Cardio Rate: regular rate Rhythm: regular rhythm Heart sounds: S1 normal heart sound present and S2 normal heart sound present Neuro General: patient oriented x3 Extrem Other: bilat feet: + sensation with use of monofilament, feet intact Psych Appearance: grossly normal Mental Status: mental status grossly normal Speech and movement: Normal speech and movement present Affect: normal affect Attitude: cooperative Thought process: Normal thought process present Thought content: Normal thought content present Insight: Good insight present (Psych) Judgement: Good judgement present (Psych) Results AMB Hemoglobin A1c AMB Hemoglobin A1c 8.3 % Last Edit by Phillip Beverly CMA on 03/24/24 13:11 Results Reviewed Results Reviewed: Laboratory Last Values Hgb A1c (Clinic) 8.3 % (4.0-6.0) H 03/24/24 13:10 Coding Level of Care Code Est Pt Level 3 (91600) Diagnoses Diabetic nephropathy associated with type 2 diabetes mellitus E11.21 Assessment & Plan Assessment & Plan (1) Diabetic nephropathy associated with type 2 diabetes mellitus: Code(s): E11.21 - Type 2 diabetes mellitus with diabetic nephropathy Category: Medical Plan: Labs ordered, increasing lantus from 40 to 45 units Plan The patient agreed to the use of a medical transcription supervisor for this encounter. Scribed for REGINA Sotelo by Marybeth Queen medical transcription supervisor, on 03/24/2024 at 12:50 EST. Orders: Orders Complete Blood Count Auto Diff Today E11.21 - Type 2 diabetes mellitus with diabetic nephropathy Comprehensive [place]. Panel Fast Today E11.21 - Type 2 diabetes mellitus with diabetic nephropathy UA CC w/rflx Micro + Cult Today E11.21 - Type 2 diabetes mellitus with diabetic nephropathy Microalbumin, Random (w Creat) Today E11.21 - Type 2 diabetes mellitus with diabetic nephropathy TSH reflex Free T4 Today E11.21 - Type 2 diabetes mellitus with diabetic nephropathy Lipid Panel Today E11.21 - Type 2 diabetes mellitus with diabetic nephropathy AMB Hemoglobin A1c Today Z13.9 - Encounter for screening, unspecified Medications: Changed From insulin glargine (Lantus Solostar U-100 Insulin) 40 units (0.4 mL) subcut QPM 30 mL 1RF To insulin glargine (Lantus Solostar U-100 Insulin) 45 units (0.45 mL) subcut QPM 30 mL 1RF
== END 2024-03-24 13:13 | disposition home or self-care (01) ==
PROVIDERS: PCP Nurse Practitioner Family; Visit Provider Nurse Practitioner Family
DX: Z13.9 Encounter for screening, unspecified (principal); E11.21 Type 2 diabetes mellitus with diabetic nephropathy

== ENCOUNTER → 2024-03-24 12:13 | Outpatient (BNVA) | payer OTHER, SELFPAY | PROVIDERS: PCP Nurse Practitioner Family; Visit Provider Nurse Practitioner Family | DX: E11.21 Type 2 diabetes mellitus with diabetic nephropathy (principal) | CPT/HCPCS: 83036; 99212 ==

== ENCOUNTER 2024-04-08 07:34 | Outpatient (AMB) | payer OTHER, SELFPAY ==
--- NOTE | 2024-04-08 07:48 | MHC.OFFVIS ---
Intake Visit Reasons: ov- b/l knee pain Intake Note: Areli a 63 year old female who presents today for a follow up of bilateral knee pain, 3rd Euflexxa injection on 07/27/23. Patient reports previous gel injections provided her with good relief and would like to repeat injections. Her pain in her left knee is the worse and is now radiating up her leg. She mentions having a recent fall about 4 days ago. She has a visible lump on her right knee. Finds very little relief with taking Tylenol, she finds better relief with taking Motrin however she does not like to take often due to her diabetes. Allergies hydrocortisone Allergy (Verified 03/24/24 12:21) Rash Medication List - Last Reconciled 04/08/24 by Michaelle Block PA-C acetaminophen 1,000 mg (2 x 500 mg) PO Q6H PRN albuterol sulfate 90 mcg/actuation (Ventolin HFA) 2 puffs inhalation Q4-6H PRN 30 days Alcohol Pads (alcohol swabs) 1 pad topically; NS aspirin 81 mg PO DAILY blood sugar diagnostic (FreeStyle Lite Strips) As directed 3 times a day blood-glucose meter (FreeStyle Lite Meter kit) diabetes tid testing blood-glucose sensor (FreeStyle Kaveh 3 Sensor device) tid testing cetirizine (All Day Allergy (cetirizine)) 10 mg PO DAILY cholecalciferol (vitamin D3) (Vitamin D3) 50 mcg PO DAILY cyclobenzaprine 5 mg PO TID PRN dulaglutide 4.5 mg (0.5 mL) subcut QWEEK ibuprofen 600 mg PO Q8H PRN ibuprofen 800 mg PO TID PRN insulin glargine (Lantus Solostar U-100 Insulin) 45 units (0.45 mL) subcut QPM irbesartan 75 mg PO DAILY metformin 1,000 mg PO BID metoprolol succinate ER 50 mg PO DAILY omeprazole 20 mg PO BID oxymetazoline 0.05% (Afrin (oxymetazoline)) 2 sprays intranasal Q12H PRN 3 days pen needle, diabetic (BD Ultra-Fine Elise Pen Needle) As directed to inject insulin daily rosuvastatin 40 mg PO DAILY HPI HPI ov- b/l knee pain: Details: 63-year-old female who returns to the office today for a follow-up of bilateral knee pain. She states she has pain in her bilateral knees that is worse on her left knee and now radiates up to her leg. She also reports she has a visible lump on her right knee. She mentions having a recent fall about 4 days ago. She finds minimal relief with Tylenol. She had her 3rd Euflexxa gel injection on 07/27/23 that provided her good relief. She would like to repeat the injections. She has a history of diabetes. Her sugar level was 95 this morning. 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 Maternal Grandfather Unknown family medical history Paternal Grandfather Unknown family medical history Paternal Grandmother Unknown family medical history Paternal Aunt Ovarian cancer Social History Housing: House Alcohol intake: current Patient Tobacco Use Status: Current everyday Tobacco user Tobacco use type: Cigarette Cigarettes Per Day: 2 Years Smoked: (onset 30yo, 1ppd x 32yrs, now 6-7cig/day, 30pyh) e-Cigarette/Vaping Use: Never Used Second Hand Smoke Exposure: No Current occupational status: unemployed and retired Cognitive needs: No Hearing needs: No Vision needs: No Review of Systems Const All systems reviewed & are unremarkable except as noted in HPI and below Physical Exam Extrem Other: Left knee: Skin intact, no erythema or joint effusion. Tenderness along the medial and lateral joint line. Full ROM with crepitus. Negative Augustine?s. No ligamentous laxity. NVI. Office Procedures AMB Joint Injection/Aspiration Joint Injection/Aspiration Primary Site: left knee Prep: site was prepped using aseptic technique, ethochloride spray was applied and injection warnings given Injected: 40 mg of, DepoMedrol, with 8 mL of, 1% plain lidocaine and in the joint Approach Used: anterolateral Procedure: The patient tolerated the procedure well and there was some relief with the local anesthesia Coding 61038 - Glenohumeral/Tronchanteric Bursa/Intraarticular Procedure code (CPT) selection complete Assessment & Plan Assessment & Plan (1) Osteoarthritis of left knee: Code(s): M17.12 - Unilateral primary osteoarthritis, left knee Category: Medical Qualifiers: Osteoarthritis type: primary Qualified Code(s): M17.12 - Unilateral primary osteoarthritis, left knee Plan We discussed options today, which include steroid injection. The patient did consent to move forward with the left knee injection, which was tolerated well. I recommended rest, ice, and elevation and OTC anti-inflammatories as needed for discomfort. We also discussed diabetes and the effect the steroid injection can have on their blood glucose levels; therefore, they will continue to monitor these very closely over the next 72 hours. If there are any concerns, they should report to the ED immediately She will also be preapproved for left knee Euflexxa gel injection as she did have significant relief in the past. . Orders: Orders XR knee RT 2V Today M25.569 - Pain in unspecified knee Coding Level of Care Code Est Pt Level 3 (58113) Complex EM visit Add On G2211 Diagnoses Primary osteoarthritis of left knee M17.12 Osteoarthritis type: primary CPT Codes Coding - Joint 7: 37989 - Glenohumeral/Tronchanteric Bursa/Intraarticular ([id number])
== END 2024-04-08 08:46 | disposition home or self-care (01) ==
LOC: HO.HOS 07:35
PROVIDERS: PCP Nurse Practitioner Family; Visit Provider Physician Assistant
DX: M17.12 Unilateral primary osteoarthritis, left knee (principal)
CPT/HCPCS: 20610; 99213

== ENCOUNTER 2024-04-08 07:34 | Outpatient (REF) | payer OTHER, SELFPAY | END 2024-04-08 07:35 | disposition home or self-care (01) | LOC: HO.HOSX 07:34 | PROVIDERS: PCP Nurse Practitioner Family; Visit Provider Physician Assistant | DX: M25.561 Pain in right knee (principal); M17.12 Unilateral primary osteoarthritis, left knee | CPT/HCPCS: 20610; 73560; 99212; J1010; J2003 ==

== ENCOUNTER 2024-04-15 09:57 | Outpatient (REF) | payer OTHER, SELFPAY ==
--- NOTE | ~2024-04-15 | MM_ITS ---
EXAMINATION: MM SCREENING DIGITAL BREAST TOMOSYNTHESIS, BILATERAL CLINICAL INFORMATION: Screening. Asymptomatic. COMPARISON: Mammography: Comparison is made with available priors TECHNIQUE: Digital breast mammography with tomosynthesis is performed in both the craniocaudal and mediolateral oblique views along with computer-aided detection (CAD). FINDINGS: The breasts are heterogeneously dense, which may obscure small masses (ACR BI-RADS breast composition Category c). There are no significant masses, abnormal calcifications, or other abnormalities. MM/MM tomosynthesis screening BI IMPRESSION: No mammographic evidence of malignancy. ASSESSMENT: BI-RADS BI-RADS 1 - Negative RECOMMENDATION: Routine annual mammography screening. 1 year F/U This examination should not preclude the clinical evaluation of a suspicious palpable abnormality. This patient's information was entered into a reminder system with a target due date for their next mammogram. Electronically signed by: Caren Cleaning DO 04/26/2024 10:57 AM LISANDRO
== END 2024-04-15 09:58 | disposition home or self-care (01) ==
LOC: HO.MAMMO 09:57
PROVIDERS: PCP Nurse Practitioner Family; Visit Provider Nurse Practitioner Family
DX: Z12.31 Encounter for screening mammogram for malignant neoplasm of breast (principal)
CPT/HCPCS: 77063; 77067

== ENCOUNTER → 2024-04-15 10:45 | Outpatient (BNV) | payer OTHER, SELFPAY | PROVIDERS: PCP Nurse Practitioner Family; Visit Provider Internal Medicine | DX: Z12.31 Encounter for screening mammogram for malignant neoplasm of breast (principal) | CPT/HCPCS: 77063; 77067 ==

== ENCOUNTER 2024-04-27 14:11 | Outpatient (AMB) | payer OTHER, SELFPAY ==
--- NOTE | 2024-04-27 14:16 | A.OFFVIS_ITS ---
Intake Visit Reasons: INJ- LT Knee Euflexxa#1 Intake Note: Areli a 64 year old female who presents today for a left knee Euflexxa injection #1. Allergies hydrocortisone Allergy (Verified 04/27/24 14:20) Rash HPI HPI INJ- LT Knee Euflexxa#1: Details: 64-year-old female who returns to the office today for a left knee Euflexxa gel injection #1. [facility], [facility] Medical History (Updated 03/25/24 @ 08:10 by Diana Montiel PA-C) CAD (coronary artery disease) HTN (hypertension) Dyslipidemia Diabetes type 2, uncontrolled Diabetic nephropathy associated with type 2 diabetes mellitus halfway (current) use of insulin Stable proliferative diabetic retinopathy History of endometrial cancer HPV (human papilloma virus) infection Nicotine dependence, cigarettes, uncomplicated Carpal tunnel syndrome of left wrist Cataracts, bilateral Osteoarthritis Vitamin D deficiency Obesity (BMI 30-39.9) Surgical History History of colonoscopy History of esophagogastroduodenoscopy (EGD) History of hysterectomy History of section History of surgery Family History Father Diabetes mellitus Myocardial infarction Mother Unknown family medical history Maternal Grandmother No problems noted. Maternal Grandfather Unknown family medical history Paternal Grandfather Unknown family medical history Paternal Grandmother Unknown family medical history Paternal Aunt Ovarian cancer Social History Housing: House Alcohol intake: current Patient Tobacco Use Status: Current everyday Tobacco user Tobacco use type: Cigarette Cigarettes Per Day: 2 Years Smoked: (onset 30yo, 1ppd x 32yrs, now 6-7cig/day, 30pyh) e-Cigarette/Vaping Use: Never Used Second Hand Smoke Exposure: No Current occupational status: unemployed and retired Cognitive needs: No Hearing needs: No Vision needs: No Review of Systems Const All systems reviewed & are unremarkable except as noted in HPI and below Physical Exam Extrem Other: Left knee: Skin intact, no erythema or joint effusion. Tenderness along the medial and lateral joint line. Full ROM with crepitus. Negative Augustine?s. No ligamentous laxity. NVI. Office Procedures AMB Joint Injection/Aspiration Joint Injection/Aspiration Details: #1 euflexxa Primary Site: left knee Prep: site was prepped using aseptic technique, ethochloride spray was applied and injection warnings given Injected: in the joint Approach Used: anterolateral Procedure: The patient tolerated the procedure well Coding 18296 - Glenohumeral/Tronchanteric Bursa/Intraarticular Procedure code (CPT) selection complete Assessment & Plan Assessment & Plan (1) Osteoarthritis of left knee: Code(s): M17.12 - Unilateral primary osteoarthritis, left knee Category: Medical Qualifiers: Osteoarthritis type: primary Qualified Code(s): M17.12 - Unilateral pr imary osteoarthritis, left knee Plan We discussed options today, which include Euflexxa gel injection. The patient did consent to move forward with the left knee Euflexxa gel injection #1, which was tolerated well. I recommended rest, ice, and elevation and OTC anti- inflammatories as needed for discomfort. she will return in 1 week for Euflexxa gel injection #2. Patient Instructions: Scribed for Michaelle Block PA-C, by Matty Moore biomedical engineering internship, on 04/27/2024 at 3:15 PM EST.? I, Michaelle Block PA-C, have personally reviewed and agree with the information entered by the scribe. Coding Level of Care Code Procedure Only Diagnoses Primary osteoarthritis of left knee M17.12 Osteoarthritis type: primary CPT Codes Coding - Joint 7: 89154 - Glenohumeral/Tronchanteric Bursa/Intraarticular ([id number])
== END 2024-04-27 14:25 | disposition home or self-care (01) ==
PROVIDERS: PCP Nurse Practitioner Family; Visit Provider Physician Assistant
DX: M17.12 Unilateral primary osteoarthritis, left knee (principal)
CPT/HCPCS: 20610

== ENCOUNTER → 2024-04-27 14:11 | Outpatient (BNVA) | payer OTHER, SELFPAY | PROVIDERS: PCP Nurse Practitioner Family; Visit Provider Physician Assistant | DX: M17.12 Unilateral primary osteoarthritis, left knee (principal) | CPT/HCPCS: 20610; J7323 ==

== ENCOUNTER 2024-05-04 13:21 | Outpatient (AMB) | payer OTHER, SELFPAY ==
--- NOTE | 2024-05-04 13:26 | A.OFFVIS_ITS ---
Intake Visit Reasons: INJ- LT knee Euflexxa #2 Intake Note: Areli a 64 year old female who presents today for a left knee Euflexxa injection #2. Allergies hydrocortisone Allergy (Verified 05/04/24 13:26) Rash Medication List - Last Reconciled 05/04/24 by Michaelle Block PA-C acetaminophen 1,000 mg (2 x 500 mg) PO Q6H PRN albuterol sulfate 90 mcg/actuation (Ventolin HFA) 2 puffs inhalation Q4-6H PRN 30 days Alcohol Pads (alcohol swabs) 1 pad topically; NS aspirin 81 mg PO DAILY blood sugar diagnostic (FreeStyle Lite Strips) As directed 3 times a day blood-glucose meter (FreeStyle Lite Meter kit) diabetes tid testing blood-glucose sensor (FreeStyle Kaveh 3 Sensor device) tid testing cetirizine (All Day Allergy (cetirizine)) 10 mg PO DAILY cholecalciferol (vitamin D3) (Vitamin D3) 50 mcg PO DAILY cyclobenzaprine 5 mg PO TID PRN dulaglutide 4.5 mg (0.5 mL) subcut QWEEK ibuprofen 600 mg PO Q8H PRN ibuprofen 800 mg PO TID PRN insulin glargine (Lantus Solostar U-100 Insulin) 45 units (0.45 mL) subcut QPM irbesartan 75 mg PO DAILY metformin 1,000 mg PO BID metoprolol succinate ER 50 mg PO DAILY omeprazole 20 mg PO BID oxymetazoline 0.05% (Afrin (oxymetazoline)) 2 sprays intranasal Q12H PRN 3 days pen needle, diabetic (BD Ultra-Fine Elise Pen Needle) As directed to inject insulin daily rosuvastatin 40 mg PO DAILY HPI HPI INJ- LT knee Euflexxa #2: Details: 64-year-old female who returns to the office today for a left knee Euflexxa gel injection #2. [facility] Medical History (Updated 03/25/24 @ 08:10 by Diana Montiel PA-C) CAD (coronary artery disease) HTN (hypertension) Dyslipidemia Diabetes type 2, uncontrolled Diabetic nephropathy associated with type 2 diabetes mellitus assisted (current) use of insulin Stable proliferative diabetic retinopathy History of endometrial cancer HPV (human papilloma virus) infection Nicotine dependence, cigarettes, uncomplicated Carpal tunnel syndrome of left wrist Cataracts, bilateral Osteoarthritis Vitamin D deficiency Obesity (BMI 30-39.9) Surgical History History of colonoscopy History of esophagogastroduodenoscopy (EGD) History of hysterectomy History of section History of surgery Family History Father Diabetes mellitus Myocardial infarction Mother Unknown family medical history Maternal Grandmother No problems noted. Maternal Grandfather Unknown family medical history Paternal Grandfather Unknown family medical history Paternal Grandmother Unknown family medical history Paternal Aunt Ovarian cancer Social History Housing: House Alcohol intake: current Patient Tobacco Use Status: Current everyday Tobacco user Tobacco use type: Cigarette Cigarettes Per Day: 2 Years Smoked: (onset 30yo, 1ppd x 32yrs, now 6-7cig/day, 30pyh) e-Cigarette/Vaping Use: Never Used Second Hand Smoke Exposure: No Current occupational status: unemployed and retired Cognitive needs: No Hearing needs: No Vision needs: No Review of Systems Const All systems reviewed & are unremarkable except as noted in HPI and below Physical Exam Extrem Other: Left knee: Skin intact, no erythema or joint effusion. Tenderness along the medial and lateral joint line. Full ROM with crepitus. Negative Augustine?s. No ligamentous laxity. NVI. Office Procedures AMB Joint Injection/Aspiration Joint Injection/Aspiration Details: euflexx #2 Primary Site: left knee Prep: site was prepped using aseptic technique, ethochloride spray was applied and injection warnings given Injected: in the joint Approach Used: anterolateral Procedure: The patient tolerated the procedure well Coding 70497 - Glenohumeral/Tronchanteric Bursa/Intraarticular Procedure code (CPT) selection complete Assessment & Plan Assessment & Plan (1) Osteoarthritis of left knee: Code(s): M17.12 - Unilateral primary osteoarthritis, left knee Category: Medical Qualifiers: Osteoarthritis type: primary Qualified Code(s): M17.12 - Unilateral primary osteoarthritis, left knee Plan We discussed options today, which include Euflexxa gel injection. The patient did consent to move forward with the left knee Euflexxa gel injection #2, which was tolerated well. I recommended rest, ice, and elevation and OTC anti-inflammatories as needed for discomfort. she will follow-up in 1 week for Euflexxa gel injection #3. Patient Instructions: Scribed for Michaelle Block PA-C, by Matty Moore medical office technician, on 05/04/2024 at 3:15 PM EST.? I, Michaelle Block PA-C, have personally reviewed and agree with the information entered by the scribe. Coding Level of Care Code Procedure Only Diagnoses Primary osteoarthritis of left knee M17.12 Osteoarthritis type: primary CPT Codes Coding - Joint 7: 80156 - Glenohumeral/Tronchanteric Bursa/Intraarticular ([id number])
== END 2024-05-04 14:50 | disposition home or self-care (01) ==
PROVIDERS: PCP Nurse Practitioner Family; Visit Provider Physician Assistant
DX: M17.12 Unilateral primary osteoarthritis, left knee (principal)
CPT/HCPCS: 20610

== ENCOUNTER → 2024-05-04 13:21 | Outpatient (BNVA) | payer OTHER, SELFPAY | PROVIDERS: PCP Nurse Practitioner Family; Visit Provider Physician Assistant | DX: M17.12 Unilateral primary osteoarthritis, left knee (principal) | CPT/HCPCS: 20610; J7323 ==

== ENCOUNTER 2024-05-06 08:19 | Outpatient (AMB) | payer OTHER, SELFPAY ==
--- NOTE | 2024-05-06 08:37 | MHC.OFFVIS ---
Vital Signs 05/06/24 08:38 Height 5 ft Weight 168 lb 10.458 oz BMI 32.9 BP 126/72 Blood Pressure Location Lt brachial Position Sitting Pulse 72 Pulse Source Pulse Oximeter Pulse Oximetry (%) 98 Oxygen Delivery Method Room Air Intake Visit Reasons: follow up/cm Intake Note: Patient last seen by Doctor Verito Yin on 03/15/24. Presents today for +TUAN follow up and test results. Allergies hydrocortisone Allergy (Verified 05/06/24 08:41) Rash Medication List - Last Reconciled 05/06/24 by Verito Yin MD acetaminophen 1,000 mg (2 x 500 mg) PO Q6H PRN albuterol sulfate 90 mcg/actuation (Ventolin HFA) 2 puffs inhalation Q4-6H PRN 30 days Alcohol Pads (alcohol swabs) 1 pad topically; NS aspirin 81 mg PO DAILY blood sugar diagnostic (FreeStyle Lite Strips) As directed 3 times a day blood-glucose meter (FreeStyle Lite Meter kit) diabetes tid testing blood-glucose sensor (FreeStyle Kaveh 3 Sensor device) tid testing cetirizine (All Day Allergy (cetirizine)) 10 mg PO DAILY cholecalciferol (vitamin D3) (Vitamin D3) 50 mcg PO DAILY cyclobenzaprine 5 mg PO TID PRN dulaglutide 4.5 mg (0.5 mL) subcut QWEEK ibuprofen 600 mg PO Q8H PRN ibuprofen 800 mg PO TID PRN insulin glargine (Lantus Solostar U-100 Insulin) 45 units (0.45 mL) subcut QPM irbesartan 75 mg PO DAILY metformin 1,000 mg PO BID metoprolol succinate ER 50 mg PO DAILY omeprazole 20 mg PO BID oxymetazoline 0.05% (Afrin (oxymetazoline)) 2 sprays intranasal Q12H PRN 3 days pen needle, diabetic (BD Ultra-Fine Elise Pen Needle) As directed to inject insulin daily rosuvastatin 40 mg PO DAILY HPI Comments Details: Patient returns for follow-up after completion of her diagnostic workup. She continues to feel about the same. Initial history: This is a 63-year-old female who presents for evaluation of bilateral hand pain, more severe on the left and associated positive TUAN. States that he has been having bilateral hand pain, especially at the PIP is and DIP is, especially the left hand most specifically the left 3rd PIP. She was referred by physiatry. She also had EMG/NCV which showed carpal tunnel syndrome. She was referred to hand surgery and surgery was discussed. Patient denies any skin rashes. Denies any unintentional fevers. She is unaware of any family history of an autoimmune rheumatic disease. She is unaware of any history of DVT/PE. Denies history of recurrent miscarriages. 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 Maternal Grandfather Unknown family medical history Paternal Grandfather Unknown family medical history Paternal Grandmother Unknown family medical history Paternal Aunt Ovarian cancer Social History Housing: House Alcohol intake: current Patient Tobacco Use Status: Current everyday Tobacco user Tobacco use type: Cigarette Cigarettes Per Day: 2 Years Smoked: (onset 30yo, 1ppd x 32yrs, now 6-7cig/day, 30pyh) e-Cigarette/Vaping Use: Never Used Second Hand Smoke Exposure: No Current occupational status: unemployed and retired Cognitive needs: No Hearing needs: No Vision needs: No Review of Systems Musc Reports arthralgias, Reports joint swelling, Reports limited range of motion and Reports stiffness Physical Exam Vital Signs: Last Vital Signs Pulse 72 05/06/24 08:38 BP 126/72 05/06/24 08:38 Pulse Ox 98 05/06/24 08:38 Oxygen Delivery Method Room Air 05/06/24 08:38 BMI result Body Mass Index 32.9 Const General: cooperative, healthy appearing and comfortable Nutritional Appearance: obese Orientation/consciousness: patient oriented x3 Limitations: no limitations HEENT Head: Yes normocephalic and Yes atraumatic Resp Effort & Inspection: normal respiratory effort and able to speak in complete sentences Skin General skin exam: no rashes or lesions noted Neuro General: patient oriented x3 Extrem Other: No wrist swelling or tenderness or pain with flexion-extension bilaterally There is mild generalized puffiness of hands and fingers Right hand without any tender or swollen joints Left hand few tender PIP is and DIP is. Especially left 3rd PIP Mildly reduced left finger contraction No flexor tendon tenderness bilaterally Normal nailfold capillaroscopy Assessment & Plan Assessment & Plan (1) Positive TUAN (antinuclear antibody): Code(s): R76.8 - Other specified abnormal immunological findings in serum Category: Medical Plan: This is a 64-year-old female who presents for evaluation of bilateral hand pain and swelling in the context of a positive TUAN 1-80 nucleolar pattern. Comprehensive serology for underlying autoimmune rheumatic disease is negative. I do not see any evidence of an underlying autoimmune rheumatic disease upon my evaluation Discussed with patient that about 20% of the population can have a positive TUAN with no underlying autoimmune rheumatic disease (2) Osteoarthritis of hands, bilateral: Code(s): M19.041 - Primary osteoarthritis, right hand; M19.042 - Primary osteoarthritis, left hand Category: Medical Qualifiers: Osteoarthritis type: primary Qualified Code(s): M19.041 - Primary osteoarthritis, right hand; M19.042 - Primary osteoarthritis, left hand Plan: Clinical picture consistent with bilateral hand osteoarthritis. Possible superimposed early diabetic cheiroarthropathy. Discussed management of hand osteoarthritis Can use Tylenol Arthritis, can use Voltaren gel Use systemic NSAIDs sparingly Referred patient to OT Follow-up as needed Plan I spent 16 minutes reviewing patient's chart, evaluating patient, counseling patient and documenting in the chart Orders: Orders OT Evaluation and Treatment Today M19.041 - Primary osteoarthritis, right hand, M19.042 - Primary osteoarthritis, left hand Coding Level of Care Code Est Pt Level 3 (19482) Diagnoses Positive UTAN (antinuclear antibody) R76.8 Primary osteoarthritis of both hands M19.041; M19.042 Osteoarthritis type: primary
[2024-05-06 08:38] VITALS: BP 126/72; PULSE 72; O2SAT 98; BMI 32.9
== END 2024-05-06 09:47 | disposition home or self-care (01) ==
PROVIDERS: PCP Nurse Practitioner Family; Visit Provider Student in an Organized Health Care Education/Training Program
DX: R76.8 Other specified abnormal immunological findings in serum (principal); M19.041 Primary osteoarthritis, right hand; M19.042 Primary osteoarthritis, left hand
CPT/HCPCS: 99213

== ENCOUNTER → 2024-05-06 08:19 | Outpatient (BNVA) | payer OTHER, SELFPAY | PROVIDERS: PCP Nurse Practitioner Family; Visit Provider Student in an Organized Health Care Education/Training Program | DX: M19.042 Primary osteoarthritis, left hand (principal); M19.041 Primary osteoarthritis, right hand; R76.8 Other specified abnormal immunological findings in serum | CPT/HCPCS: 99212 ==

== ENCOUNTER 2024-05-11 12:35 | Outpatient (AMB) | payer OTHER, SELFPAY ==
--- NOTE | 2024-05-11 13:16 | MHC.OFFVIS ---
Intake Visit Reasons: inj- LT knee Euflexxa #3 Allergies hydrocortisone Allergy (Verified 05/06/24 08:41) Rash Medication List - Last Reconciled 05/11/24 by Michaelle Block PA-C acetaminophen 1,000 mg (2 x 500 mg) PO Q6H PRN albuterol sulfate 90 mcg/actuation (Ventolin HFA) 2 puffs inhalation Q4-6H PRN 30 days Alcohol Pads (alcohol swabs) 1 pad topically; NS aspirin 81 mg PO DAILY blood sugar diagnostic (FreeStyle Lite Strips) As directed 3 times a day blood-glucose meter (FreeStyle Lite Meter kit) diabetes tid testing blood-glucose sensor (FreeStyle Kaveh 3 Sensor device) tid testing cetirizine (All Day Allergy (cetirizine)) 10 mg PO DAILY cholecalciferol (vitamin D3) (Vitamin D3) 50 mcg PO DAILY cyclobenzaprine 5 mg PO TID PRN dulaglutide 4.5 mg (0.5 mL) subcut QWEEK ibuprofen 600 mg PO Q8H PRN ibuprofen 800 mg PO TID PRN insulin glargine (Lantus Solostar U-100 Insulin) 45 units (0.45 mL) subcut QPM irbesartan 75 mg PO DAILY metformin 1,000 mg PO BID metoprolol succinate ER 50 mg PO DAILY omeprazole 20 mg PO BID oxymetazoline 0.05% (Afrin (oxymetazoline)) 2 sprays intranasal Q12H PRN 3 days pen needle, diabetic (BD Ultra-Fine Elise Pen Needle) As directed to inject insulin daily rosuvastatin 40 mg PO DAILY HPI HPI inj- LT knee Euflexxa #3: Details: 64-year-old female who returns to the office today for a left knee Euflexxa gel injection #3. 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 Maternal Grandfather Unknown family medical history Paternal Grandfather Unknown family medical history Paternal Grandmother Unknown family medical history Paternal Aunt Ovarian cancer Social History Housing: House Alcohol intake: current Patient Tobacco Use Status: Current everyday Tobacco user Tobacco use type: Cigarette Cigarettes Per Day: 2 Years Smoked: (onset 30yo, 1ppd x 32yrs, now 6-7cig/day, 30pyh) e-Cigarette/Vaping Use: Never Used Second Hand Smoke Exposure: No Current occupational status: unemployed and retired Cognitive needs: No Hearing needs: No Vision needs: No Review of Systems Const All systems reviewed & are unremarkable except as noted in HPI and below Physical Exam Extrem Other: Left knee: Skin intact, no erythema or joint effusion. Tenderness along the medial and lateral joint line. Full ROM with crepitus. Negative Augustine?s. No ligamentous laxity. NVI. Office Procedures AMB Joint Injection/Aspiration Joint Injection/Aspiration Details: left knee euflexxa #3 Primary Site: left knee Prep: site was prepped using aseptic technique, ethochloride spray was applied and injection warnings given Injected: in the joint Approach Used: anterolateral Procedure: The patient tolerated the procedure well Coding 50594 - Glenohumeral/Tronchanteric Bursa/Intraarticular Procedure code (CPT) selection complete Assessment & Plan Assessment & Plan (1) Osteoarthritis of left knee: Code(s): M17.12 - Unilateral primary osteoarthritis, left knee Category: Medical Qualifiers: Osteoarthritis type: primary Qualified Code(s): M17.12 - Unilateral primary osteoarthritis, left knee Plan We discussed options today, which include Euflexxa gel injection. The patient did consent to move forward with the left knee Euflexxa gel injection #3, which was tolerated well. I recommended rest, ice, and elevation and OTC anti-inflammatories as needed for discomfort. If symptoms persist or worsens over the next 6-8 weeks, patient will contact the office, otherwise follow-up as needed. Patient Instructions: Scribed for Michaelle Block PA-C, by Matty Moore medical records supervisor, on 05/11/2024 at 1:00 PM EST.? I, Michaelle Block PA-C, have personally reviewed and agree with the information entered by the scribe. Coding Level of Care Code Procedure Only Diagnoses Primary osteoarthritis of left knee M17.12 Osteoarthritis type: primary CPT Codes Coding - Joint 7: 31634 - Glenohumeral/Tronchanteric Bursa/Intraarticular ([id number])
== END 2024-05-11 13:31 | disposition home or self-care (01) ==
LOC: HO.HOS 12:35
PROVIDERS: PCP Nurse Practitioner Family; Visit Provider Physician Assistant
DX: M17.12 Unilateral primary osteoarthritis, left knee (principal)
CPT/HCPCS: 20610

== ENCOUNTER → 2024-05-11 12:35 | Outpatient (BNVA) | payer OTHER, SELFPAY | PROVIDERS: PCP Nurse Practitioner Family; Visit Provider Physician Assistant | DX: M17.12 Unilateral primary osteoarthritis, left knee (principal) | CPT/HCPCS: 20610; J7323 ==

== ENCOUNTER 2024-09-14 10:39 | Outpatient (AMB) | payer OTHER, SELFPAY ==
[2024-09-14 11:11] VITALS: BMI 32.1
--- NOTE | 2024-09-14 11:11 | A.OFFVIS_ITS ---
VS Expanded 09/14/24 11:11 Height 5 ft Weight 164 lb 3.91 oz BMI 32.1 Intake Visit Reasons: T2DM Allergies hydrocortisone Allergy (Verified 05/06/24 08:41) Rash Nutrition Presentation Details: Pt presents for MNT f/u for T2DM PT did not bring glucometer to this appt food frequency fruits 0-1/d dairy: 0-2x/wk fish 1/wk vex/wk starches 20/d beverages: water, diet soda, coffee, tea fried foods 1-2 x/month BS Monitoring Most Recent Diabetes Results: No Data to Display [facility] Medical History CAD (coronary artery disease) HTN (hypertension) Dyslipidemia Diabetes type 2, uncontrolled Diabetic nephropathy associated with type 2 diabetes mellitus retirement (current) use of insulin Stable proliferative diabetic retinopathy History of endometrial cancer HPV (human papilloma virus) infection Nicotine dependence, cigarettes, uncomplicated Carpal tunnel syndrome of left wrist Cataracts, bilateral Osteoarthritis Vitamin D deficiency Obesity (BMI 30-39.9) Surgical History History of colonoscopy History of esophagogastroduodenoscopy (EGD) History of hysterectomy History of section History of surgery Family History Father Diabetes mellitus Myocardial infarction Mother Unknown family medical history Maternal Grandmother No problems noted. Maternal Grandfather Unknown family medical history Paternal Grandfather Unknown family medical history Paternal Grandmother Unknown family medical history Paternal Aunt Ovarian cancer Social History Housing: House Alcohol intake: current Patient Tobacco Use Status: Current everyday Tobacco user Tobacco use type: Cigarette Cigarettes Per Day: 2 Years Smoked: (onset 30yo, 1ppd x 32yrs, now 6-7cig/day, 30pyh) e-Cigarette/Vaping Use: Never Used Second Hand Smoke Exposure: No Current occupational status: unemployed and retired Cognitive needs: No Hearing needs: No Vision needs: No Assessment & Plan Assessment & Plan (1) Diabetic nephropathy associated with type 2 diabetes mellitus: Code(s): E11.21 - Type 2 diabetes mellitus with diabetic nephropathy Category: Medical Plan: wt: 77 kg (07/2023), 74 kg (03/24), 09/23, 74 kg Est kcal needs as per MSJ: 1500- (40% carb, 30% protein/fat) Est fluid needs as per 30 ml/d: 2300 ml/d Est prot per day as per 1 g/kg bw: 77g/d Recommend fiber intake : 8-10 g per day and gradually increase to 25-28 g per day for women and 35-38 g for men or as tolerated Recommend sodium intake per day : less than 2000 mg Educated patient on: ( R = reviewed V = verbalizes understanding N/R = needs review N/A = not applicable * Food sources of carbohydrate, adequate serving sizes and its role in various health conditions: R ,V * Differences between complex carbohydrates a simple carbohydrates, role of fiber in diet: R ,V * Differences between types of fats and role in diet (mono on saturated fat fatty acids, saturated fatty acids, trans fats): R V * Food sources of sodium in salt and healthy modifications for heart health in kidney health: R * Healthy plate method concept: R V * Physical activity: Benefits a precaution: R V * Hypoglycemia protocol (rule of 15): V * Dietary prevention of Hyperglycemia: R V * Vitmain /mineral: Calcium sources of foods: R * monitor your blood sugar 2 hours after a meal (blood sugar goal less than 180 , 2 hours after the meal ): V Patient Instructions: Include calcium rich foods int he diet 6721-4363 mg/day Broccoli, figs, yogurt, sardines -see list of options and amount of calcium monitor blood sugar in the fasting and 2 hours after a meal as prescribed by your doctor - communicate with your doctor if blood sugar n the fasting state are above 130 and above 180 , 2 hours after meals for further evaluation Coding Level of Care Code Nutr Indiv Subseq (58502) Diagnoses Diabetic nephropathy associated with type 2 diabetes mellitus E11.21 Time Spent (min) 30
--- OUTSIDE RECORDS SUMMARY | 2024-09-14 12:36 | XMS_ITS | Clinical Summary ---
Author Organization [facility] Address [address] [place] [address] Care Team Providers Care Metal Bumper Name Role Phone Unavailable Primary Care Provider Unavailabl e Source Comments PLEASE NOTE, if this patient is a minor, it may be UNLAWFUL to discuss sensitive information that is contained in these records (such as FAMILY PLANNING, MENTAL HEALTH or SUBSTANCE ABUSE) with the minor patient's parent or other person without the patient's specific authorization.[facility] Immunizations Immunization Administration Dates Next Due Moderna COVID-19 Vaccine, re d cap blue label, 12+ Primary Series 09/18/2020,08/21/2020 Social History Tobacco Use Types Packs/Day Years Used Date Smoking Tobacco: Never Assessed Social Connections Answer Date Recorded Social Connections and Isolation 0 08/21/2020 Financial Resource Strain Answer Date R ecorded Financial Resource Strain 0 2020 Stress Answer Date Recorded Stress 0 08/21/2020 Physical Activity Answer Date Recorded Physical Activity 0 08/21/2020 Food Insecurity Answer Date Recorded Food 0 08/21/2020 Transportation Needs Answer Date Record ed Transportation 0 08/21/2020 Housing Stability Answer Date Recorded Housing 0 08/21/2020 Safety and Environment Answer Date Ran rded Safety 0 08/21/2020 Utilities Answer Date Recorded Utilities 0 08/21/2020 Employment Answer Date Recorded Employment 0 08/21/2020 Comments Unknown Sex and Gender Information Value Date Recorded Sex Assigned at Not on file Legal Sex Female 10:45 AM PDT Gender Identity Not on file Sexual Orientation Not on file Plan of Treatment Health Maintenance Due Date Last Done Comments Anxiety Screening 1960 Diabetes Screening 1960 HPV Screening 1960 Hepatitis C Screening 1960 Lipid Screening 1960 Pap + HPV 1960 Tobacco Screening 1960 HIV Screening 1975 Hypertension Screening (#1) 1978 Medicare Annual Wellness Visit 1978 Imm-DTaP/Tdap/Td (1 - Tdap) 1979 Cervical Cancer Screening 1981 Pap Smear 1981 Breast Cancer Screening (Mammogram) 2000 CT Colonography 2005 Colonoscopy 2005 Colorectal Cancer Screening 2005 FIT/gFOBT 2005 Fecal DNA 2005 Flexible Sigmoidoscopy 2005 Imm-Zoster, Recombinant (1 of 2) 2010 [id number] ( season) 2024 021, 08/21/2020 Imm-Influenza (#1) 2024 02/23/2019, 1 , 02/14/2016 Alcohol and Drug Screen 06/01/2024 Depression Annual Screen 06/01/2024 Cervical Ablation/Cold-Knife Conization Discontinued Cervical Cryotherapy Discontinued Colposcopy Discontinued Endometrial Biopsy Discontinued Excision/Leep Discontinued HPV Genotyping Discontinued Vaginal Pap Discontinued Vulvoscopy Discontinued Insurance [facility] Member Subscriber Plan / Payer (Ef fective 2013-Present) Name:Areli Melgar Relation to Subscriber:Self Name:Areli Melgar Payer ID:[id number] Group ID:Not on file Type:Indemnity Address: [place] [address]
--- OUTSIDE RECORDS SUMMARY | 2024-09-14 12:36 | XMS_ITS | Clinical Summary ---
Author Organization [address] [facility] Address [address] [place] [address] Phone Care Team Providers Care Clinical Tech Name Role Phone Nahum Camarena NP Primary Care Provider Allergies Active Allergy Reactions Criticality Noted Date Comments Hydrocortisone 11/26/2023 Medications cetirizine (ZyrTEC) 10 mg tablet Take 1 tablet (10 mg total) by mouth 1 (one) time each day. Active irbesartan (AVAPRO) 75 mg tablet Take 1 tablet (75 mg total) by mouth 1 (one) time each day. Active metFORMIN (GLUCOPHAGE) 1,000 mg tablet Take 1 tablet (1,000 mg total) by mouth 2 (two) times a day with meals. Active dulaglutide (TRULICITY) 1.5 mg/0.5 mL pen injector injection Inject under the skin. Active naratriptan (AMERGE) 1 mg tablet Take 1 tablet (1 mg total) by mouth 1 (one) time if needed for migraine. Can repeat once after 4 hours if needed. Max 2 tabs/24hrs. Active NON FORMULARY Take 1 tablet by mouth 4 (four) times a day if needed. butalbital-a spirin-caffe ine (BUTALBITAL COMPOUND/ASA ) per tablet Active ondansetron ODT (ZOFRAN-ODT) 4 mg disintegrating tablet Dissolve 1 tablet (4 mg total) on top of the tongue every 8 (eight) hours if needed. Active famotidine (PEPCID) 20 mg tablet Take 1 tablet (20 mg total) by mouth 2 (two) times a day. Active cholecalciferol (VITAMIN D-3) 50 mcg (2,000 unit) tablet Take by mouth 1 (one) time each day. Active predniSONE (DELTASONE) 20 mg tablet Take 1 tablet (20 mg total) by mouth 1 (one) time each day. DIRECTED Active metFORMIN (GLUMETZA) 1,000 mg 24 hr tablet Take 1 tablet (1,000 mg total) by mouth 2 (two) times a day. Do not crush, chew, or split. Active ASPIRIN ORAL Take 81 mg by mouth 1 (one) time each day. Active insulin lispro 100 unit/mL injection Inject 25 Units under the skin 3 (three) times a day before meals. Active insulin glargine (LANTUS) 100 unit/mL injection Inject 70 Units under the skin at bedtime. Active Active Problems Problem Noted Date Diagnosed Date Asthma 03/21/2024 Heartburn 03/21/2024 Migraines 03/21/2024 Obese 03/21/2024 Condition not found 05/04/2013 Overview (03/21/2024): Diabetes mellitus type 2, uncontrolled Surgical History Surgery Date Site/Laterality Comments OTHER SURGICAL HISTORY PROCEDURE: HISTORICAL TOTAL HYSTERECTOMY W/O BSO SECTION PROCEDURE: [place] DELIVERY ONLY; COMMENT: x2 LEG SURGERY PROCEDURE: HISTORICAL LEG SURGERY; COMMENT: left leg was short Family History Medical History Relation Name Comments Diabetes Father Relation Name Status Comments Father Social History Tobacco Use Types Packs/Day Years Used Date Smoking Tobacco: Every Day Cigarettes Smokeless Tobacco: Never Alcohol Use Standard Drinks/Week Comments No 0 (1 standard drink = 0.6 oz pur e alcohol) Comments Unknown Sex and Gender Information Value Date Recorded Sex Assigned at Not on file Legal Sex Female 12:21 AM EST Gender Identity Not on file Sexual Orientation Not on file Obstetrics History Last Filed Vital Signs Vital Sign Reading Time Taken Comments Blood Pressure - - Pulse - - Temperature - - Respiratory Rate - - Oxygen Saturation - - Inhaled Oxygen Concentration - - Weight 77.6 kg (171 lb) 11/26/2023 12:20 PM EDT Height 152.4 cm (5') 11/26/2023 12:20 PM EDT Body Mass Index 33.4 11/26/2023 12:20 PM EDT Plan of Treatment Upcoming Encounters Date Type Department Care Team ([facility] st Contact Info) Description 12/12/2024 10:15 AM EDT Office Visit Orthopedic Surgery - [place] [address] [facility] [address] [place] [phone] Dontrell Barron, DPM [address] [facility] [address] [place] [address] Health Maintenance Due Date Last Done Comments Breast Cancer Screening 1960 DTaP,Tdap,and Td Vaccines (1 - Tdap) 1979 Pneumococcal Vaccine: 50+ Ye ars (1 of 2 - PCV) 1979 Pneumococcal Vaccine: Pediat rics (0 to 5 Years) and At-Risk Patients (6 to 64 Years) (1 of 2 - PCV) 1979 Cervical Cancer Screening: P ap Smear 1981 Zoster Vaccines (1 of 2) 2010 RSV Immunization Adult Patie nts (1 - Risk 60-74 years 1-dose series) 2020 Cholesterol Screening (Lipid Panel) 12/29/2023 Colorectal Cancer Screening: Colonoscopy 12/29/2023 Depression Screening 12/29/2023 HIV Screening 12/29/2023 Hepatitis C Screening 12/29/2023 Social Influencers of Health Screening 12/29/2023 COVID-19 Vaccine (2023-2 5 season) 2024 Influenza Vaccine (Season Ended) 2025 HIB Vaccines Aged Out No longer eligi ble based on patient's age to complete this topic HPV Vaccines Aged Out No longer eligi ble based on patient's age to complete this topic Hepatitis A Vaccines Aged Out No long er eligible based on patient's age to complete this topic Hepatitis B Vaccines Aged Out No long er eligible based on patient's age to complete this topic IPV Vaccines Aged Out No longer eligi ble based on patient's age to complete this topic MMR Vaccines Aged Out No longer eligi ble based on patient's age to complete this topic Meningococcal ACWY Vaccine Aged Out N o longer eligible based on patient's age to complete this topic Meningococcal B Vaccine Aged Out No l onger eligible based on patient's age to complete this topic RSV Immunization Patients Un ruddy 20 months Aged Out No longer eligible b ased on patient's age to complete this topic Varicella Vaccines Aged Out No longer eligible based on patient's age to complete this topic Care Teams Clinical Tech Relationship Specialty Start Date End Date Nahum Camarena NP [address] [facility] [place], [place] PCP - General 08/20/23
--- OUTSIDE RECORDS SUMMARY | 2024-09-14 12:36 | XMS_ITS | Clinical Summary ---
Author Organization [facility] Address [address] [place] [address] Care Team Providers Care Chromosomal Disorders Counselor Name Role Phone DarreljesusNahum NP Primary Care Provider [phone] Family History Relation Status Comments Father Unknown Mother Unknown Social History Tobacco Use Types Packs/Day Years Used Date Smoking Tobacco: Every Day Alcohol Use Standard Drinks/Week Comments No 0 (1 standard drink = 0.6 oz pur e alcohol) Comments Unknown Sex and Gender Information Value Date Recorded Sex Assigned at Not on file Legal Sex Female 5:10 PM EST Gender Identity Not on file Sexual Orientation Not on file Plan of Treatment Health Maintenance Due Date Last Done Comments Breast Cancer Screening 1960 Pneumococcal Vaccine: 50+ Ye ars (1 of 2 - PCV) 1979 Colorectal Cancer Screening: Annual FOBT 2009 Colorectal Cancer Screening: Colonoscopy 2009 Colorectal Cancer Screening: Sigmoidoscopy 2009 Influenza Vaccine (Season Ended) 2025 Hepatitis B Vaccine Aged Out No longe r eligible based on patient's age to complete this topic Insurance [facility] One Care Dual SNP ([id number]) [facility] One Care Dual SNP ([id number]) [place] [id number] Care Teams Chromosomal Disorders Counselor Relationship Specialty Start Date End Date Nahum Camarena NP [address] [place] [address] PCP - General Nurse Practitioner 07/09/22
== END 2024-09-14 11:41 | disposition home or self-care (01) ==
LOC: HO.ENCR 10:40
PROVIDERS: PCP Nurse Practitioner Family; Visit Provider Dietitian, Registered
DX: E11.21 Type 2 diabetes mellitus with diabetic nephropathy (principal)

== ENCOUNTER → 2024-09-14 10:39 | Outpatient (BNVA) | payer OTHER, SELFPAY | PROVIDERS: PCP Nurse Practitioner Family; Visit Provider Dietitian, Registered | DX: E11.21 Type 2 diabetes mellitus with diabetic nephropathy (principal) | CPT/HCPCS: 97803 ==

== ENCOUNTER 2024-11-07 09:52 | Outpatient (AMB) | payer OTHER, SELFPAY ==
--- NOTE | 2024-11-07 09:51 | AM.OFFWIN_ITS ---
Intake Vital Signs 3 11/07/24 09:59 Weight 163 lb BP 126/58 L Blood Pressure Location Lt brachial Position Sitting Pulse 76 Pulse Source Pulse Oximeter Temp 97.6 F Temp Source Oral Pulse Oximetry (%) 98 Oxygen Delivery Method Room Air Intake Visit Reasons: EP-rt under breast lump Intake Note: Pt is concerned about hard lump right under right breast. Patient Tobacco Use Status: Current everyday Tobacco user Accompanied by: Self / Same As Patient Allergies hydrocortisone Allergy (Verified 11/07/24 09:57) Rash HPI HPI Comments 2 History of Present Illness0 Details 64 y/o Female patient who presents to [facility] walk in clinic with c/o Small Non-tender lump/mass on right breast underneath x 1-2 weeks. Previous Mammo 04/2024 WNL - no prior h/o Breast CA. Denies any h/o breast lumps/masses or cysts. [facility] Medical History (Updated 11/07/24 @ 10:23 by Sugar Kruse NP) Lump of right breast CAD (coronary artery disease) HTN (hypertension) Dyslipidemia Diabetes type 2, uncontrolled Diabetic nephropathy associated with type 2 diabetes mellitus [facility] (current) use of insulin Stable proliferative diabetic retinopathy History of endometrial cancer HPV (human papilloma virus) infection Nicotine dependence, cigarettes, uncomplicated Carpal tunnel syndrome of left wrist Cataracts, bilateral Osteoarthritis Vitamin D deficiency Obesity (BMI 30-39.9) Surgical History History of colonoscopy History of esophagogastroduodenoscopy (EGD) History of hysterectomy History of section History of surgery Family History Father Diabetes mellitus Myocardial infarction Mother Unknown family medical history Maternal Grandmother No problems noted. Maternal Grandfather Unknown family medical history Paternal Grandfather Unknown family medical history Paternal Grandmother Unknown family medical history Paternal Aunt Ovarian cancer Social History Housing: House Alcohol intake: current Patient Tobacco Use Status: Current everyday Tobacco user Tobacco use type: Cigarette Cigarettes Per Day: 2 Years Smoked: (onset 30yo, 1ppd x 32yrs, now 6-7cig/day, 30pyh) e-Cigarette/Vaping Use: Never Used Second Hand Smoke Exposure: No Current occupational status: unemployed and retired Cognitive needs: No Hearing needs: No Vision needs: No Review of Systems Const All systems reviewed & are unremarkable except as noted in HPI and below Physical Exam Vital Signs: Last Vital Signs Temp 97.6 F 11/07/24 09:59 Pulse 76 11/07/24 09:59 BP 126/58 L 11/07/24 09:59 Pulse Ox 98 11/07/24 09:59 Oxygen Delivery Method Room Air 11/07/24 09:59 Const General: no acute distress Nutritional Appearance: overweight Orientation/consciousness: patient oriented x3 Chest Chest/axillae images: 2 1. Small ~ 1 inch in size, Soft fixed Non-tender lump located at between 6 & 7 O'clock regions. Neuro General: patient oriented x3, gait normal and moves all extremities Psych Speech and movement: Normal speech and movement present Assessment & Plan Assessment & Plan (1) Lump of right breast: Code(s): N63.10 - Unspecified lump in the right breast, unspecified quadrant Qualifiers: Breast mass location: unspecified quadrant Qualified Code(s): N63.10 - Unspecified lump in the right breast, unspecified quadrant Plan: Ordered Diagnostic US and Mammo right breast DDx's: Benign Breast sebaceous Cyst vs Lump. Orders: Orders 2 US breast RT complete Today N63.10 - Unspecified lump in the right breast, unspecified quadrant MM diagnostic mammo unilat RT Today N63.10 - Unspecified lump in the right breast, unspecified quadrant Coding Level of Care Code Est Pt Level 4 (31209) Diagnoses Mass of right breast, unspecified quadrant N63.10 Breast mass location: unspecified quadrant Time Spent (min) 20
[2024-11-07 09:59] VITALS: BP 126/58; PULSE 76; TEMP 36.4; O2SAT 98
--- OUTSIDE RECORDS SUMMARY | 2024-11-07 10:40 | XMS_ITS | Clinical Summary ---
Author Organization [facility] Address [address] [place] [address] Care Team Providers Care Import Manager Name Role Phone DarreljesusNahum NP Primary Care Provider [phone] Family History Relation Status Comments Father Unknown [...] age to complete this topic Insurance [facility] One Care Dual SNP ([id number]) [facility] One Care Dual SNP ([id number]) [place] [id number] Care Teams Import Manager Relationship Specialty Start Date End Date Nahum Camarena NP [address] [place] [address] PCP - General Nurse Practitioner 07/09/22
== END 2024-11-07 10:24 | disposition home or self-care (01) ==
PROVIDERS: PCP Nurse Practitioner Family; Visit Provider Nurse Practitioner Family
DX: N63.10 Unspecified lump in the right breast, unspecified quadrant (principal)

== ENCOUNTER → 2024-11-07 09:52 | Outpatient (BNVA) | payer OTHER, SELFPAY | PROVIDERS: PCP Nurse Practitioner Family | DX: N63.10 Unspecified lump in the right breast, unspecified quadrant (principal) | CPT/HCPCS: 99212 ==

== ENCOUNTER 2024-12-01 13:07 | Outpatient (AMB) | payer OTHER, SELFPAY ==
--- OUTSIDE RECORDS SUMMARY | 2024-12-01 13:14 | XMS_ITS | Clinical Summary ---
Author Organization [facility] Facility Address [address] [place] [address] Care Team Providers Care Billet Recorder Name Role Phone DarreljesusNahum NP Primary Care Provider [phone] Family History Relation Status Comments Father Unknown [...] patient's age to complete this topic Insurance [facility] One Care Dual SNP ([id number]) [facility] One Care Dual SNP ([id number]) [place] [id number] Care Teams Billet Recorder Relationship Specialty Start Date End Date Nahum Camarena NP [address] [place] [address] PCP - General Nurse Practitioner 07/09/22
--- OUTSIDE RECORDS SUMMARY | 2024-12-01 13:14 | XMS_ITS | Clinical Summary ---
Author Organization [address] [facility] Address [address] [place] [address] Phone Care Team Providers Care Transportation Escort Name Role Phone Nahum Camarena NP Primary [...] HISTORICAL TOTAL HYSTERECTOMY W/O BSO SECTION PROCEDURE: [place] DELIVERY ONLY; COMMENT: x2 LEG SURGERY PROCEDURE: [...] Upcoming Encounters Date Type Department Care Team ([facility] st Contact Info) Description 12/12/2024 10:15 AM EDT Office Visit Orthopedic Surgery - [place] [address] [facility] [address] [place] [phone] Dontrell Barron, DPM [address] [facility] [address] [place] [address] Health Maintenance Due Date Last Done Comments [...] age to complete this topic Care Teams Transportation Escort Relationship Specialty Start Date End Date Nahum Camarena NP [address] [facility] [place], [place] PCP - General 08/20/23
--- OUTSIDE RECORDS SUMMARY | 2024-12-01 13:14 | XMS_ITS | Clinical Summary ---
Author Organization [facility] Address [address] [place] [address] Care Team Providers Care Chemical Production Machine Operator Name Role Phone Unavailable Primary Care Provider [...] 2005 Imm-Zoster, Recombinant (1 of 2) 2010 [id number] ( season) 2024 021, 08/21/2020 Imm-Influenza (#1) 2024 02/23/2019, 1 , 02/14/2016 Alcohol and Drug Screen 06/01/2024 Depression Annual Screen 06/01/2024 Cervical Ablation/Cold-Knife Conization Discontinued Cervical Cryotherapy Discontinued Colposcopy Discontinued Endometrial Biopsy Discontinued Excision/Leep Discontinued HPV Genotyping Discontinued Vaginal Pap Discontinued Vulvoscopy Discontinued Insurance [facility]
--- NOTE | 2024-12-01 13:16 | A.OFFPC_ITS ---
Vital Signs 12/01/24 13:19 Height 5 ft Weight 168 lb BMI 32.8 BP 130/70 Blood Pressure Location Lt brachial Position Sitting Pulse 83 Pulse Source Pulse Oximeter Pulse Oximetry (%) 98 Intake Visit Reasons: Annual PE Extraction Operator Required: No Accompanied by: Self / Same As Patient Allergies hydrocortisone Allergy (Verified 12/01/24 13:19) Rash Tobacco use date assessed: 12/01/24 Fall risk assessment: No Falls in past year Last assessed Fall Risk: 12/01/24 Dental Screening Dental Screen Date: 12/01/24 Did you have a dental visit in the last 12 months?: Yes Did you have a dental problem in the last 6 months where you did not have access to dental care?: No Was dental information given to patient?: Patient has dentist HPI Annual PE HPI Details History of Present Illness The patient is a 64-year-old female presenting for a physical exam and management of diabetes mellitus. She reports improved glycemic control since modifying her diet by reducing carbohydrate intake, with blood glucose levels now ranging between 100 to 130 mg/dL. The patient has a history of a breast lesion on the right side, for which a mammogram is scheduled this month. The lesion is located on the inferior aspect of the right breast. She is a smoker and is due for a repeat low dose CT scan of the lungs, with the last scan conducted in July 2022. The patient denies any chest pain, dyspnea, hemoptysis, or gastrointestinal symptoms such as constipation or diarrhea. Health Maintenance - Annual eye exams encouraged - Bone density screening is up to date - Scheduled mammogram for breast lesion evaluation - Repeat low dose CT scan for lung cance r screening due -colon screen is up to date Social History - Tobacco use: Patient is a smoker Review of Systems - General: Reports feeling well - Cardiovascular: Denies chest pain - Respiratory: Denies dyspnea - Gastrointestinal: Denies blood in stoo l, constipation, diarrhea - Genitourinary: Denies urinary issues Physical Exam General: Cooperative, healthy appearing, comfortable, no acute distress and well developed Orientation: Patient oriented x3 Limitations: No limitations Head: Normal to inspection Ears: Hearing grossly normal bilaterally Nose: Normal external nose present Face and sinus: Normal facial exam Eyes: Appearance normal, both eyes and all related structures Neck: Normal visual inspection and Yes full ROM Respiratory: Normal respiratory effort and able to speak in complete sentences. Clear to auscultation bilaterally Cardiovascular: Regular rate and rhythm. Normal S1 and S2, right carotid bruit noted GI: Normal to inspection. Soft to palpation and nontender Skin: No rashes or lesions noted Neuro: Patient oriented x3 Extremities: Normal to inspection Results Plan The patient will continue to manage her diabetes mellitus through dietary modifications, focusing on reducing carbohydrate intake to maintain blood glucose levels within the target range. An A1c test and microalbumin test have been added to her lab work to assess her glycemic control and kidney function. A mammogram is scheduled to evaluate the breast lesion on the right side, specifically located on the inferior aspect of the breast. The patient is advised to follow up with the results to determine any further necessary interventions. Due to her smoking history, a repeat low dose CT scan of the lungs is planned to monitor for any potential lung pathology. The patient is encouraged to consider smoking cessation to reduce her risk of lung disease. sending nicotine gum Patient Instructions - Continue dietary modifications to [place] Spill Control ge blood sugar levels, follows up with endo in the fall - Follow up on mammogram results for racquel ast lesion evaluation. - Schedule and attend repeat low dose CT scan for lung screening. - Consider smoking cessation to improve lung health. 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 Maternal Grandfather Unknown family medical history Paternal Grandfather Unknown family medical history Paternal Grandmother Unknown family medical history Paternal Aunt Ovarian cancer Social History Housing: House Alcohol intake: current Patient Tobacco Use Status: Current everyday Tobacco user Tobacco use type: Cigarette Cigarettes Per Day: 2 Years Smoked: (onset 30yo, 1ppd x 32yrs, now 6-7cig/day, 30pyh) e-Cigarette/Vaping Use: Never Used Second Hand Smoke Exposure: No Current occupational status: unemployed and retired Cognitive needs: No Hearing needs: No Vision needs: No Questionnaire Thrive Questionnaire Date Thrive assessed: 12/01/24 I am a: Patient What is your living situation today?: I have a steady place to live Within the past 12 months, did the food you bought not last and you didn't have the money to get more?: Never true Within the past 12 months, did you worry whether your food would run out before you got money to buy more?: Never true Do you have trouble paying for medicines?: No Do you have trouble getting transportation to medical appointments?: No Do you have trouble paying your heating and electricity bill?: No Do you have trouble taking care of your child, family member or friend?: No Do you have trouble with day-to-day activities such as bathing, preparing meals, shopping, managing finances, etc.?: No Are you currently unemployed and looking for a job?: No Are you interested in more education?: No Please select the resources that you would like help with: None Currently or been in a relationship where the following occur: No concerns reported THRIVE Score: 0 AUDIT C Alcohol Use Questionnaire (AUDIT-C) 1. How often do you have a drink containing alcohol?: Never 3. How often do you have six or more drinks on one occasion?: Never Total Score: 0 Score Reviewed/Action Taken: Yes RUDOLPH-7 AMB Questionnaire RUDOLPH-7 Date RUDOLPH - 7 assessed: 12/01/24 Feeling nervous, anxious, or on edge: 0 = Not at all Not being able to stop or control worryin = Not at all Worrying too much about different things: 0 = Not at all Trouble relaxin = Not at all Being so restless that it is hard to sit still: 0 = Not at all Becoming easily annoyed or irritable: 0 = Not at all Feeling afraid as if something awful might happen: 0 = Not at all Total RUDOLPH-7 score (0-4 normal; 5-9 mild; 10-14 moderate; 15-21 severe): 0 Source: Developed by Drs. Bryson Roca, Siri Ray, Jay Simms and colleagues, with an educational toby from [employer] RUDOLPH-7 Assessment Billing RUDOLPH-7 Assessment Tool: RUDOLPH-7 Assessment 52808 Physical exam (Primary Care) Vital Signs: Last Vital Signs Pulse 83 12/01/24 13:19 BP 130/70 12/01/24 13:19 Pulse Ox 98 12/01/24 13:19 BMI result Body Mass Index 32.8 Tobacco/Smoking Status: Tobacco use Status Tobacco use date assessed 12/01/24 12/01/24 13:22 Patient Tobacco Use Status Current everyday Tobacco 12/01/24 13:18 Tobacco use type Cigarette 12/01/24 13:18 e-Cigarette/Vaping Use Never Used 12/01/24 13:18 Thrive Assessment: Date of Thrive Assessment Date Thrive assessed 12/01/24 12/01/24 13:18 Currently or been in a relationship where the following occur: No concerns reported Coding Level of Care Code Est Pt Level 3 (37577) Est Pt Prev Care 40-64y(31409) Diagnoses Diabetes type 2, uncontrolled E11.65 Carotid bruit R09.89 CAD (coronary artery disease) I25.10 Nicotine dependence, cigarettes, uncomplicated F17.210 Encounter for routine adult physical exam with abnormal findings Z00.01 Additional Codes RUDOLPH-7 Assessment Billing - RUDOLPH-7 Assessment Tool: RUDOLPH-7 Assessment 59590 ([id number]) Assessment & Plan Assessment & Plan (1) Diabetes type 2, uncontrolled: Code(s): E11.65 - Type 2 diabetes mellitus with hyperglycemia Category: Medical (2) Carotid bruit: Code(s): R09.89 - Other specified symptoms and signs involving the circulatory and respiratory systems Category: Medical (3) CAD (coronary artery disease): Code(s): I25.10 - Atherosclerotic heart disease of [place] coronary artery without angina pectoris Category: Medical (4) Nicotine dependence, cigarettes, uncomplicated: Comment: (current smoker - onset 30yo, 1ppd x 33yrs, now 6-7cig/day - 30pyh) Code(s): F17.210 - Nicotine dependence, cigarettes, uncomplicated Category: Medical (5) Encounter for routine adult physical exam with abnormal findings: Code(s): Z00.01 - Encounter for general adult medical examination with abnormal findings Category: Medical Plan . Orders: Orders UA CC w/rflx Micro + Cult Today E11.65 - Type 2 diabetes mellitus with hyperglycemia Microalbumin, Random (w Creat) Today E11.65 - Type 2 diabetes mellitus with hyperglycemia US carotid duplex BI Today I25.10 - Atherosclerotic heart disease of [place] coronary artery without angina pectoris, R09.89 - Other specified symptoms and signs involving the circulatory and respiratory systems Complete Blood Count Auto Diff Today E11.65 - Type 2 diabetes mellitus with hyperglycemia Comprehensive [place]. Panel Fast Today E11.65 - Type 2 diabetes mellitus with hyperglycemia TSH reflex Free T4 Today E11.65 - Type 2 diabetes mellitus with hyperglycemia Lipid Panel Today E11.65 - Type 2 diabetes mellitus with hyperglycemia Hemoglobin A1c Today E11.65 - Type 2 diabetes mellitus with hyperglycemia Medications: New nicotine (polacrilex) 4 mg buccal Q2H 100 ea 3RF Refilled ibuprofen 600 mg PO Q8H PRN 45 tabs 0RF pain
[2024-12-01 13:19] VITALS: BP 130/70; PULSE 83; O2SAT 98; BMI 32.8
== END 2024-12-01 14:28 | disposition home or self-care (01) ==
LOC: HO.HMCC 13:08
PROVIDERS: PCP Nurse Practitioner Family; Visit Provider Nurse Practitioner Family
DX: Z00.01 Encounter for general adult medical examination with abnormal findings (principal); E11.65 Type 2 diabetes mellitus with hyperglycemia; R09.89 Other specified symptoms and signs involving the circulatory and respiratory systems; I25.10 Atherosclerotic heart disease of native coronary artery without angina pectoris; F17.210 Nicotine dependence, cigarettes, uncomplicated

== ENCOUNTER → 2024-12-01 13:07 | Outpatient (BNVA) | payer OTHER, SELFPAY | PROVIDERS: PCP Nurse Practitioner Family; Visit Provider Nurse Practitioner Family | DX: Z00.01 Encounter for general adult medical examination with abnormal findings (principal); E11.65 Type 2 diabetes mellitus with hyperglycemia; R09.89 Other specified symptoms and signs involving the circulatory and respiratory systems; I25.10 Atherosclerotic heart disease of native coronary artery without angina pectoris; F17.210 Nicotine dependence, cigarettes, uncomplicated | CPT/HCPCS: 96127; 99212; 99396 ==

== ENCOUNTER 2024-12-05 08:46 | Outpatient (REF) | payer OTHER, SELFPAY ==
--- OUTSIDE RECORDS SUMMARY | 2024-12-05 08:59 | XMS_ITS | Clinical Summary ---
Author Organization [facility] Facility Address [address] [place] [address] Care Team Providers Care Well Services Operator Name Role Phone Darreljesus Nahum WINTERS Primary Care Provider [phone] Family History Relation Status Comments Father Unknown [...] Colorectal Cancer Screening: Sigmoidoscopy 2009 Influenza Vaccine (#1) 2025 Hepatitis B Vaccine Aged Out No longe r eligible based on patient's age to complete this topic Insurance [facility] One Care Dual SNP ([id number]) [facility] One Care Dual SNP ([id number]) [place] [id number] Care Teams Well Services Operator Relationship Specialty Start Date End Date Nahum Camarena NP [address] [place] [address] PCP - General Nurse Practitioner 07/09/22
--- OUTSIDE RECORDS SUMMARY | 2024-12-05 08:59 | XMS_ITS | Clinical Summary ---
Author Organization [facility] Address [address] [place] [address] Phone Care Team Providers Care Cleaner Furniture Name Role Phone Nahum Camarena NP Primary Care Provider [phone] Allergies Active Allergy Reactions Criticality Noted Date [...] HISTORICAL TOTAL HYSTERECTOMY W/O BSO SECTION PROCEDURE: [facility] DELIVERY ONLY; COMMENT: x2 LEG SURGERY PROCEDURE: [...] Upcoming Encounters Date Type Department Care Team ([facility] st Contact Info) Description 12/12/2024 10:15 AM EDT Office Visit Orthopedic Surgery - [address] [facility] [address] [place] [id number] Dontrell Barron, DPM [address] [facility] [address] [place] [address] Health Maintenance Due Date Last Done Comments [...] Influencers of Health Screening 12/29/2023 COVID-19 Vaccine ( - 2023-2 5 season) 2024 Influenza Vaccine (#1) 2025 HIB Vaccines Aged Out No longer [...] age to complete this topic Care Teams Cleaner Furniture Relationship Specialty Start Date End Date Nahum Camarena NP [address] [facility] [place] PCP - General 08/20/23
--- OUTSIDE RECORDS SUMMARY | 2024-12-05 09:00 | XMS_ITS | Clinical Summary ---
Author Organization [facility] Address [address] [place] [address] Care Team Providers Care Broadcast Meteorologist Name Role Phone Unavailable Primary Care Provider [...] 2005 Imm-Zoster, Recombinant (1 of 2) 2010 [id number] ( season) 2024 021, 08/21/2020 Imm-Influenza (#1) 2024 02/23/2019, 1 , 02/14/2016 Alcohol and Drug Screen 06/01/2024 Depression Annual Screen 06/01/2024 Cervical Ablation/Cold-Knife Conization Discontinued Cervical Cryotherapy Discontinued Colposcopy Discontinued Endometrial Biopsy Discontinued Excision/Leep Discontinued HPV Genotyping Discontinued Vaginal Pap Discontinued Vulvoscopy Discontinued Insurance [facility]
[2024-12-05 09:27] LABS: MANUAL DIFF FLAG NO
[2024-12-05 09:58] LABS: Hematocrit 37.9 % (37.0-47.0); Hemoglobin 12.1 g/dl (12.0-16.0); Imm Gran Abs Auto 0.01 X10*3/uL (0.00-0.03); Imm Gran Pct Auto 0.2 % (0.0-0.4); Lymphocytes Absolute Auto 2.1 X10*3/uL (1.2-4.9); Mean Corpuscular HGB Conc 31.9 g/dl (31.0-35.0); Mean Corpuscular Hemoglobin 26.0 pg (27.0-33.0); Mean Corpuscular Volume 81.3 fL (80.0-98.0); NRBC Abs Auto 0.000 X10*3/uL (0.0-0.012); NRBC Pct Auto 0.0 /100WBC (0.0-0.2); Platelet Count 171 X10*3/uL (160-400); Red Blood Count 4.66 X10*6/uL (4.20-5.50); White Blood Count 4.8 X10*3/uL (4.8-10.8)
[2024-12-05 10:06] LABS: Hemoglobin A1C 194.1488 umol/L; Total Hemoglobin (HGBA1C) 3196.3243 umol/L
[2024-12-05 10:44] LABS: Alanine Aminotransferase 33 U/L (0-31); Albumin Level 4.3 g/dL (3.5-5.0); Alkaline Phosphatase 75 U/L (39-117); Anion Gap 11 (12-20); Aspartate Amino Transferase 23 U/L (5-31); Blood Urea Nitrogen 15 mg/dL (9-16); Calcium 9.2 mg/dL (8.4-10.2); Carbon Dioxide 25 mmol/L (22-29); Chloride 108 mmol/L (96-108); Cholesterol 113 mg/dL (<200); Estimated Glomerular Filt Rate > 60; HDL Cholesterol 29 mg/dL (>40); Potassium 3.9 mmol/L (3.3-5.1); Sodium 140 mmol/L (135-145); Total Protein 6.7 g/dL (6.5-8.0); Triglycerides 146 mg/dL (<150)
[2024-12-05 10:57] LABS: Appearance Urine Clear; Glucose Urine UA Negative (Negative); PH 5.5 (5.0-9.0); Specific Gravity - Urine 1.025 (1.005-1.025)
[2024-12-05 12:16] LABS: Microalbum/Creatinine Ratio Ur 44.1 ug/mg cr (<30)
== END 2024-12-05 08:47 | disposition home or self-care (01) ==
LOC: HO.LAB 08:46
PROVIDERS: PCP Nurse Practitioner Family; Visit Provider Nurse Practitioner Family
DX: E11.21 Type 2 diabetes mellitus with diabetic nephropathy (principal); E11.65 Type 2 diabetes mellitus with hyperglycemia
CPT/HCPCS: 36415; 80053; 80061; 81003; 82043; 82570; 83036; 84443; 85025

== ENCOUNTER 2024-12-14 12:52 | Outpatient (AMB) | payer OTHER, SELFPAY ==
--- NOTE | 2024-12-14 13:17 | HO.NEPHOV ---
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: No Accompanied by: Self / Same As Patient Allergies hydrocortisone Allergy (Verified 12/14/24 13:20) Rash HPI Comments Details: 64-year-old lady with PMH of hypertension, diabetes mellitus, CAD is here to establish care for the management of proteinuria Diabetes mellitus: Has diabetes for a very long time over 15 years, On Trulicity,metformin and Lantus 45, HbA1c 7.7 Hypertension: On metoprolol 50, irbesartan 75 daily, blood pressure is under control CAD: on aspirin and statin [facility] Medical History Lump of right breast CAD (coronary artery disease) HTN (hypertension) Dyslipidemia Diabetes type 2, uncontrolled Diabetic nephropathy associated with type 2 diabetes 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 Maternal Grandfather Unknown family medical history Paternal Grandfather Unknown family medical history Paternal Grandmother Unknown family medical history Paternal Aunt Ovarian cancer Social History Housing: House Alcohol intake: current Patient Tobacco Use Status: Current everyday Tobacco user Tobacco use type: Cigarette Cigarettes Per Day: 2 Years Smoked: (onset 30yo, 1ppd x 32yrs, now 6-7cig/day, 30pyh) e-Cigarette/Vaping Use: Never Used Second Hand Smoke Exposure: No Current occupational status: unemployed and retired Cognitive needs: No Hearing needs: No Vision needs: No Review of Systems Const Details: Const Denies body aches, Denies chills, Denies excessive sweating and Denies fatigue Eyes Denies blurry vision and Denies change in vision ENT Denies bleeding gums and Denies change in voice Card Denies chest pain and Denies leg ulcers Resp Denies cough and Denies excessive phlegm production GI Denies abdominal pain and Denies bloating Denies hematuria, Denies urinary frequency and Denies difficulty voiding Musc Denies abnormal gait Neuro Denies Neuro-related abnormal movements, Denies abnormal gait and Denies behavioral changes Psych Denies behavioral changes and Denies change in appetite Endo Denies change in body appearance, Denies cold intolerance, Denies excessive sweating and Denies fatigue Physical Exam Vital Signs: Last Vital Signs Pulse 92 12/14/24 13:18 BP 130/62 12/14/24 13:18 Pulse Ox 97 12/14/24 13:18 Oxygen Delivery Method Room Air 12/14/24 13:18 BMI result Body Mass Index 32.4 General: Very pleasant lady who speaks Ukrainian, not in any acute distress, comfortable, sitting on the chair Nutritional Appearance: well nourished and overweight Eyes: appearance normal, both eyes and all related structures; Alignment and Position: alignment normal and position normal Neck: No lymphadenopathy, no thyromegaly Resp: bilateral air entry equal, no added sounds present Cardio: Regular rate, regular rhythm; Heart sounds: S1 normal heart sound present and S2 normal heart sound present, no edema GI: soft, nontender, no guarding, no hepatosplenomegaly : bladder normal to inspection, bladder normal to palpation, no renal angle tenderness Skin: no rashes or lesions noted and elasticity normal Neuro: oriented to person, oriented to place, oriented to time and moves all extremities Results Reviewed Nephrology Results: Hgb, (12.0-16.0) 12.1 g/dl 12/05/24 WBC, (4.8-10.8) 4.8 X10*3/uL 12/05/24 Plt Count, (160-400) 171 X10*3/uL 12/05/24 Sodium, (135-145) 140 mmol/L 12/05/24 Potassium, (3.3-5.1) 3.9 mmol/L 12/05/24 Chloride, (96-108) 108 mmol/L 12/05/24 Carbon Dioxide, (22-29) 25 mmol/L 12/05/24 BUN, (9-16) 15 mg/dL 12/05/24 Creatinine, (0.5-1.4) 0.58 mg/dL 12/05/24 Calcium, (8.4-10.2) 9.2 mg/dL 12/05/24 Urine Protein, (Neg-Trace) Trace mg/dL 12/05/24 Urine Creatinine 138.29 mg/dL 12/05/24 Assessment & Plan Assessment & Plan (1) HTN (hypertension): Code(s): I10 - Essential (primary) hypertension Category: Medical (2) Diabetes type 2, uncontrolled: Code(s): - Type 2 diabetes mellitus with hyperglycemia Category: Medical (3) CAD (coronary artery disease): Code(s): I25.10 - Atherosclerotic heart disease of [place] coronary artery without angina pectoris Category: Medical (4) Microalbuminuria: Code(s): R80.9 - Proteinuria, unspecified Category: Medical Plan Proteinuria: - possibly secondary to diabetes mellitus along with overweight - creatinine 0.58, HB A1c 7.7, urinalysis normal, UACR 44.1 - importance of weight loss vertebral explained to the patient - continue irbesartan 75 mg as blood pressure is at target - TUAN positive 1:80, but further workup negative. Complements normal - will rule out other etiologies including HIV, hepatitis panel - will add Jardiance for renal protection, explaiend her the possible side effects including Obesity: - advised her the importance of weight loss and how it will help all her problems including HTN, Diabetes and proteinuria Hypertension: - blood pressures under control - continue Irbesartan 75mg Diabetes mellitus: - on lantus 45 daily, metformin, trulicity - will add Jardiance - last A1c 7.7 will see her back in 6 months time spent is about 35 mins, 10 mins on chart review, 15 minutes on encounter, 10 minutes on documentation Orders: Orders Basic Metabolic Panel 5 Months - Type 2 diabetes mellitus with hyperglycemia, I10 - Essential (primary) hypertension, I25.10 - Atherosclerotic heart disease of [place] coronary artery without angina pectoris, R80.9 - Proteinuria, unspecified UA and rflx microscopic 5 Months E11.65 - Type 2 diabetes mellitus with hyperglycemia, I10 - Essential (primary) hypertension, I25.10 - Atherosclerotic heart disease of [place] coronary artery without angina pectoris, R80.9 - Proteinuria, unspecified Creatinine Urine 5 Months E11.65 - Type 2 diabetes mellitus with hyperglycemia, I10 - Essential (primary) hypertension, I25.10 - Atherosclerotic heart disease of [place] coronary artery without angina pectoris, R80.9 - Proteinuria, unspecified HIV Ab/Ag 5 Months E11.65 - Type 2 diabetes mellitus with hyperglycemia, I10 - Essential (primary) hypertension, I25.10 - Atherosclerotic heart disease of [place] coronary artery without angina pectoris, R80.9 - Proteinuria, unspecified Microalbumin, Random (w Creat) 5 Months E11.65 - Type 2 diabetes mellitus with hyperglycemia, I10 - Essential (primary) hypertension, I25.10 - Atherosclerotic heart disease of [place] coronary artery without angina pectoris, R80.9 - Proteinuria, unspecified Total Protein Urine Random 5 Months E11.65 - Type 2 diabetes mellitus with hyperglycemia, I10 - Essential (primary) hypertension, I25.10 - Atherosclerotic heart disease of [place] coronary artery without angina pectoris, R80.9 - Proteinuria, unspecified Hepatitis B,C Profile 5 Months E11.65 - Type 2 diabetes mellitus with hyperglycemia, I10 - Essential (primary) hypertension, I25.10 - Atherosclerotic heart disease of [place] coronary artery without angina pectoris, R80.9 - Proteinuria, unspecified [place]/Lambda Light Chain Serum 5 Months E11.65 - Type 2 diabetes mellitus with hyperglycemia, I10 - Essential (primary) hypertension, I25.10 - Atherosclerotic heart disease of [place] coronary artery without angina pectoris, R80.9 - Proteinuria, unspecified Protein Electrophoresis, Serum 5 Months E11.65 - Type 2 diabetes mellitus with hyperglycemia, I10 - Essential (primary) hypertension, I25.10 - Atherosclerotic heart disease of [place] coronary artery without angina pectoris, R80.9 - Proteinuria, unspecified Coding Level of Care Code New Pt Level 4 (70954) Diagnoses HTN (hypertension) I10 Diabetes type 2, uncontrolled E11. CAD (coronary artery disease) I25.10 Microalbuminuria R80.9
[2024-12-14 13:18] VITALS: BP 130/62; PULSE 92; O2SAT 97; BMI 32.4
--- OUTSIDE RECORDS SUMMARY | 2024-12-14 13:46 | XMS_ITS | Clinical Summary ---
Author Organization [facility] Facility Address [address] [place] [address] Care Team Providers Care Toe Lining Closer Name Role Phone Darreljesus Nahum WINTERS Primary Care Provider [phone] Family History Relation Status Comments Father Unknown [...] patient's age to complete this topic Insurance [facility] One Care Dual SNP ([id number]) [facility] One Care Dual SNP ([id number]) [place] [id number] Care Teams Toe Lining Closer Relationship Specialty Start Date End Date Nahum Camarena NP [address] [place] [address] PCP - General Nurse Practitioner 07/09/22
--- OUTSIDE RECORDS SUMMARY | 2024-12-14 13:46 | XMS_ITS | Clinical Summary ---
Author Organization [facility] Address [address] [place] [address] Care Team Providers Care Labor Contract Analyst Name Role Phone Unavailable Primary Care Provider [...] 2005 Imm-Zoster, Recombinant (1 of 2) 2010 Imm-Pneumococcal 50+ (2 of 2 - PCV) 04/16/201404/16 [id number] (3 - season) 2024 021, 08/21/2020 Alcohol and Drug Screen 06/01/2024 Depression Annual Screen 06/01/2024 Imm-Influenza (#1) 2025 02/23/2019, 1 , 02/14/2016 Cervical Ablation/Cold-Knife Conization Discontinued Cervical Cryotherapy Discontinued Colposcopy Discontinued Endometrial Biopsy Discontinued Excision/Leep Discontinued HPV Genotyping Discontinued Vaginal Pap Discontinued Vulvoscopy Discontinued Insurance [facility] [place]JO [id number]
--- OUTSIDE RECORDS SUMMARY | 2024-12-14 13:46 | XMS_ITS | Clinical Summary ---
Author Organization 175 [facility] Address 175 [place] [address] Phone Care Team Providers Care Assistant Mechanic Name Role Phone Nahum Camarena NP Primary [...] 4 (four) times a day if needed. butalbital-aspi rin-caffeine (BUTALBITAL COMPOUND/ASA) per tablet Active ondansetron ODT (ZOFRAN-ODT) 4 [...] Units under the skin at bedtime. Active ciclopirox (PENLAC) 8 % solution Apply topically at bedtime. Apply over nail and surrounding skin. Apply daily over previous coat. After seven (7) days, may remove with alcohol and continue cycle. 6.6 mL 3 12/13/19 25 025 Active ketoconazole (NIZORAL) 2 % cream Apply topically 1 (one) time each day. 30 g 2 12/13/19 25 Active Active Problems Problem Noted Date Diagnosed Date Asthma 03/21/2024 Heartburn 03/21/2024 Migraines 03/21/2024 Obese 03/21/2024 Condition not found 05/04/2013 Overview (03/21/2024): Diabetes mellitus type 2, uncontrolled Encounters Date Type Department Care Team Description 12/12/2024 10:15 AM EDT Office Visit Orthopedic Surgery - [place] [address] [place] [phone] Dontrell Barron DPM Dermatophytosis of nail (Primary Dx); Diabetic mononeuropathy simplex (CMS/HCC V24, CMS/HCC V28) from Last 3 Months Surgical History Surgery Date Site/Laterality Comments OTHER SURGICAL HISTORY PROCEDURE: HISTORICAL TOTAL HYSTERECTOMY W/O BSO SECTION PROCEDURE: [place] DELIVERY ONLY; COMMENT: x2 LEG SURGERY PROCEDURE: [...] Upcoming Encounters Date Type Department Care Team (Late st Contact Info) Description 01/24/2025 8:30 AM EDT Office Visit Orthopedic Surgery - [place] [address] [phone] Dontrell Barron, DPM [address] [address] Health Maintenance Due Date Last Done Comments Breast Cancer Screening 1960 Diabetes: Annual GFR (Glomerular Filtration Rate) 1960 Diabetes: Annual Foot Exam 1970 Diabetes: Annual Retina Eye Exam 1970 Cervical Cancer Screening: Pap Smear 1981 Cholesterol Screening (Lipid Panel) 12/29/2023 Colorectal Cancer Screening: Colonoscopy 12/29/2023 Depression Screening 12/29/2023 HIV Screening 12/29/2023 Hepatitis C Screening 12/29/2023 Medicare Annual Wellness Visit 12/29/2023 Social Influencers of Health Screening 12/29/2023 Diabetes: Annual Urine Albumin-Creatinine Ratio (uACR) 12/12/2024 Diabetes: Blood Sugar Control Test (HGBA1C) 12/12/2024 Influenza Vaccine (#1) 2025 , 02/24/2023, 01/31/2022, Additional history exists DTaP,Tdap,and Td Vaccines (2 - Td or Tdap) 07/10/2033 07/10/2023 Zoster Vaccines Completed 02/24/2022, 12/21/2021 Pneumococcal Vaccine: 50+ Years Completed 04/02/2023, 02/24/2022, 04/16/2013 RSV Immunization Adult Patients Completed 05/06/2023 COVID-19 Vaccine Completed 02/03/2024, , 12/21/2021, Additional history exists HIB Vaccines Aged Out No longer eligi [...] to complete this topic RSV Immunization Patients Under 20 months Aged Out No longer eligible based on patient's age to complete this topic Varicella Vaccines Aged Out No longer eligible based on patient's age to complete this topic Insurance [place] - [place] [employer] MEDICARE Member Subscriber Plan / Payer (Ef fective 2013-Present) Name:ALEKSANDR CONTRERAS Relation to Subscriber:Self Name:Aleksandr Contreras Payer ID:[id number] Group ID:[id number] Type:Not on file Address: [address] [place] [phone] Care Teams Assistant Mechanic Relationship Specialty Start Date End Date [facility] [place] [facility] - [facility] 08/20/[facility]
== END 2024-12-14 13:56 | disposition home or self-care (01) ==
LOC: HO.HKAS 12:53
PROVIDERS: PCP Nurse Practitioner Family; Referring Provider Nurse Practitioner Family; Visit Provider Internal Medicine Critical Care Medicine
DX: I10 Essential (primary) hypertension (principal); E11.65 Type 2 diabetes mellitus with hyperglycemia; I25.10 Atherosclerotic heart disease of native coronary artery without angina pectoris; R80.9 Proteinuria, unspecified
CPT/HCPCS: 99204

== ENCOUNTER → 2024-12-14 12:52 | Outpatient (BNVA) | payer OTHER, SELFPAY | PROVIDERS: PCP Nurse Practitioner Family; Referring Provider Nurse Practitioner Family; Visit Provider Internal Medicine Critical Care Medicine | DX: E11.65 Type 2 diabetes mellitus with hyperglycemia (principal); I10 Essential (primary) hypertension; I25.10 Atherosclerotic heart disease of native coronary artery without angina pectoris; R80.9 Proteinuria, unspecified; Z79.4 Long term (current) use of insulin; Z79.84 Long term (current) use of oral hypoglycemic drugs; Z79.85 Long-term (current) use of injectable non-insulin antidiabetic drugs | CPT/HCPCS: 99202 ==

== ENCOUNTER 2024-12-16 08:43 | Outpatient (REF) | payer OTHER, SELFPAY ==
--- NOTE | ~2024-12-16 | MM_ITS ---
EXAMINATION: MM DIAGNOSTIC DIGITAL BREAST TOMOSYNTHESIS, RIGHT Limited right breast ultrasound. CLINICAL INFORMATION: Right breast palpable lump. COMPARISON: Mammography: Comparison is made with available prior examinations. TECHNIQUE: Digital breast tomosynthesis is performed in both the craniocaudal and mediolateral oblique views along with computer-aided detection (CAD). Synthesized 2D images are generated from the tomosynthesis. FINDINGS: The breasts are heterogeneously dense, which may obscure small masses (ACR BI-RADS breast composition Category c). BB palpable marker in the lower central breast middle depth without underlying abnormal finding. No suspicious calcifications masses or other abnormal findings. Targeted color Doppler ultrasound scanning in the area the patient's palpable lump in the right breast from 4- 8:00 demonstrates normal fibroglandular breast tissue. MM/MM tomosynthesis diagnostic RT IMPRESSION: No mammographic or sonographic abnormal finding to account for the patient's right breast palpable lump. Recommend clinical evaluation follow-up. ASSESSMENT: BI-RADS BI-RADS 1 - Negative RECOMMENDATION: 1 year F/U Results were provided to the patient at time of visit by the technologist. This patient's information was entered into a reminder system with a target due date for their next mammogram. Electronically signed by: Caren Cleaning DO 12/16/2024 08:39 PM EDT
--- OUTSIDE RECORDS SUMMARY | 2024-12-16 08:47 | XMS_ITS | Clinical Summary ---
Author Organization [facility] Address [address] [place] [address] Care Team Providers Care Certified Procedural Coder Name Role Phone Unavailable Primary Care Provider [...] 50+ (2 of 2 - PCV) 04/16/201404/16 [id number] (3 - season) 2024 021, 08/21/2020 Alcohol and Drug Screen 06/01/2024 Depression Annual Screen 06/01/2024 Imm-Influenza (#1) 2025 02/23/2019, 1 , 02/14/2016 Cervical Ablation/Cold-Knife Conization Discontinued Cervical Cryotherapy Discontinued Colposcopy Discontinued Endometrial Biopsy Discontinued Excision/Leep Discontinued HPV Genotyping Discontinued Vaginal Pap Discontinued Vulvoscopy Discontinued Insurance [facility] [place] [id number]
--- OUTSIDE RECORDS SUMMARY | 2024-12-16 08:47 | XMS_ITS | Clinical Summary ---
Author Organization [facility] Address [address] [place] [address] Care Team Providers Care State Farm Agent Name Role Phone Darreljesus Nahum WINTERS Primary Care Provider [phone] Family History Relation Status Comments Father Unknown [...] to complete this topic Insurance [facility] One Care Dual SNP ([id number]) [place] [id number] [facility] One Care Dual SNP ([id number]) [place] [id number] Care Teams State Farm Agent Relationship Specialty Start Date End Date Nahum Camarena NP [address] [place] [address] PCP - General Nurse Practitioner 07/09/22
--- OUTSIDE RECORDS SUMMARY | 2024-12-16 08:47 | XMS_ITS | Clinical Summary ---
Author Organization 175 [facility] Address 175 [place] [address] Phone Care Team Providers Care Digital Account Manager Name Role Phone Nahum Camarena NP Primary [...] AM EDT Office Visit Orthopedic Surgery - [place] [address] [place] [phone] Dontrell Barron DPM Dermatophytosis of nail (Primary Dx); Diabetic mononeuropathy simplex (CMS/HCC V24, CMS/HCC V28) from Last 3 Months Surgical History Surgery Date Site/Laterality Comments OTHER SURGICAL HISTORY PROCEDURE: HISTORICAL TOTAL HYSTERECTOMY W/O BSO SECTION PROCEDURE: [place] DELIVERY ONLY; COMMENT: x2 LEG SURGERY PROCEDURE: [...] AM EDT Office Visit Orthopedic Surgery - [place] [address] [phone] Dontrell Barron, DPM [address] [address] Health Maintenance Due Date Last Done Comments [...] Group ID:[id number] Type:Not on file Address: [address] [phone] Care Teams Digital Account Manager Relationship Specialty Start Date End Date Nahum Camarena NP [facility] [place] PCP - General 08/20/23
== END 2024-12-16 08:44 | disposition home or self-care (01) ==
LOC: HO.MAMMO 08:43
PROVIDERS: PCP Nurse Practitioner Family; Visit Provider Nurse Practitioner Family
DX: N63.13 Unspecified lump in the right breast, lower outer quadrant (principal)
CPT/HCPCS: 76642; 77061; 77065

== ENCOUNTER → 2024-12-16 09:30 | Outpatient (BNV) | payer OTHER, SELFPAY | PROVIDERS: PCP Nurse Practitioner Family; Visit Provider Internal Medicine | DX: N63.14 Unspecified lump in the right breast, lower inner quadrant (principal) | CPT/HCPCS: 76642; 77065; G0279 ==

== ENCOUNTER 2025-03-01 09:59 | Outpatient (REF) | payer OTHER, SELFPAY ==
--- NOTE | ~2025-03-01 | CT_ITS ---
EXAMINATION: CT LOW-DOSE SCREENING CHEST WITHOUT CONTRAST CLINICAL INFORMATION: 64-year-old female, smoker, 33 pack years, lung cancer screening. COMPARISON: 08/15/2022. TECHNIQUE: Multidetector volumetric CT imaging of the chest is performed on a Siemens SOMATOM Definition scanner without contrast using low dose technique. Additional 2D coronal and sagittal reformatted images and axial 3D maximum intensity projection (MIP) images are generated on the CT workstation. This CT examination was performed using dose optimization techniques as appropriate, variously including the following: *Automated exposure control *Adjustment of mA and/or kV according to patient size (this includes techniques or standardized protocols for targeted exams where dose is matched to indication/reason for exam; i.e. extremities or head) *Use of iterative reconstruction technique FINDINGS: PULMONARY NODULES: There are numerous scattered 3 mm nodules in both lungs, unchanged from the prior examination. There is no new or enlarging pulmonary nodule evident. LUNGS: There is mild centrilobular emphysema. Lungs are otherwise well expanded and clear. No consolidations. No interstitial abnormalities. Small airways appear normal. No effusion or pneumothorax. MEDIASTINUM: Normal thyroid gland. No adenopathy or mass evident. The aorta is mildly calcified, without aneurysm. The main pulmonary artery is normal in size. The heart size is normal. There is no pericardial effusion. There is no esophageal abnormality. CORONARY ARTERY CALCIFICATION: Moderate. CHEST WALL/AXILLA: No mass or abnormal lymph nodes. UPPER ABDOMEN: Imaged upper abdominal contents demonstrate mild hepatomegaly and borderline splenomegaly. OSSEOUS STRUCTURES: No suspicious lytic or blastic bone lesions. There are mild degenerative spinal changes present. CT/CT lung screening IMPRESSION: 1. A few scattered 3 mm pulmonary nodules in both lungs are stable and unchanged. No new or enlarging pulmonary nodule. 2. Mild pulmonary emphysema. No active pulmonary disease. 3. Moderate degree of coronary calcifications. ASSESSMENT: 1. Lung-RADS Category 2: Benign appearance or behavior of nodules. 2. Lung-RADS Category S: None. RECOMMENDATION: Continued routine annual low-dose CT lung screening in 1 year is recommended. An order for CT CHEST LOW DOSE CANCER SCREENING ([id number]) can be placed. Electronically signed by: Mendez Cortez MD 03/01/2025 10:49 AM EDT
--- OUTSIDE RECORDS SUMMARY | 2025-03-01 11:10 | XMS_ITS | Clinical Summary ---
Author Organization 175 [facility] Address [address] [place] [address] Phone Care Team Providers Care Cleaner Assistant Name Role Phone Nahum Camarena NP Primary Care Provider [phone] Allergies Active Allergy Reactions Criticality Noted Date [...] day. 30 g 2 12/13/19 25 Active silver sulfADIAZINE (Silvadene) 1 % cream Apply topically 1 (one) time each day. 50 g 01/25/20 25 026 Active cephalexin (KEFLEX) 500 mg capsule Take 1 capsule (500 mg total) by mouth 3 (three) times a day for 10 days. 30 each 01/25/20 25 025 Active Problems Problem Noted Date Diagnosed Date Asthma 03/21/2024 Heartburn 03/21/2024 Migraines 03/21/2024 Obese 03/21/2024 Condition not found 05/04/2013 Overview (03/21/2024): Diabetes mellitus type 2, uncontrolled Encounters Date Type Department Care Team Description 02/06/2025 10:45 AM EDT Office Visit Orthopedic Surgery [address] [phone] Dontrell Barron, DPM Dermatophytosis of nail (Primary Dx); Ingrowing nail; Diabetic mononeuropathy simplex ([facility] V24, [facility] V28) 01/24/2025 8:30 AM EDT Office Visit Orthopedic [place] [address] [phone] Dontrell Barron DPM Cellulitis of great toe of right foot (Primary Dx); Dermatophytosis of nail; Ingrowing nail 12/12/2024 10:15 AM EDT Office Visit Orthopedic [facility] [address] [phone] Dontrell Barron DPM Dermatophytosis of nail (Primary Dx); Diabetic mononeuropathy simplex ([facility] V24, [facility] V28) from Last 3 Months Surgical History Surgery Date Site/Laterality Comments OTHER SURGICAL HISTORY PROCEDURE: HISTORICAL TOTAL HYSTERECTOMY W/O BSO SECTION PROCEDURE: [place] DELIVERY ONLY; COMMENT: x2 LEG SURGERY PROCEDURE: [...] Care Team (Late st Contact Info) Description 05/09/2025 10:15 AM EST Office Visit Orthopedic [facility] [address] [phone] Dontrell Barron DPM [address] [phone] Health Maintenance Due Date Last Done Comments Breast Cancer Screening 1960 Colorectal Cancer Screening: Colonoscopy 1960 Diabetes: Annual GFR (Glomerular Filtration Rate) 1960 Diabetes: Annual Foot Exam 1970 Diabetes: Annual Retina Eye Exam 1970 Cervical Cancer Screening: Pap Smear 1981 Cholesterol Screening (Lipid Panel) 12/29/2023 HIV Screening 12/29/2023 Hepatitis C Screening 12/29/2023 Medicare Annual Wellness Visit 12/29/2023 Social Influencers of Health Screening 12/29/2023 Depression Screening 06/01/2024 Diabetes: Annual Urine Albumin-Creatinine Ratio (uACR) 12/12/2024 Diabetes: Blood Sugar Control Test (HGBA1C) 12/12/2024 DTaP,Tdap,and Td Vaccines (2 - Td or Tdap) 07/10/2033 07/10/2023 Zoster Vaccines Completed 02/24/2022, 12/21/2021 Pneumococcal Vaccine: 50+ Years Completed 04/02/2023, 02/24/2022, 04/16/2013 RSV Immunization Adult Patients Completed 05/06/2023 COVID-19 Vaccine Completed 02/03/2024, , 12/21/2021, Additional history exists Influenza Vaccine Completed 02/03/2025, , 02/24/2023, Additional history exists HIB Vaccines Aged Out [...] ID:[id number] Group ID:[id number] Type:Not on file Address: [address] [place] [phone] Care Teams Cleaner Assistant Relationship Specialty Start Date End Date Nahum Camarena NP [address] [place], [place] PCP - General 08/20/23
--- OUTSIDE RECORDS SUMMARY | 2025-03-01 11:10 | XMS_ITS | Clinical Summary ---
Author Organization [facility] Address [address] [place] [address] Care Team Providers Care Alterations Sewer Name Role Phone Unavailable Primary Care Provider [...] 50+ (2 of 2 - PCV) 04/16/201404/16 Alcohol and Drug Screen 06/01/2024 Depression Annual Screen 06/01/2024 [id number] ( season) 2025 021, 08/21/2020 Imm-Influenza (#1) 2025 02/23/2019, 1 , 02/14/2016 Cervical Ablation/Cold-Knife Conization Discontinued Cervical Cryotherapy Discontinued Colposcopy Discontinued Endometrial Biopsy Discontinued Excision/Leep Discontinued HPV Genotyping Discontinued Vaginal Pap Discontinued Vulvoscopy Discontinued Insurance [facility] [place] [id number]
--- OUTSIDE RECORDS SUMMARY | 2025-03-01 11:10 | XMS_ITS | Clinical Summary ---
Author Organization [facility] Facility Address [address] [place] [address] Care Team Providers Care Market Development Trainer Name Role Phone Darreljesus Nahum WINTERS Primary Care Provider Family History Relation Status Comments Father Unknown [...] patient's age to complete this topic Insurance [facility] One Care Dual SNP ([id number]) [facility] One Care Dual SNP ([id number]) [place] [id number] Care Teams Market Development Trainer Relationship Specialty Start Date End Date Nahum Camarena NP [address] [place] [address] PCP - General Nurse Practitioner 07/09/22
== END 2025-03-01 10:00 | disposition home or self-care (01) ==
LOC: HO.CT 09:59
PROVIDERS: PCP Nurse Practitioner Family; Visit Provider Physician Assistant Medical
DX: Z12.2 Encounter for screening for malignant neoplasm of respiratory organs (principal); F17.210 Nicotine dependence, cigarettes, uncomplicated
CPT/HCPCS: 71271

== ENCOUNTER → 2025-03-01 10:01 | Outpatient (BNV) | payer OTHER, SELFPAY | PROVIDERS: PCP Nurse Practitioner Family; Visit Provider Radiology Diagnostic Radiology | DX: F17.210 Nicotine dependence, cigarettes, uncomplicated (principal) | CPT/HCPCS: 71271 ==

== ENCOUNTER → 2025-03-15 10:38 | Outpatient (AMB) | payer OTHER, SELFPAY ==
[2025-03-15 11:05] VITALS: BMI 32.5
--- NOTE | 2025-03-15 11:05 | A.OFFVIS_ITS ---
VS Expanded 03/15/25 11:05 03/15/25 11:18 Height 5 ft 5 ft Weight 166 lb 7.184 oz 166 lb BMI 32.5 32.4 Intake Visit Reasons: T2DM Allergies hydrocortisone Allergy (Verified 12/14/24 13:20) Rash Nutrition Presentation Details: Pt presents for MNT 6 m f/u for T2DM food frequency fried food/d: 1/m fruits: 0-1/d dairy: 1/d ve/wk Pt reports monitoring BG in fasting state and bg ranges from 90-116 mg/dl , not monitoring after meals Today will review dietary modification for weight loss BS Monitoring Most Recent Diabetes Results: Microalb/Creat Ratio, (<30) 44.1 ug/mg cr H 12/05/24 Cholesterol, (<200) 113 mg/dL 12/05/24 HDL Cholesterol, (>40) 29 mg/dL L 12/05/24 Triglycerides, (<150) 146 mg/dL 12/05/24 Creatinine, (0.5-1.4) 0.58 mg/dL 12/05/24 BUN, (9-16) 15 mg/dL 12/05/24 Sodium, (135-145) 140 mmol/L 12/05/24 Potassium, (3.3-5.1) 3.9 mmol/L 12/05/24 Chloride, (96-108) 108 mmol/L 12/05/24 Carbon Dioxide, (22-29) 25 mmol/L 12/05/24 Calcium, (8.4-10.2) 9.2 mg/dL 12/05/24 AST, (5-31) 23 U/L 12/05/24 ALT, (0-31) 33 U/L H 12/05/24 Total Protein, (6.5-8.0) 6.7 g/dL 12/05/24 Albumin, (3.5-5.0) 4.3 g/dL 12/05/24 QKC-Kfjldtf-Pe.Jeor Equation Height: 5 ft Weight: 166 lb Resting Metabolic Rate: 1228.83 Calculated Activity Level: Sedentary Calories Needed to Maintain Weight: 1474.60 Diagnosis Nutrition problem #1: overweight/obesity As related to (etiology) #1: physical inactivity As evidenced by (sign/symptom) #1: weight gain [facility] Medical History (Updated 01/25/25 @ 14:27 by Nahum Camarena, [facility]) Cellulitis, toe Lump of right breast CAD (coronary artery disease) HTN (hypertension) Dyslipidemia Diabetes type 2, uncontrolled Diabetic nephropathy associated with type 2 diabetes mellitus 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 Maternal Grandfather Unknown family medical history Paternal Grandfather Unknown family medical history Paternal Grandmother Unknown family medical history Paternal Aunt Ovarian cancer Social History Housing: House Alcohol intake: current Patient Tobacco Use Status: Current everyday Tobacco user Tobacco use type: Cigarette Cigarettes Per Day: 2 Years Smoked: (onset 30yo, 1ppd x 32yrs, now 6-7cig/day, 30pyh) e-Cigarette/Vaping Use: Never Used Second Hand Smoke Exposure: No Current occupational status: unemployed and retired Cognitive needs: No Hearing needs: No Vision needs: No Assessment & Plan Assessment & Plan (1) Diabetic nephropathy associated with type 2 diabetes mellitus: Code(s): E11.21 - Type 2 diabetes mellitus with diabetic nephropathy Category: Medical Plan: wt: 77 kg (07/2023), 74 kg (03/24), 09/23, 74 kg , 75kg (03/25) Est kcal needs as per MSJ: 1500- (40% carb, 30% protein/fat) Est fluid needs as per 30 ml/d: 2300 ml/d Est prot per day as per 1 g/kg bw: 77g/d Recommend fiber intake : 8-10 g per day and gradually increase to 25-28 g per day for women and 35-38 g for men or as tolerated Recommend sodium intake per day : less than 2000 mg Educated patient on: ( R = reviewed V = verbalizes understanding N/R = needs review N/A = not applicable * Food sources of carbohydrate, adequate serving sizes and its role in various health conditions: R ,V * Differences between complex carbohydrates a simple carbohydrates, role of fiber in diet: R ,V * Differences between types of fats and role in diet (mono on saturated fat fat ty acids, saturated fatty acids, trans fats): R V * Food sources of sodium in salt and healthy modifications for heart health in kidney health: R * Healthy plate method concept: R V * Physical activity: Benefits a precaution: R V * Hypoglycemia protocol (rule of 15): V * Dietary prevention of Hyperglycemia: R V * Vitamin /mineral: Calcium sources of foods: R * monitor your blood sugar 2 hours after a meal (blood sugar goal less than 180 , 2 hours after the meal ): V Patient Instructions: Choose low fat cooking methods (no fried, no breaded foods item, remove visible fat, reduce amount of fat/butter/oils/sauces/creams added Choose 2 veg and 1 serving of fruit as snack (replacing pastries higher fat food options) monitor blood sugar 2 hours after your dinner (goal less than 180mg) wt loss goal 6 lbs less in 3 m Coding Level of Care Code Nutr Indiv Subseq (26190) Diagnoses Diabetic nephropathy associated with type 2 diabetes mellitus E11.21 Time Spent (min) 30
--- OUTSIDE RECORDS SUMMARY | 2025-03-15 12:41 | XMS_ITS | Clinical Summary ---
Author Organization [facility] Address [address] [place] [address] Care Team Providers Care Reinforcing Steel Placer Name Role Phone Unavailable Primary Care Provider [...] Drug Screen 06/01/2024 Depression Annual Screen 06/01/2024 [id number] ( season) 2025 021, 08/21/2020 Imm-Influenza (#1) 2025 02/23/2019, 1 , 02/14/2016 Cervical Ablation/Cold-Knife Conization Discontinued Cervical Cryotherapy Discontinued Colposcopy Discontinued Endometrial Biopsy Discontinued Excision/Leep Discontinued HPV Genotyping Discontinued Vaginal Pap Discontinued Vulvoscopy Discontinued Insurance [facility] [place] [id number]
--- OUTSIDE RECORDS SUMMARY | 2025-03-15 12:41 | XMS_ITS | Clinical Summary ---
Author Organization [facility] Facility Address [address] [place] [address] Care Team Providers Care Ophthalmic Tech Name Role Phone Darreljesus Nahum WINTERS Primary Care Provider [phone] Family History Relation Status Comments Father Unknown [...] patient's age to complete this topic Insurance [facility] One Care Dual SNP ([id number]) [facility] One Care Dual SNP ([id number]) [place] [phone] Care Teams Ophthalmic Tech Relationship Specialty Start Date End Date Nahum Camarena NP [address] [place] [address] PCP - General Nurse Practitioner 07/09/22
--- OUTSIDE RECORDS SUMMARY | 2025-03-15 12:41 | XMS_ITS | Clinical Summary ---
Author Organization 175 [facility] Address [address] [place] [address] Phone Care Team Providers Care Decorative Engraver Name Role Phone Nahum Camarena NP Primary [...] Units under the skin at bedtime. Active ketoconazole (NIZORAL) 2 % cream Apply topically 1 (one) time each day. 30 g 2 12/13/19 25 Active silver sulfADIAZINE (Silvadene) 1 % cream Apply topically 1 (one) time each day. 50 g 01/25/20 25 026 Active ciclopirox (PENLAC) 8 % solution Apply topically at bedtime. Apply over nail and surrounding skin. Apply daily over previous coat. After seven (7) days, may remove with alcohol and continue cycle. 6.6 mL 3 12/13/19 25 025 Active Problems Problem Noted Date Diagnosed Date Asthma 03/21/2024 Heartburn 03/21/2024 Migraines 03/21/2024 Obese 03/21/2024 Condition not found 05/04/2013 Overview (03/21/2024): Diabetes mellitus type 2, uncontrolled Encounters Date Type Department Care Team Description 02/06/2025 10:45 AM EDT Office Visit Orthopedic Surgery [facility] [address] [phone] Dontrell Barron, DPM Dermatophytosis of nail (Primary Dx); Ingrowing nail; Diabetic mononeuropathy simplex ([facility] V24, [facility] V28) 01/24/2025 8:30 AM EDT Office Visit Orthopedic Surgery [facility] [address] [phone] Dontrell Barron DPM Cellulitis of great toe of right foot (Primary Dx); Dermatophytosis of nail; Ingrowing nail from Last 3 Months Surgical History Surgery [...] 05/09/2025 10:15 AM EST Office Visit Orthopedic Surgery - [place] [address] [phone] Dontrell Barron DPM [address] [phone] Health Maintenance Due Date Last Done Comments [...] Group ID:ICO Type:Not on file Address: [address] [place] [phone] Care Teams Decorative Engraver Relationship Specialty Start Date End Date Nahum Camarena NP [address] [place], [place] PCP - General 08/20/23
[2025-03-20 11:26] VITALS: BMI 32.4
== END ==
LOC: HO.ENCR 10:38
PROVIDERS: PCP Nurse Practitioner Family; Visit Provider Dietitian, Registered
DX: E11.21 Type 2 diabetes mellitus with diabetic nephropathy (principal)

== ENCOUNTER → 2025-03-15 10:38 | Outpatient (BNVA) | payer OTHER, SELFPAY | PROVIDERS: PCP Nurse Practitioner Family; Visit Provider Dietitian, Registered | DX: E11.21 Type 2 diabetes mellitus with diabetic nephropathy (principal) | CPT/HCPCS: 97803 ==

== ENCOUNTER 2025-03-22 07:48 | Outpatient (AMB) | payer OTHER, SELFPAY ==
--- OUTSIDE RECORDS SUMMARY | 2025-03-22 07:53 | XMS_ITS | Clinical Summary ---
Author Organization [facility] Facility Address [address] [place] [address] Care Team Providers Care Instructional Writer Name Role Phone Darreljesus Nahum WINTERS Primary Care Provider [phone] Family History Relation Status Comments Father Unknown [...] to complete this topic Insurance [facility] One Care Dual SNP ([id number]) [facility] One Care Dual SNP ([id number]) [place] [id number] Care Teams Instructional Writer Relationship Specialty Start Date End Date Nahum Camarena NP [address] [place] [address] PCP - General Nurse Practitioner 07/09/22
--- OUTSIDE RECORDS SUMMARY | 2025-03-22 07:53 | XMS_ITS | Clinical Summary ---
Author Organization [facility] Address [address] [place] [address] Care Team Providers Care High Pressure Boiler Operator Name Role Phone Unavailable Primary Care [...] Drug Screen 06/01/2024 Depression Annual Screen 06/01/2024 Myb-DSHIQ-27 ( season) 2025 021, 08/21/2020 Imm-Influenza (#1) 2025 02/23/2019, 1 , 02/14/2016 Cervical Ablation/Cold-Knife Conization Discontinued Cervical Cryotherapy Discontinued Colposcopy Discontinued Endometrial Biopsy Discontinued Excision/Leep Discontinued HPV Genotyping Discontinued Vaginal Pap Discontinued Vulvoscopy Discontinued Insurance [facility] [place] [id number]
--- OUTSIDE RECORDS SUMMARY | 2025-03-22 07:53 | XMS_ITS | Clinical Summary ---
Author Organization 175 [facility] Address 175 [place] [address] Phone Care Team Providers Care Associate Accountant Name Role Phone Nahum Camarena NP Primary [...] 10:45 AM EDT Office Visit Orthopedic Surgery [facility] [address] [phone] Dontrell Barron, DPM Dermatophytosis of nail (Primary Dx); Ingrowing nail; Diabetic mononeuropathy simplex ([facility] V24, [facility] V28) 01/24/2025 8:30 AM EDT Office Visit Orthopedic [facility] [address] [phone] Dontrell Barron DPM Cellulitis of great toe of right foot (Primary Dx); Dermatophytosis of nail; Ingrowing nail from Last 3 Months Surgical History Surgery Date Site/Laterality Comments OTHER SURGICAL HISTORY PROCEDURE: HISTORICAL TOTAL HYSTERECTOMY W/O BSO SECTION PROCEDURE: [place] DELIVERY ONLY; COMMENT: x2 LEG SURGERY PROCEDURE: [...] AM EST Office Visit Orthopedic Surgery - [place] [address] [phone] Dontrell Barron DPM [address] [phone] Health Maintenance Due Date Last Done Comments [...] Group ID:[id number] Type:Not on file Address: [address] [place] [id number] Care Teams Associate Accountant Relationship Specialty Start Date End Date Nahum Camarena NP [address] [place], [place] PCP - General 08/20/23
--- NOTE | 2025-03-22 08:28 | MHC.OFFVIS ---
Vital Signs 03/22/25 08:31 Height 5 ft Weight 166 lb BMI 32.4 Intake Visit Reasons: OV- LT knee OA Intake Note: Areli is a 64 year old female who presents today for a follow up of left knee OA. At her last visit on 05/11/24 she was given a third injection of Euflexxa. Patient reports injection provided her with a lot of relief and last about 9 months. She wishes to repeat injections. Allergies hydrocortisone Allergy (Verified 03/22/25 08:31) Rash Medication List - Last Reconciled 03/22/25 by Michaelle Block PA-C acetaminophen 1,000 mg (2 x 500 mg) PO Q6H PRN albuterol sulfate 90 mcg/actuation (Ventolin HFA) 2 puffs inhalation Q4-6H PRN 30 days alcohol swabs (Easy Comfort Alcohol Pad topical pads) 1 pad topical QID aspirin 81 mg PO DAILY blood sugar diagnostic (FreeStyle Lite Strips) As directed 3 times a day blood-glucose meter (FreeStyle Lite Meter kit) diabetes tid testing blood-glucose sensor (FreeStyle Kaveh 3 Sensor device) tid testing cetirizine (Allergy Relief (cetirizine)) 10 mg PO DAILY cholecalciferol (vitamin D3) (Vitamin D3) 50 mcg PO DAILY dulaglutide (Trulicity) 4.5 mg (0.5 mL) subcut QWEEK ibuprofen 600 mg PO Q8H PRN insulin glargine (Lantus Solostar U-100 Insulin) 45 units (0.45 mL) subcut QPM irbesartan 75 mg PO DAILY metformin 1,000 mg PO BID metoprolol succinate ER 50 mg PO DAILY nicotine (polacrilex) 4 mg buccal Q2H omeprazole 20 mg PO BID oxymetazoline 0.05% (Afrin (oxymetazoline)) 2 sprays intranasal Q12H PRN 3 days pen needle, diabetic, safety (True Comfort Safety Pen Needle) Use to inject insulin once per day rosuvastatin 40 mg PO DAILY HPI HPI OV- LT knee OA: Details: 64-year-old female returns to the office today for a follow-up left knee osteoarthritis. She has had multiple steroid injections with minimal relief. Her most recent set of injections were Euflexxa which provided her with a proximally 9 months of relief. Just recently she started developing pain in the left knee which is limiting her activity. 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 Maternal Grandfather Unknown family medical history Paternal Grandfather Unknown family medical history Paternal Grandmother Unknown family medical history Paternal Aunt Ovarian cancer Social History Housing: House Alcohol intake: current Patient Tobacco Use Status: Current everyday Tobacco user Tobacco use type: Cigarette Cigarettes Per Day: 2 Years Smoked: (onset 30yo, 1ppd x 32yrs, now 6-7cig/day, 30pyh) e-Cigarette/Vaping Use: Never Used Second Hand Smoke Exposure: No Current occupational status: unemployed and retired Cognitive needs: No Hearing needs: No Vision needs: No Review of Systems Const All systems reviewed & are unremarkable except as noted in HPI and below Physical Exam Vital Signs: BMI result Body Mass Index 32.4 Const General: cooperative and no acute distress Orientation/consciousness: patient oriented x3 Resp Effort & Inspection: normal respiratory effort and able to speak in complete sentences Cardio Peripheral pulses: Peripheral pulses 2+ throughout Neuro General: patient oriented x3 Extrem Other: Left knee: Skin intact, no erythema or joint effusion. Tenderness along the medial and lateral joint line. Full ROM with crepitus. Negative Augustine?s. No ligamentous laxity. NVI. Assessment & Plan Assessment & Plan (1) Osteoarthritis of left knee: Code(s): M17.12 - Unilateral primary osteoarthritis, left knee Category: Medical Qualifiers: Osteoarthritis type: primary Qualified Code(s): M17.12 - Unilateral primary osteoarthritis, left knee Plan: Given the patient's continued pain and difficulty with daily activities we will obtain authorization for Euflexxa injections given her success with them in the past. Once the injections are approved we will contact her to schedule accordingly. Coding Level of Care Code Est Pt Level 3 (52935) Complex EM visit Add On G2211 Diagnoses Primary osteoarthritis of left knee M17.12 Osteoarthritis type: primary
[2025-03-22 08:31] VITALS: BMI 32.4
== END 2025-03-22 09:23 | disposition home or self-care (01) ==
LOC: HO.HOS 07:49
PROVIDERS: PCP Nurse Practitioner Family; Visit Provider Physician Assistant
DX: M17.12 Unilateral primary osteoarthritis, left knee (principal)
CPT/HCPCS: 99213; G2211

== ENCOUNTER → 2025-03-22 07:48 | Outpatient (BNVA) | payer OTHER, SELFPAY | PROVIDERS: PCP Nurse Practitioner Family; Visit Provider Physician Assistant | DX: M25.562 Pain in left knee (principal); M17.12 Unilateral primary osteoarthritis, left knee | CPT/HCPCS: 99212 ==

== ENCOUNTER 2025-04-05 14:36 | Outpatient (AMB) | payer OTHER, SELFPAY ==
--- NOTE | 2025-04-05 14:38 | MHC.OFFVIS ---
Intake Visit Reasons: INJ- LT knee Euflexxa#1 Intake Note: Areli is a 64 year old female who presents today for a left knee Euflexxa injection #1. Allergies hydrocortisone Allergy (Verified 04/05/25 14:41) Rash HPI HPI INJ- LT knee Euflexxa#1: Details: 64 year old female who presents today for a left knee Euflexxa injection #1. [facility] Medical History (Updated 01/25/25 @ 14:27 by Nahum Camarena, 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 Maternal Grandfather Unknown family medical history Paternal Grandfather Unknown family medical history Paternal Grandmother Unknown family medical history Paternal Aunt Ovarian cancer Social History Housing: House Alcohol intake: current Patient Tobacco Use Status: Current everyday Tobacco user Tobacco use type: Cigarette Cigarettes Per Day: 2 Years Smoked: (onset 30yo, 1ppd x 32yrs, now 6-7cig/day, 30pyh) e-Cigarette/Vaping Use: Never Used Second Hand Smoke Exposure: No Current occupational status: unemployed and retired Cognitive needs: No Hearing needs: No Vision needs: No Review of Systems Const All systems reviewed & are unremarkable except as noted in HPI and below Physical Exam Const General: cooperative and no acute distress Orientation/consciousness: patient oriented x3 Resp Effort & Inspection: normal respiratory effort and able to speak in complete sentences Cardio Peripheral pulses: Peripheral pulses 2+ throughout Neuro General: patient oriented x3 Extrem Other: Left knee: Skin intact, no erythema or joint effusion. Tenderness along the medial and lateral joint line. Full ROM with crepitus. Negative Augustine?s. No ligamentous laxity. NVI. Office Procedures AMB Joint Injection/Aspiration Joint Injection/Aspiration Details: euflexxa Primary Site: left knee Prep: site was prepped using aseptic technique, ethochloride spray was applied and injection warnings given Injected: in the joint Approach Used: anterolateral Procedure: The patient tolerated the procedure well Coding 35353 - Glenohumeral/Tronchanteric Bursa/Intraarticular Procedure code (CPT) selection complete Assessment & Plan Assessment & Plan (1) Osteoarthritis of left knee: Code(s): M17.12 - Unilateral primary osteoarthritis, left knee Category: Medical Qualifiers: Osteoarthritis type: primary Qualified Code(s): M17.12 - Unilateral primary osteoarthritis, left knee Plan: Plan was to proceed with gel injection today. Left knee Injection performed today which the patient tolerated well. She will rest ice and use anti-inflammatories as needed for the next several days. I will see her back in 1 week for injection number Coding Level of Care Code Procedure Only Diagnoses Primary osteoarthritis of left knee M17.12 Osteoarthritis type: primary CPT Codes Coding - Joint 7: 03359 - Glenohumeral/Tronchanteric Bursa/Intraarticular ([id number])
--- OUTSIDE RECORDS SUMMARY | 2025-04-05 17:45 | XMS_ITS | Clinical Summary ---
Author Organization [facility] Facility Address [address] [place] [address] Care Team Providers Care Optical Instrument Inspector Name Role Phone Darreljesus Nahum WINTERS Primary Care Provider [phone] Family History Relation Status Comments Father Unknown [...] patient's age to complete this topic Insurance [facility] One Care Dual SNP ([id number]) [facility] One Care Dual SNP ([id number]) [place] [id number] Care Teams Optical Instrument Inspector Relationship Specialty Start Date End Date Nahum Camarena NP [address] [place] [address] PCP - General Nurse Practitioner 07/09/22
--- OUTSIDE RECORDS SUMMARY | 2025-04-05 17:45 | XMS_ITS | Clinical Summary ---
Author Organization 175 [facility] Address 175 [place] [address] Phone Care Team Providers Care Cardiology Clinical Nurse Specialist Name Role Phone Nahum Camarena NP Primary [...] 10:45 AM EDT Office Visit Orthopedic Surgery [facility] [address] [phone] Dontrell Barron, DPM Dermatophytosis of nail (Primary Dx); Ingrowing nail; Diabetic mononeuropathy simplex ([facility] V24, [facility] V28) 01/24/2025 8:30 AM EDT Office Visit Orthopedic Surgery [facility] [address] [phone] Dontrell Barron DPM Cellulitis of great toe of right foot (Primary Dx); Dermatophytosis of nail; Ingrowing nail from Last 3 Months Surgical History Surgery Date Site/Laterality Comments OTHER SURGICAL HISTORY PROCEDURE: HISTORICAL TOTAL HYSTERECTOMY W/O BSO SECTION PROCEDURE: [place] DELIVERY ONLY; COMMENT: x2 LEG SURGERY PROCEDURE: [...] AM EST Office Visit Orthopedic Surgery - [place] [address] [address] [phone] Dontrell Barron DPM [address] [phone] Health Maintenance Due Date Last Done Comments [...] Group ID:[id number] Type:Not on file Address: [address] [place] [id number] Care Teams Cardiology Clinical Nurse Specialist Relationship Specialty Start Date End Date Nahum Camarena NP [address] [place], [place] PCP - General 08/20/23
--- OUTSIDE RECORDS SUMMARY | 2025-04-05 17:45 | XMS_ITS | Clinical Summary ---
Author Organization [facility] Address [address] [place] [address] Care Team Providers Care Chiropractic Physician Name Role Phone Unavailable Primary Care Provider [...] Screening 1960 Diabetes Screening 1960 HPV Screening (self-collect) 1960 HPV Screening 1960 Hepatitis C Screening [...] Drug Screen 06/01/2024 Depression Annual Screen 06/01/2024 [id number]-24 ( season) 2025 021, 08/21/2020 Imm-Influenza (#1) 2025 02/23/2019, 1 , 02/14/2016 Cervical Ablation/Cold-Knife Conization Discontinued Cervical Cryotherapy Discontinued Colposcopy Discontinued Excision/Leep Discontinued HPV Genotyping Discontinued Vaginal Pap Discontinued Vulvoscopy Discontinued Insurance [facility] [place] [id number]
== END 2025-04-05 15:23 | disposition home or self-care (01) ==
LOC: HO.HOS 14:37
PROVIDERS: PCP Nurse Practitioner Family; Visit Provider Physician Assistant
DX: M17.12 Unilateral primary osteoarthritis, left knee (principal)
CPT/HCPCS: 20610

== ENCOUNTER → 2025-04-05 14:36 | Outpatient (BNVA) | payer OTHER, SELFPAY | PROVIDERS: PCP Nurse Practitioner Family; Visit Provider Physician Assistant | DX: M17.12 Unilateral primary osteoarthritis, left knee (principal) | CPT/HCPCS: 20610; J7323 ==

== ENCOUNTER 2025-04-12 08:23 | Outpatient (AMB) | payer OTHER, SELFPAY ==
--- OUTSIDE RECORDS SUMMARY | 2025-04-12 08:34 | XMS_ITS | Clinical Summary ---
Author Organization 175 [facility] Address 175 [place] [address] Phone Care Team Providers Care Emergency Dispatch Operator Name Role Phone Nahum Camarena NP Primary [...] 4 (four) times a day if needed. butalbital-as pirin-caffein e (BUTALBITAL COMPOUND/ASA) per tablet Active ondansetron ODT [...] (one) time each day. 30 g 2 Active silver sulfADIAZINE (Silvadene) 1 % cream Apply topically 1 (one) time each day. 50 g 5 01/25/20 Active Active Problems Problem Noted Date Diagnosed Date Asthma 03/21/2024 Heartburn 03/21/2024 Migraines 03/21/2024 Obese 03/21/2024 Condition not found 05/04/2013 Overview (03/21/2024): Diabetes mellitus type 2, uncontrolled Encounters Date Type Department Care Team Description 02/06/2025 10:45 AM EDT Office Visit Orthopedic Surgery [facility] [address] [place] [phone] Dontrell Barron DPM Dermatophytosis of nail (Primary Dx); Ingrowing nail; Diabetic mononeuropathy simplex ([facility] V24, CMS/H[facility] V28) 01/24/2025 8:30 AM EDT Office Visit Orthopedic Surgery [facility] [address] [phone] Dontrell Barron DPM Cellulitis of great toe of right foot (Primary Dx); Dermatophytosis of nail; Ingrowing nail from Last 3 Months Surgical History Surgery Date Site/Laterality Comments OTHER SURGICAL HISTORY PROCEDURE: HISTORICAL TOTAL HYSTERECTOMY W/O BSO SECTION PROCEDURE: [place] DELIVERY ONLY; COMMENT: x2 LEG SURGERY PROCEDURE: [...] AM EST Office Visit Orthopedic Surgery - [place] [address] [phone] Dontrell Barron, DPM [address] [phone] Health Maintenance Due Date Last Done Comments [...] Diabetes: Blood Sugar Control Test (HGBA1C) 12/12/2024 COVID-19 Vaccine ( season) 2025 02/03/2024, 02/28/2022, 12/21/2021, Additional history exists DTaP,Tdap,and Td Vaccines (2 - Td or Tdap) 07/10/2033 07/10/2023 Zoster Vaccines Completed 02/24/2022, 12/21/2021 Pneumococcal Vaccine: 50+ Years Completed 04/02/2023, 02/24/2022, 04/16/2013 RSV Immunization Adult Patients Completed 05/06/2023 Influenza Vaccine Completed 02/03/2025, , 02/24/2023, Additional [...] to complete this topic Insurance MEDICAID - [place] [facility] MEDICARE Member Subscriber Plan / Payer (Ef fective 2013-Present) Name:ALEKSANDR CONTRERAS Relation to Subscriber:Self Name:Aleksandr Contreras Payer ID:[id number] Group ID:[id number] Type:Not on file Address: [address] [place] [id number] Care Teams Emergency Dispatch Operator Relationship Specialty Start Date End Date Nahum Camarena NP [address] [place], [place] PCP - General 08/20/23
--- OUTSIDE RECORDS SUMMARY | 2025-04-12 08:34 | XMS_ITS | Clinical Summary ---
Author Organization [facility] Facility Address [address] [place] [address] Care Team Providers Care Mixed Animal Veterinarian Name Role Phone Darreljesus Nahum WINTERS Primary Care Provider [phone] Family History Relation Status Comments Father Unknown [...] patient's age to complete this topic Insurance [facility] One Care Dual SNP ([id number]) [facility] One Care Dual SNP ([id number]) [place] [id number] Care Teams Mixed Animal Veterinarian Relationship Specialty Start Date End Date Nahum Camarena NP [address] [place] [address] PCP - General Nurse Practitioner 07/09/22
--- OUTSIDE RECORDS SUMMARY | 2025-04-12 08:35 | XMS_ITS | Clinical Summary ---
Author Organization [facility] Address [address] [place] [address] Care Team Providers Care Dope Heater Name Role Phone Unavailable Primary Care Provider [...] Drug Screen 06/01/2024 Depression Annual Screen 06/01/2024 Urt-ABOSP-00 ( season) 2025 021, 08/21/2020 Imm-Influenza (#1) 2025 02/23/2019, 1 , 02/14/2016 Cervical Ablation/Cold-Knife Conization Discontinued Cervical Cryotherapy Discontinued Colposcopy Discontinued Excision/Leep Discontinued HPV Genotyping Discontinued Vaginal Pap Discontinued Vulvoscopy Discontinued Insurance [facility]
[2025-04-12 08:41] VITALS: BMI 32.4
--- NOTE | 2025-04-12 08:41 | A.OFFVIS_ITS ---
Vital Signs 04/12/25 08:41 Height 5 ft Weight 166 lb BMI 32.4 Intake Visit Reasons: INJ-LT knee Euflexxa #2 Intake Note: Areli is a 64 year old female who presents today for an injection in her left knee, Euflexxa #2. Allergies hydrocortisone Allergy (Verified 04/12/25 08:41) Rash Medication List - Last Reconciled 04/12/25 by Michaelle Block PA-C acetaminophen 1,000 mg (2 x 500 mg) PO Q6H PRN albuterol sulfate 90 mcg/actuation (Ventolin HFA) 2 puffs inhalation Q4-6H PRN 30 days alcohol swabs (Easy Comfort Alcohol Pad topical pads) 1 pad topical QID aspirin 81 mg PO DAILY blood sugar diagnostic (FreeStyle Lite Strips) As directed 3 times a day blood-glucose meter (FreeStyle Lite Meter kit) diabetes tid testing blood-glucose sensor (FreeStyle Kaveh 3 Sensor device) tid testing cetirizine (Allergy Relief (cetirizine)) 10 mg PO DAILY cholecalciferol (vitamin D3) (Vitamin D3) 50 mcg PO DAILY dulaglutide (Trulicity) 4.5 mg (0.5 mL) subcut QWEEK ibuprofen 600 mg PO Q8H PRN insulin glargine (Lantus Solostar U-100 Insulin) 45 units (0.45 mL) subcut QPM irbesartan 75 mg PO DAILY metformin 1,000 mg PO BID metoprolol succinate ER 50 mg PO DAILY nicotine (polacrilex) 4 mg buccal Q2H omeprazole 20 mg PO BID oxymetazoline 0.05% (Afrin (oxymetazoline)) 2 sprays intranasal Q12H PRN 3 days pen needle, diabetic, safety (True Comfort Safety Pen Needle) Use to inject insulin once per day rosuvastatin 40 mg PO DAILY HPI HPI INJ-LT knee Euflexxa #2: Details: 64 year old female who presents today for a left knee Euflexxa injection #2. [facility] Medical History (Updated 01/25/25 @ 14:27 by Nahum Camarena, [facility]) Cellulitis, toe Lump of right breast CAD (coronary artery disease) HTN (hypertension) Dyslipidemia Diabetes type 2, uncontrolled Diabetic nephropathy associated with type 2 diabetes mellitus snf (current) use of insulin Stable proliferative diabetic retinopathy History of endometrial cancer HPV (human papilloma virus) infection Nicotine dependence, cigarettes, uncomplicated Carpal tunnel syndrome of left wrist Cataracts, bilateral Osteoarthritis Vitamin D deficiency Obesity (BMI 30-39.9) Surgical History History of colonoscopy History of esophagogastroduodenoscopy (EGD) History of hysterectomy History of section History of surgery Family History Father Diabetes mellitus Myocardial infarction Mother Unknown family medical history Maternal Grandmother No problems noted. Maternal Grandfather Unknown family medical history Paternal Grandfather Unknown family medical history Paternal Grandmother Unknown family medical history Paternal Aunt Ovarian cancer Social History Housing: House Alcohol intake: current Patient Tobacco Use Status: Current everyday Tobacco user Tobacco use type: Cigarette Cigarettes Per Day: 2 Years Smoked: (onset 30yo, 1ppd x 32yrs, now 6-7cig/day, 30pyh) e-Cigarette/Vaping Use: Never Used Second Hand Smoke Exposure: No Current occupational status: unemployed and retired Cognitive needs: No Hearing needs: No Vision needs: No Review of Systems Const All systems reviewed & are unremarkable except as noted in HPI and below Physical Exam Vital Signs: BMI result Body Mass Index 32.4 Const General: cooperative and no acute distress Orientation/consciousness: patient oriented x3 Resp Effort & Inspection: normal respiratory effort and able to speak in complete sentences Cardio Peripheral pulses: Peripheral pulses 2+ throughout Neuro General: patient oriented x3 Extrem Other: Left knee: Skin intact, no erythema or joint effusion. Tenderness along the medial and lateral joint line. Full ROM with crepitus. Negative Augustine?s. No ligamentous laxity. NVI. Office Procedures AMB Joint Injection/Aspiration Joint Injection/Aspiration Details: #2 euflexxa Primary Site: left knee Prep: site was prepped using aseptic technique, ethochloride spray was applied and injection warnings given Injected: in the joint Approach Used: anterolateral Procedure: The patient tolerated the procedure well Coding 75090 - Glenohumeral/Tronchanteric Bursa/Intraarticular Procedure code (CPT) selection complete Assessment & Plan Assessment & Plan (1) Osteoarthritis of left knee: Code(s): M17.12 - Unilateral primary osteoarthritis, left knee Category: Medical Qualifiers: Osteoarthritis type: primary Qualified Code(s): M17.12 - Unilateral primary osteoarthritis, left knee Plan: Plan was to proceed with gel injection today. Left knee Injection performed today which the patient tolerated well. She will rest ice and use anti- inflammatories as needed for the next several days. I will see her back in 1 week for injection number 3 Coding Level of Care Code Procedure Only Diagnoses Primary osteoarthritis of left knee M17.12 Osteoarthritis type: primary CPT Codes Coding - Joint 7: 53700 - Glenohumeral/Tronchanteric Bursa/Intraarticular ([id number])
== END 2025-04-12 09:59 | disposition home or self-care (01) ==
LOC: HO.HOS 08:23
PROVIDERS: PCP Nurse Practitioner Family; Visit Provider Physician Assistant
DX: M17.12 Unilateral primary osteoarthritis, left knee (principal)
CPT/HCPCS: 20610

== ENCOUNTER → 2025-04-12 08:23 | Outpatient (BNVA) | payer OTHER, SELFPAY | PROVIDERS: PCP Nurse Practitioner Family; Visit Provider Physician Assistant | DX: M17.12 Unilateral primary osteoarthritis, left knee (principal) | CPT/HCPCS: 20610; J7323 ==

== ENCOUNTER 2025-04-19 12:57 | Outpatient (AMB) | payer OTHER, SELFPAY ==
--- NOTE | 2025-04-19 13:11 | A.OFFVIS_ITS ---
Intake Visit Reasons: INJ- LT knee Euflexxa #3 Intake Note: Areli is a 64 year old female who presents today for a left knee Euflexxa injection #3. Allergies hydrocortisone Allergy (Verified 04/19/25 13:17) Rash Medication List - Last Reconciled 04/19/25 by Michaelle Block PA-C acetaminophen 1,000 mg (2 x 500 mg) PO Q6H PRN albuterol sulfate 90 mcg/actuation (Ventolin HFA) 2 puffs inhalation Q4-6H PRN 30 days alcohol swabs (Easy Comfort Alcohol Pad topical pads) 1 pad topical QID aspirin 81 mg PO DAILY blood sugar diagnostic (FreeStyle Lite Strips) USE 1 STRIP TO CHECK GLUCOSE THREE TIMES DAILY DIRECTED BY THE DOCTOR blood-glucose meter (FreeStyle Lite Meter kit) diabetes tid testing blood-glucose sensor (FreeStyle Kaveh 3 Sensor device) tid testing cetirizine (Allergy Relief (cetirizine)) 10 mg PO DAILY cholecalciferol (vitamin D3) (Vitamin D3) 50 mcg PO DAILY dulaglutide (Trulicity) 4.5 mg (0.5 mL) subcut QWEEK ibuprofen 600 mg PO Q8H PRN insulin glargine (Lantus Solostar U-100 Insulin) 45 units (0.45 mL) subcut QPM irbesartan 75 mg PO DAILY metformin 1,000 mg PO BID metoprolol succinate ER 50 mg PO DAILY nicotine (polacrilex) 4 mg buccal Q2H omeprazole 20 mg PO BID oxymetazoline 0.05% (Afrin (oxymetazoline)) 2 sprays intranasal Q12H PRN 3 days pen needle, diabetic, safety (True Comfort Safety Pen Needle) Use to inject insulin once per day rosuvastatin 40 mg PO DAILY HPI HPI INJ- LT knee Euflexxa #3: Details: 64 year old female who presents today for a left knee Euflexxa injection #3 PFSH Medical History (Updated 01/25/25 @ 14:27 by Nahum Camarena, [facility]) Cellulitis, toe Lump of right breast CAD (coronary artery disease) HTN (hypertension) Dyslipidemia Diabetes type 2, uncontrolled Diabetic nephropathy associated with type 2 diabetes mellitus residential (current) use of insulin Stable proliferative diabetic retinopathy History of endometrial cancer HPV (human papilloma virus) infection Nicotine dependence, cigarettes, uncomplicated Carpal tunnel syndrome of left wrist Cataracts, bilateral Osteoarthritis Vitamin D deficiency Obesity (BMI 30-39.9) Surgical History History of colonoscopy History of esophagogastroduodenoscopy (EGD) History of hysterectomy History of section History of surgery Family History Father Diabetes mellitus Myocardial infarction Mother Unknown family medical history Maternal Grandmother No problems noted. Maternal Grandfather Unknown family medical history Paternal Grandfather Unknown family medical history Paternal Grandmother Unknown family medical history Paternal Aunt Ovarian cancer Social History Housing: House Alcohol intake: current Patient Tobacco Use Status: Current everyday Tobacco user Tobacco use type: Cigarette Cigarettes Per Day: 2 Years Smoked: (onset 30yo, 1ppd x 32yrs, now 6-7cig/day, 30pyh) e-Cigarette/Vaping Use: Never Used Second Hand Smoke Exposure: No Current occupational status: unemployed and retired Cognitive needs: No Hearing needs: No Vision needs: No Review of Systems Const All systems reviewed & are unremarkable except as noted in HPI and below Physical Exam Const General: cooperative and no acute distress Orientation/consciousness: patient oriented x3 Resp Effort & Inspection: normal respiratory effort and able to speak in complete sentences Cardio Peripheral pulses: Peripheral pulses 2+ throughout Neuro General: patient oriented x3 Extrem Other: Left knee: Skin intact, no erythema or joint effusion. Tenderness along the medial and lateral joint line. Full ROM with crepitus. Negative Augustine?s. No ligamentous laxity. NVI. Office Procedures AMB Joint Injection/Aspiration Joint Injection/Aspiration Primary Site: Left Knee Prep: site was prepped using aseptic technique, ethochloride spray was applied and injection warnings given Injected: Euflexxa (#3) Approach Used: anterolateral Procedure: The patient tolerated the procedure well Coding 44332 - Glenohumeral/Tronchanteric Bursa/Intraarticular Procedure code (CPT) selection complete Assessment & Plan Assessment & Plan (1) Osteoarthritis of left knee: Code(s): M17.12 - Unilateral primary osteoarthritis, left knee Category: Medical Qualifiers: Osteoarthritis type: primary Qualified Code(s): M17.12 - Unilateral primary osteoarthritis, left knee Plan: Plan was to proceed with gel injection today. Left knee Injectioneuflexxa performed today which the patient tolerated well. She will rest ice and use anti-inflammatories as needed for the next several days. She will continue with activity as tolerated and see me back if symptoms persist or worsen, otherwise, prn. Coding Level of Care Code Procedure Only Diagnoses Primary osteoarthritis of left knee M17.12 Osteoarthritis type: primary CPT Codes Coding - Joint 7: 74340 - Glenohumeral/Tronchanteric Bursa/Intraarticular ([id number])
--- OUTSIDE RECORDS SUMMARY | 2025-04-20 00:50 | XMS_ITS | Clinical Summary ---
Author Organization [facility] Facility Address [address] [place] [address] Care Team Providers Care Electrician Front Name Role Phone Darreljesus Nahum WINTERS Primary Care Provider [phone] Family History Relation Status Comments Father Unknown [...] patient's age to complete this topic Insurance [facility] One Care Dual SNP ([id number]) [facility] One Care Dual SNP ([id number]) [place] [id number] Care Teams Electrician Front Relationship Specialty Start Date End Date Nahum Camarena NP [address] [place] [address] PCP - General Nurse Practitioner 07/09/22
== END 2025-04-19 13:46 | disposition home or self-care (01) ==
LOC: HO.HOS 12:59
PROVIDERS: PCP Nurse Practitioner Family; Visit Provider Physician Assistant
DX: M17.12 Unilateral primary osteoarthritis, left knee (principal)
CPT/HCPCS: 20610

== ENCOUNTER → 2025-04-19 12:57 | Outpatient (BNVA) | payer OTHER, SELFPAY | PROVIDERS: PCP Nurse Practitioner Family; Visit Provider Physician Assistant | DX: M17.12 Unilateral primary osteoarthritis, left knee (principal) | CPT/HCPCS: 20610; J7323 ==

== ENCOUNTER 2025-04-24 09:02 | Outpatient (REF) | payer OTHER, SELFPAY ==
--- NOTE | ~2025-04-24 | MM_ITS ---
EXAMINATION: MM SCREENING DIGITAL BREAST TOMOSYNTHESIS, BILATERAL CLINICAL INFORMATION: Screening. Asymptomatic. COMPARISON: Mammography: Comparison is made with available priors TECHNIQUE: Digital breast mammography with tomosynthesis is performed in both the craniocaudal and mediolateral oblique views along with computer-aided detection (CAD). FINDINGS: The breasts are heterogeneously dense, which may obscure small masses. There are no significant masses, abnormal calcifications, or other abnormalities. MM/MM tomosynthesis screening BI IMPRESSION: No mammographic evidence of malignancy. ASSESSMENT: BI-RADS Category 1: Negative RECOMMENDATION: Routine annual mammography screening. 1 year F/U This examination should not preclude the clinical evaluation of a suspicious palpable abnormality. This patient's information was entered into a reminder system with a target due date for their next mammogram. Electronically signed by: Caren Cleaning DO 04/25/2025 03:31 PM LISANDRO
--- OUTSIDE RECORDS SUMMARY | 2025-04-24 09:48 | XMS_ITS | Clinical Summary ---
Author Organization [facility] Facility Address [address] [place] [address] Care Team Providers Care Cement Gun Operator Name Role Phone Darreljesus Nahum WINTERS Primary Care Provider [phone] Family History Relation Status Comments Father Unknown [...] patient's age to complete this topic Insurance [facility] One Care Dual SNP ([id number]) [place] [id number] [facility] One Care Dual SNP ([id number]) [place] [id number] Care Teams Cement Gun Operator Relationship Specialty Start Date End Date Nahum Camarena NP [address] [place] [address] PCP - General Nurse Practitioner 07/09/22
--- OUTSIDE RECORDS SUMMARY | 2025-04-24 09:48 | XMS_ITS | Clinical Summary ---
Author Organization 175 [facility] Address [address] [place] [address] Phone Care Team Providers Care Honing Machine Set Up Operator Name Role Phone Nahum Camarena NP [...] Office Visit Orthopedic [facility] [address] [place] [phone] Dontrell Barron DPM Dermatophytosis of nail (Primary Dx); Ingrowing nail; Diabetic mononeuropathy simplex ([facility] V24, CMS/HCC V28) 01/24/2025 8:30 AM EDT Office Visit Orth[facility] [address] [phone] Dontrell Barron DPM Cellulitis of great toe of right foot (Primary Dx); Dermatophytosis of nail; Ingrowing nail from Last 3 Months Surgical History Surgery Date Site/Laterality Comments OTHER SURGICAL HISTORY PROCEDURE: HISTORICAL TOTAL HYSTERECTOMY W/O BSO SECTION PROCEDURE: [place] DELIVERY ONLY; COMMENT: x2 LEG SURGERY PROCEDURE: [...] AM EST Office Visit Orthopedic Surgery - [place] [address] [phone] Dontrell Barron, DPM [address] [phone] Health Maintenance Due Date Last Done Comments Breast Cancer Screening 1960 Colorectal Cancer Screening: Colonoscopy 1960 Diabetes: Annual GFR (Glomerular Filtration Rate) 1960 Diabetes: Annual Foot Exam 1970 Diabetes: Annual Retina Eye Exam 1970 Cervical Cancer Screening: Pap Smear 1981 Cholesterol Screening (Lipid Panel) 12/29/2023 Hepatitis C Screening 12/29/2023 Medicare Annual Wellness Visit 12/29/2023 Osteoporosis Screening (Bone Density Screening) 12/29/2023 Social Influencers of Health Screening 12/29/2023 Depression Screening 06/01/2024 Diabetes: Annual Urine Albumin-Creatinine Ratio (uACR) 12/12/2024 Diabetes: Blood Sugar Control Test (HGBA1C) 12/12/2024 COVID-19 Vaccine ( season) 2025 02/03/2024, 02/28/2022, 12/21/2021, Additional history exists Falls Risk Assessment 2025 DTaP,Tdap,and Td Vaccines (2 - Td or [...] to complete this topic Insurance [place]ICAID - [place] [facility] MEDICARE Member Subscriber Plan / Payer (Ef fective 2013-Present) Name:ALEKSANDR CONTRERAS Relation to Subscriber:Self Name:Aleksandr Contreras Payer ID:[id number] Group ID:[id number] Type:Not on file Address: [address] [place] [id number] Care Teams Honing Machine Set Up Operator Relationship Specialty Start Date End Date Nahum Camarena NP [address] [place], [place] PCP - General 08/20/23
== END 2025-04-24 09:03 | disposition home or self-care (01) ==
LOC: HO.MAMMO 09:02
PROVIDERS: PCP Nurse Practitioner Family; Visit Provider Nurse Practitioner Family
DX: Z12.31 Encounter for screening mammogram for malignant neoplasm of breast (principal)
CPT/HCPCS: 77063; 77067

== ENCOUNTER → 2025-04-24 10:00 | Outpatient (BNV) | payer OTHER, SELFPAY | PROVIDERS: PCP Nurse Practitioner Family; Visit Provider Internal Medicine | DX: Z12.31 Encounter for screening mammogram for malignant neoplasm of breast (principal) | CPT/HCPCS: 77063; 77067 ==

== ENCOUNTER 2025-05-10 08:31 | Outpatient (REF) | payer OTHER, SELFPAY ==
--- NOTE | ~2025-05-10 | XR_ITS ---
EXAMINATION: XR HAND, RIGHT CLINICAL INFORMATION: M79.641 - Pain in right hand COMPARISON: April 05, 2015 TECHNIQUE: PA, lateral, and oblique views of the right hand. FINDINGS: Marginal osteophyte formation and asymmetric joint space narrowing mild sclerosis along the articular surface of the distal interphalangeal joints of the second third and to a lesser extent fourth and fifth digits. Sclerosis along the articular surface of the first carpometacarpal joint No lytic or blastic lesions. No acute fracture or dislocation. No gross soft tissue complications. No suspicious emphysema. 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 Electronically signed by: Eleuterio Bustillos MD 05/10/2025 03:05 PM LISANDRO PHAM
== END 2025-05-10 08:32 | disposition home or self-care (01) ==
LOC: HO.HOSX 08:31
PROVIDERS: Visit Provider Orthopaedic Surgery
DX: M65.351 Trigger finger, right little finger (principal); E11.65 Type 2 diabetes mellitus with hyperglycemia; R20.0 Anesthesia of skin; R20.2 Paresthesia of skin
CPT/HCPCS: 73130

== ENCOUNTER 2025-05-10 14:28 | Outpatient (AMB) | payer OTHER, SELFPAY ==
--- OUTSIDE RECORDS SUMMARY | 2025-05-09 10:15 | XMS_ITS | Encounter Summary ---
Author Organization [facility] Address [address] [place] [address] Care Team Providers Care Psych Coordinator Name Role Phone Nahum Camarena NP Primary Care Provider Reason for Visit * Reason Comments Nail Problem Fungus Encounter Details Date Type Department Care Team ([facility] Contact Info) Description 05/09/2025 10:15 AM EST Office Visit Orthopedic Surgery - [place] [address] [phone] Dontrell Barron DPM [address] [phone] Tinea pedis of both feet (Primary Dx); Dermatophytosis of nail; Ingrowing nail; Diabetic mononeuropathy simplex (CMS/HCC V24, CMS/HCC V28); Pain in toe of right foot; Pain in toe of left foot Social History Tobacco Use Types Packs/Day Years [...] on file Sexual Orientation Not on file documented as of this encounter Ordered Prescriptions Prescription Sig Dispense Quantity Refills Last Filled Start Date End Date miconazole (Lotrimin AF) 2 % powder Apply topically 2 (two) times a day for 28 days. 70 g 3 05/09/2025 documented in this encounter Progress Notes * Dontrell Barron DPM - 05/09/2025 10:15 AM EST S Patient reports worsening redness swelling irritation of right great toe has resolved redness swelling is resolved she is doing much better at this time does note that her skin has been improved as she is still doing well with her feet and occasionally gets numbness and tingling is type II diabetichas been using some topical antifungals improvement of her other toenails reports she still has some irritation of her nails and skin would like to know what is can be tried to help clear up her nails and skin that been bothering her ROS: GENERAL: Pt denies nausea, fever, vomiting, chills, or shortness of breath. Pt in NAD. CARDIOLOGY: pt denies chest pain, palpitations LUNGS: pt denies shortness of breath MUSCULOSKELETAL: See HPI, otherwise no joint pain or swelling, back pain, or muscle pain. SKIN: see HPI, otherwise no lesions, rash or itching NEURO: No persistent headache, weakness or numbness The remainder of the review of systems is noncontributory PAST MEDICAL HISTORY: Patient Active Problem List Diagnosis Condition not found Asthma Heartburn Migraines Obese SOCIAL HISTORY: Social History Tobacco Use Smoking status: Every Day Current packs/day: 0.10 Types: Cigarettes Smokeless tobacco: Never Substance Use Topics Alcohol use: No ACTIVE MEDICATIONS: No outpatient medications have been marked as taking for the 05/09/25 encounter (Office Visit) with Dontrell Barron DPM. ALLERGIES: Allergies Allergen Reactions Hydrocortisone PHYSICAL EXAM: Visit Vitals Smoking Status Every Day PODIATRIC EXAMINATION: GENERAL: Patient appears well nourished, with NAD. VASCULAR: Dorsalis pedis pulses are 1/4 bilaterally and Posterior tibial pulses are 1/4 bilaterally. Capillary filling time within normal limits the digits. No pallor on elevation or rubor on dependency. No varicosities. Denies rest pain or claudication pain. NEUROLOGICAL: Sharp/dull sensation diminished, protective sensation intact 10/10 with Ipswitch touch test bilaterally, vibratory sensation intact to the tibial tuberosity. ORTHOPEDIC: Good muscle strength 5/5 of all flexors and extensors. Dorsi flexion of ankle ,10 degrees, plantar flexion WNL. No muscle atrophy. DERMATOLOGICAL:.Toenails: Left Toenail(s) 1-5: subungual debris, discoloration, hypertrophic, elongation, mycotic appearance, onychomycosis, pain and thickening. Right Toenail(s) 1-5: subungual debris, discoloration, hypertrophic, elongation, mycotic appearance, onychomycosis, pain and thickening. Annular scaling bilateral feet moccasin distribution Skin thinning texture shiny appearance diffuse hyperpigmentation bilaterally pedal hair decreased BIOMECHANICS: Ankle ROM WNL, STJ ROM wnl, MTJ ROM wnl, 1st MPJ ROM wnl. IMAGING: IMPRESSION: 1. Tinea pedis of both feet 2. Dermatophytosis of nail 3. Ingrowing nail 4. Diabetic mononeuropathy simplex (CMS/HCC V24, CMS/HCC V28) 5. Pain in toe of right foot 6. Pain in toe of left foot PLAN: Pt was seen and examined, history reviewed. Discussed worsening tinea pedis of nails and skin miconazole powder prescribed to be applied daily Discussed with patient regarding proper glucose control, exercise, and diet. Explained to patient proper shoe gear, and importance of daily foot checks. I reviewed neuropathy and why it occurs in diabetics. I educated the patient on proper blood sugar control and the importance of an HgBA1c of less than 7.0%. I reviewed the signs and symptoms of neuropathy with the patient Pt to return for another evaluation in 3 months. Dontrell Barron DPM documented in this encounter Plan of Treatment Upcoming Encounters Date Type Department Care Team (Late st Contact Info) Description 07/10/2025 9:00 AM EST Office Visit Orthopedic Surgery - [place] [address] [phone] Dontrell Barron DPM [address] [phone] documented as of this encounter Visit Diagnoses Diagnosis Tinea pedis of both feet- Primary Dermatophytosis of nail Ingrowing nail Diabetic mononeuropathy simplex (CMS/HCC V24, CMS/HCC V28) Type II or unspecified type diabetes mellitus with neurological manifestations, not stated as uncontrolled Pain in toe of right foot Pain in soft tissues of limb Pain in toe of left foot Pain in soft tissues of limb documented in this encounter Care Teams Psych Coordinator Relationship Specialty Start Date End Date Nahum Camarena NP [facility] [place] [facility] - [facility] 08/20/23 documented as of this encounter
--- NOTE | 2025-05-10 14:47 | A.OFFVIS_ITS ---
Vital Signs 05/10/25 14:54 Height 5 ft Weight 166 lb BMI 32.4 Intake Visit Reasons: Newprob-Right hand/wrist pain/limited ROM Intake Note: Areli is a 65 year old right hand dominant female who presents today for a new problem visit to evaluate right hand pain. Patient reports pain at the base of her fingers and swelling in 2nd, 3rd finger and 5th digit. States her discomfort has been present for about 2 months. Denies injury. NO other treatments. She purchased OTC gloves to help with pain however this made her hand swell. Complaints of numbness in her fingers at times. Denies wrist pain. Allergies hydrocortisone Allergy (Verified 05/10/25 14:53) Rash HPI HPI Newprob-Right hand/wrist pain/limited ROM: Details: Areli is a 65 year old right hand dominant Diabetic woman who returns with complaints of right hand pain & numbness She complains of pain & swelling at the base of her index, middle, and small fingers. She says she has limited ROM of her fingers as well. Her chief complaint is of her small finger pain. This has been present for ~2 months. She denies any locking or catching. She denies any known injury or prior treatment options She also complains of numbness in her right hand. Symptoms intermittent & occasional, primarily early mornings. In regards to her left hand: She says her left hand sensation is improved and she now gets numbness in her fingers intermittent, but daily. She says her left hand ROM has improved, which she is happy about. She smokes cigarettes and has a hx of CAD & DM. She is currently not working. She is TUAN positive. She denies a recent HgA1c [facility] Medical History (Updated 05/10/25 @ 15:10 by Suhas Hernandez) Cellulitis, toe Lump of right breast CAD (coronary artery disease) HTN (hypertension) Dyslipidemia Diabetes type 2, uncontrolled Diabetic nephropathy associated with type 2 diabetes mellitus custodial (current) use of insulin Stable proliferative diabetic retinopathy History of endometrial cancer HPV (human papilloma virus) infection Nicotine dependence, cigarettes, uncomplicated Carpal tunnel syndrome of left wrist Cataracts, bilateral Osteoarthritis Vitamin D deficiency Obesity (BMI 30-39.9) Surgical History History of colonoscopy History of esophagogastroduodenoscopy (EGD) History of hysterectomy History of section History of surgery Family History Father Diabetes mellitus Myocardial infarction Mother Unknown family medical history Maternal Grandmother No problems noted. Maternal Grandfather Unknown family medical history Paternal Grandfather Unknown family medical history Paternal Grandmother Unknown family medical history Paternal Aunt Ovarian cancer Social History Housing: House Alcohol intake: current Patient Tobacco Use Status: Current everyday Tobacco user Tobacco use type: Cigarette Cigarettes Per Day: 2 Years Smoked: (onset 30yo, 1ppd x 32yrs, now 6-7cig/day, 30pyh) e-Cigarette/Vaping Use: Never Used Second Hand Smoke Exposure: No Current occupational status: unemployed and retired Cognitive needs: No Hearing needs: No Vision needs: No Review of Systems Const All systems reviewed & are unremarkable except as noted in HPI and below Physical Exam Vital Signs: BMI result Body Mass Index 32.4 Const General: no acute distress and alert Orientation/consciousness: patient oriented x3 Neuro General: patient oriented x3 Extrem Other: Evaluation of Right Upper Extremity: The patient is alert, oriented, and in no acute distress Neuro: Median, Ulnar, Radial nerves motor and sensory intact and sensation is normal to the tips of all digits Bilaterally Vascular: Cap refill brisk ROM: With encouragement, she can make a fist and extend all her digits Most tender over the a1 gillian of the small finger No locking or catching Mild flexion contractures of the index & middle finger PIP joints, which improved with exercises in clinic In regards to her left hand, she is now able to easily make a fist and extend all her digits. This is a significant improvement from her last visit. Radiographs: 3 views of the right hand were taken and viewed by me today in clinic. They show no fractures or dislocations. Some arthritic changes in multiple DIP joints & some early arthritis in the basal joint. Nerve Conduction Study: Left-side only IMPRESSION: 1. This is an abnormal study. 2. There is electrodiagnostic evidence for left severe median neuropathy at the wrist, consistent with carpal tunnel syndrome. 3. There is no electrodiagnostic evidence for ulnar neuropathy, brachial plexopathy, or cervical radiculopathy. Angelina Pepe MD, LUCIO 10/28/23 Psych Appearance: grossly normal Affect: normal affect Attitude: cooperative Office Procedures AMB Fracture Care Details: No fracture, injection Fracture Billing Code: Fracture Billing Code Assessment & Plan Assessment & Plan (1) Trigger little finger of right hand: Code(s): M65.351 - Trigger finger, right little finger Category: Medical (2) Numbness and tingling in right hand: Code(s): R20.0 - Anesthesia of skin; R20.2 - Paresthesia of skin Category: Medical (3) Diabetes type 2, uncontrolled: Code(s): E11.65 - Type 2 diabetes mellitus with hyperglycemia Category: Medical Plan Assessment & Plan: 1. Right small finger pre-trigger tenosynovitis 2. Right hand numbness Symptoms intermittent and occasional, primarily in the mornings I educated her about this condition I recommend an injection, and she is in agreement She is not interested in a NCS at this time I recommend she continue to work on ROM exercises at home Injection #1: The risks and benefits of a steroid injection including but not limited to risk of damage to blood vessels, nerves, tendons, infection, skin bleaching, failure to improve symptoms, increased pain, and possible need for further injections or other intervention were discussed with the patient and the patient wishes to proceed with the steroid injection. Once consent was obtained, I sterilely prepped the area over the A1 gillian of the flexor tendon sheath of the Right small finger. I then injected the flexor tendon sheath with a combination of 1 mL of dexamethasone (4mg/ml), and 1% lidocaine. The patient tolerated the procedure well with no complications. If the patient continues to have locking and catching 4-6 weeks following this injection, they may call to schedule appointment to discuss alternative treatment options They will follow up when the NCS is completed for review 3. Left hand stiffness In all digits Resolved 4. Left carpal tunnel syndrome, severe Symptoms now improved, intermittent, but daily, worse at night She feels her left hand numbness has improved in his not interested in treatment at this time. We can discuss treatment at a later date Scribed for Lisa Leyva MD by Suhas Hernandez, medical insurance coding specialist, on 05/10/25 at 3:00 PM, EST. Orders: Orders XR hand RT min 3V Today M79.641 - Pain in right hand Coding Level of Care Code Est Pt Level 3 (25345) Diagnoses Trigger little finger of right hand M65.351 Numbness and tingling in right hand R20.0; R20.2 Diabetes type 2, uncontrolled E11.65 CPT Codes Fracture Care - Fracture Billing Code: Fracture Billing Code ([id number])
[2025-05-10 14:54] VITALS: BMI 32.4
--- OUTSIDE RECORDS SUMMARY | 2025-05-10 22:41 | XMS_ITS | Clinical Summary ---
Author Organization [facility] Facility Address [address] [place] [address] Care Team Providers Care Senior Marketing Analyst Name Role Phone Darreljesus Nahum WINTERS Primary Care Provider [phone] Family History Relation Status Comments Father Unknown [...] patient's age to complete this topic Insurance [facility] One Care Dual SNP ([id number]) [facility] One Care Dual SNP ([id number]) [place] [id number] Care Teams Senior Marketing Analyst Relationship Specialty Start Date End Date Nahum Camarena NP [address] [place] [address] PCP - General Nurse Practitioner 07/09/22
--- OUTSIDE RECORDS SUMMARY | 2025-05-10 22:42 | XMS_ITS | Clinical Summary ---
Author Organization 175 [facility] Address [address] [place] [address] Phone Care Team Providers Care In School Suspension Aide Name Role Phone Nahum Camarena NP Primary [...] (one) time each day. 30 g 2 5 Active silver sulfADIAZINE (Silvadene) 1 % cream Apply topically 1 (one) time each day. 50 g 5 01/25/20 26 Active miconazole (Lotrimin AF) 2 % powder Apply topically 2 (two) times a day for 28 days. 70 g 3 5 06/06/19 26 Active Active Problems Problem Noted Date Diagnosed Date Asthma 03/21/2024 Heartburn 03/21/2024 Migraines 03/21/2024 Obese 03/21/2024 Condition not found 05/04/2013 Overview (03/21/2024): Diabetes mellitus type 2, uncontrolled Encounters Date Type Department Care Team Description 05/09/2025 10:15 AM EST Office Visit Orthopedic Surgery - [place] [address] [place] [id number] Dontrell Barron, DPM Tinea pedis of both feet (Primary Dx); Dermatophytosis of nail; Ingrowing nail; Diabetic mononeuropathy simplex (CMS/HCC V24, CMS/HCC V28); Pain in toe of right foot; Pain in toe of left foot from Last 3 Months Surgical History Surgery Date Site/Laterality Comments OTHER SURGICAL HISTORY PROCEDURE: HISTORICAL TOTAL HYSTERECTOMY W/O BSO SECTION PROCEDURE: OR DELIVERY ONLY; COMMENT: x2 LEG SURGERY PROCEDURE: [...] on file Sexual Orientation Not on file Last Filed Vital Signs Vital Sign Reading [...] AM EST Office Visit Orthopedic Surgery - [place] [address] [phone] Dontrell Barron, DPM [address] [phone] Health Maintenance Due Date Last Done Comments [...] of Health Screening 12/29/2023 Depression Screening 06/01/2024 Falls Risk Assessment 2025 Diabetes: Annual Urine Albumin-Creatinine Ratio (uACR) 05/09/2025 Diabetes: Blood Sugar Control Test (HGBA1C) 05/09/2025 COVID-19 Vaccine (8 - 2025-26 season) 2025 05/02/2025, 02/03/2024, 02/28/2022, Additional history exists DTaP,Tdap,and Td Vaccines (2 [...] to complete this topic Insurance MEDICAID - [facility] MEDICARE Member Subscriber Plan / Payer (Ef fective 2013-Present) Name:ALEKSANDR CONTRERAS Relation to Subscriber:Self Name:Aleksandr Contreras Payer ID:[id number] Group ID:[id number] Type:Not on file Address: [address] [place] [id number] Care Teams In School Suspension Aide Relationship Specialty Start Date End Date Nahum Camarena NP [address] [place], [place] PCP - General 08/20/23
== END 2025-05-10 15:33 | disposition home or self-care (01) ==
LOC: HO.HOS 14:29
PROVIDERS: PCP Nurse Practitioner Family; Visit Provider Orthopaedic Surgery
DX: M65.351 Trigger finger, right little finger (principal); R20.0 Anesthesia of skin; R20.2 Paresthesia of skin; E11.65 Type 2 diabetes mellitus with hyperglycemia
CPT/HCPCS: 20550; 99213

== ENCOUNTER → 2025-05-10 14:30 | Outpatient (BNV) | payer OTHER, SELFPAY | PROVIDERS: Visit Provider Radiology Diagnostic Radiology | DX: M79.641 Pain in right hand (principal) | CPT/HCPCS: 73130 ==